=== PATIENT | female | born 1950 | race Caucasian/White ===

== ENCOUNTER 2018-02-08 23:45 | Emergency (ER) | payer MEDICARE ==
[~2018-02-08] VITALS: Ht 157.5 cm; Wt 74.8 kg
--- OUTSIDE RECORDS SUMMARY | 2018-02-08 23:47 | XMS REPORT | Clinical Summary ---
Author Author [facility] Organization [facility] Address Unknown Phone Unavailable Care Team Providers Care Configuration Release Manager Name Role Phone Asked, No Pcp PCP Unavailable Allergies No Known Allergies Medications End Date Status Medication Sig Dispensed Refills Start Date Active SYMBICORT 160-4.5 0 mcg/actuation inhaler 8 Active citalopram (CeleXA) 20 MG 0 tablet 8 Active DULoxetine (CYMBALTA) 60 0 MG capsule 8 Active gabapentin (NEURONTIN) 0 300 mg capsule 8 Active traMADol (ULTRAM) 50 mg 0 tablet 8 Active naproxen (NAPROSYN) 250 Take 250 mg 0 MG tablet by mouth 2 (two) times a day with meals. Active Problems No known active problems Encounters Care Team Description Date Type Specialty Fito Alvarez MD 05/27/2017 Anesthesia General Surgery Event Vladimir Schroeder MD Cholecystectomy, Laparoscopic, With Possible Cholangiography, 05/27/2017 Surgery General Surgery Vladimir Schroeder MD Acute calculous cholecystitis 05/27/2017 Hospital General Surgery Encounter Vladimir Schroeder MD Preoperative testing 05/23/2017 Hospital Radiology Encounter Vladimir Schroeder MD Preoperative testing (Primary Dx) 05/23/2017 Pre-Admit Pre-Admission Testing Testing Appointment after 02/07/2017 Family History Medical History Relation Name Comments Depression Brother Stroke Mother Arthritis Sister Relation Name Status Comments Brother Father Mother Sister Social History Date Tobacco Use Types Packs/Day Years Used Quit: 2004 Former Smoker Cigarettes 0.5 4 Smokeless Tobacco: Never Used Alcohol Use Drinks/Week oz/Week Comments No Sex Assigned at Date Recorded Not on file Industry Job Start Date Occupation Not on file Not on file Not on file Travel End Travel History Travel Start No recent travel history available. Last Filed Vital Signs Time Taken Vital Sign Reading 05/27/2017 1:59 PM CDT Blood Pressure 102/60 05/27/2017 1:59 PM CDT Pulse 72 05/27/2017 1:16 PM CDT Temperature 36.4 C (97.6 F) 05/27/2017 1:59 PM CDT Respiratory Rate 16 05/27/2017 1:59 PM CDT Oxygen Saturation 93% - Inhaled Oxygen - Concentration 05/27/2017 8:17 AM CDT Weight 70.8 kg (156 lb 1.6 oz) 05/27/2017 8:17 AM CDT Height 157.5 cm (5' 2") 05/27/2017 8:17 AM CDT Body Mass Index 28.55 Plan of Treatment Health Maintenance Due Date Last Done Comments BREAST CANCER SCREENING 11/09/2001 COLON CANCER SCREENING 11/09/2001 SHINGRIX VACCINE (1 of 2) 11/09/2001 ZOSTER VACCINE 2011 PNEUMOCOCCAL 11/09/2016 POLYSACCHARIDE VACCINE AGE 65 AND OVER PNEUMOCOCCAL-13 11/09/2016 INFLUENZA VACCINE 10/12/2017 Procedures Comments Procedure Name Priority Date/Time Associated Diagnosis SURGICAL PATHOLOGY Routine 05/27/2017 REQUEST 2:47 PM CDT FL CHOLANGIOGRAM Routine 05/27/2017 INTRAOPERATIVE 12:05 PM CDT MO AN ELECTIVE Routine 05/27/2017 ENDOTRACHEAL AIRWAY 10:51 AM CDT Procedure Note - Abner Hauser - 05/27/2017 10:51 AM CDT Airway Date/Time: 05/27/2017 10:45 AM Performed by: ABNER HAUSER Authorized by: ABNER HAUSER Location: OR Urgency: Elective Difficult Airway: No Anesthesio logist: ABNER HAUSER Performed by: anesthesio logist Preoxygena leigh ann with 100% O2: Yes C-spine Precaution s Maintained Throughout : Yes Mask Ventilatio n: Easy mask (with # 8 oral airway) Final Airway Type: Endotrache al airway Final Endotrache al Airway: ETT Cuffed: Yes Technique Used: Direct laryngosco py Devices/Me thods Used in Placement: Intubatin g stylet Insertion Site: Oral Blade Type: Rony Laryngosco pe Blade/Vide olaryngosc ope Blade Size: 3 ETT Size (mm): 6.5 Cuff at minimum occlusion pressure: Yes Measured from: Lips ETT to Lips (cm): 20 Placement Verified by: CO2 detection, direct visualizat ion and equal breath sounds Laryngosco pic view: Grade IIa - partial view of glottis Rapid Sequence Induction (RSI): No Modified RSI: No Number of Attempts at Approach: 1 XR CHEST 2 VW Routine 05/23/2017 Preoperative testing 4:03 PM CDT ZZESTIMATED GFR Routine 05/23/2017 3:40 PM CDT COMPREHENSIVE METABOLIC Routine 05/23/2017 Preoperative testing PANEL 3:40 PM CDT HC COMPLETE BLD COUNT Routine 05/23/2017 Preoperative testing W/AUTO DIFF 3:40 PM CDT ECG PRE/POST OP Routine 05/23/2017 Preoperative testing 2:36 PM CDT after 02/07/2017 Results * Surgical pathology request (05/27/2017 2:47 PM CDT) [facility] OF PATHOLOGY AND GENOMIC MEDICINE Surgical pathology report See link below for PDF Lab [facility] DEPARTMENT OF Report PATHOLOGY AND GENOMIC MEDICINE Result status This is Final Report to [facility] DEPARTMENT OF [id number] PATHOLOGY AND GENOMIC MEDICINE Performing Organization Address City/State/Zipcode Phone Number [facility] DEPARTMENT OF [facility] [place] [address] PATHOLOGY AND GENOMIC MEDICINE * FL Cholangiogram Intraoperative (05/27/2017 12:05 PM CDT) Narrative Performed At PROCEDURE:FL CHOLANGIOGRAM INTRAOPERATIVE [facility] CLINICAL HISTORY:Laparoscopic cholecystectomy COMPARISON:None. TECHNIQUE: 2 fluoroscopic spot images of the right upper quadrant to encompass the biliary tree in the AP projection were performed on the C-arm fluoroscopic device in the OR. A total kV of84, mA of 2.5, and fluoroscopic time of1 second was offered to for the procedure. Fluoroscopic assistance was offered for the procedure. The DAP (dose absorbed product) is: 0.01 mGy-cm^2 FINDINGS: A total of 6 mL of Omnipaque [address] Schroeder for the procedure. Opacification of the common bile duct and visualized common hepatic duct and intrahepatic biliary tree demonstrates no filling defects. Free flow of contrast is demonstrated into the duodenum. IMPRESSION: No evidence of retained stones. [id number] . Procedure Note Interface, Radiology Results Incoming - 05/27/2017 1:01 PM CDT PROCEDURE: FL CHOLANGIOGRAM INTRAOPERATIVE CLINICAL HISTORY: Laparoscopic cholecystectomy COMPARISON: None. TECHNIQUE: 2 fluoroscopic spot images of the right upper quadrant to encompass the biliary tree in the AP projection were performed on the C-arm fluoroscopic device in the OR. A total kV of 84, mA of 2.5, and fluoroscopic time of 1 second was offered to Dr. Schroeder for the procedure. Fluoroscopic assistance was offered for the procedure. The DAP (dose absorbed product) is: 0.01 mGy-cm^2 FINDINGS: A total of 6 mL of Omnipaque [address] Schroeder for the procedure. Opacification of the common bile duct and visualized common hepatic duct and intrahepatic biliary tree demonstrates no filling defects. Free flow of contrast is demonstrated into the duodenum. IMPRESSION: No evidence of retained stones. [id number] . Performing Organization Address City/State/[facility] Cent[facility] Phone Number [facility] [address] [place] [address] * XR Chest 2 Vw (05/23/2017 4:03 PM CDT) Narrative Performed At Examination:XR CHEST 2 VW [facility] Clinical history:"Z01.818 Encounter for other preprocedural examination, preop" Comparison:09/11/2005 Two radiographic views of the chest were evaluated. IMPRESSION: A right hilar mass is noted and measures nearly 4 cm in diameter.Left suprahilar fullness is also identified; please consider chest CT imaging for a more definitive evaluation.There are no apparent pleural effusions or pneumothoraces.The cardiomediastinal silhouette is not enlarged.The bones of the chest appear be within normal limits. [facility]-[id number] Procedure Note Interface, Radiology Results Incoming - 05/23/2017 4:19 PM CDT Examination: XR CHEST 2 VW Clinical history: "Z01.818 Encounter for other preprocedural examination, preop" Comparison: 09/11/2005 Two radiographic views of the chest were evaluated. IMPRESSION: A right hilar mass is noted and measures nearly 4 cm in diameter. Left suprahilar fullness is also identified; please consider chest CT imaging for a more definitive evaluation. There are no apparent pleural effusions or pneumothoraces. The cardiomediastinal silhouette is not enlarged. The bones of the chest appear be within normal limits. [facility]-[id number] Performing Organization Address City/[facility]/Zipcode Phone Number [facility] [address] [place] [address] * Estimated GFR (05/23/2017 3:40 PM CDT) GFR Non Af Amer 84 mL/min/1.73 m2 [facility] DEPARTMENT OF PATHOLOGY AND GENOMIC MEDICINE GFR Af Amer >90 mL/min/1.73 m2 [facility] DEPARTMENT OF Comment: PATHOLOGY AND Chronic kidney disease: <60 GENOMIC MEDICINE mL/min/1.73m2 Kidney failure: <15 mL/min/1.73m2 The estimated GFR is calculated from the IDMS-traceable Modification of Diet in Renal Disease Equation. The accuracy of the calculation is poor when the creatinine is normal. Calculated values >90 mL/min/1.73m2 are not reported. This equation has not been validated in children (<18 years), women, the elderly (>70 years), or ethnic groups other than Caucasians and Americans. Specimen Plasma specimen Performing Organization Address City/State/Zipcode Phone Number [facility] [address] [place] [address] PATHOLOGY AND GENOMIC MEDICINE * CBC with platelet and differential (05/23/2017 3:40 PM CDT) WBC 5.8 4.2 - 11.0 k/uL [facility] DEPARTMENT OF PATHOLOGY AND GENOMIC MEDICINE RBC 4.18 4.04 - 5.86 m/uL [facility] DEPARTMENT OF PATHOLOGY AND GENOMIC MEDICINE HGB 14.4 11.5 - 15.3 g/dL [facility] DE[facility]MENT OF PATHOLOGY AND GENOMIC MEDICINE HCT 42.1 34.0 - 45.0 % [facility]MENT OF PATHOLOGY AND GENOMIC MEDICINE MCV 100.7 (H) 80.0 - 98.0 fL [facility]MENT OF PATHOLOGY AND GENOMIC MEDICINE MCH 34.4 (H) 27.0 - 34.0 pg [facility] DEPARTMENT OF PATHOLOGY AND GENOMIC MEDICINE MCHC 34.2 31.5 - 36.5 g/dL [facility] DEPARTMENT OF PATHOLOGY AND GENOMIC MEDICINE RDW - SD 48.7 37.0 - 51.0 fL [facility] OF PATHOLOGY AND GENOMIC MEDICINE MPV 12.4 (H) 7.4 - 10.4 fL [facility]MENT OF PATHOLOGY AND GENOMIC MEDICINE Platelet count 53 (L) 150 - 400 k/uL [facility] OF PATHOLOGY AND GENOMIC MEDICINE Nucleated RBC 0.00 /100 WBC [facility] DE[facility]MENT OF PATHOLOGY AND GENOMIC MEDICINE Neutrophils 80.6 (H) 36.0 - 66.0 % [facility]MENT OF PATHOLOGY AND GENOMIC MEDICINE Lymphocytes 11.6 (L) 24.0 - 44.0 % [facility]MENT OF PATHOLOGY AND GENOMIC MEDICINE Monocytes 4.9 0.0 - 6.0 % [facility]MENT OF PATHOLOGY AND GENOMIC MEDICINE Eosinophils 2.1 0.0 - 6.0 % [facility]MENT OF PATHOLOGY AND GENOMIC MEDICINE Basophils 0.3 0.0 - 1.2 % [facility]MENT PATHOLOGY AND GENOMIC MEDICINE Immature granulocytes 0.5 0.0 - 1.0 % [facility]MENT OF PATHOLOGY AND GENOMIC MEDICINE Specimen Blood Performing Organization Address City/State/Zipcode Phone Number [place] [phone] [place] [address] PATHOLOGY AND GENOMIC MEDICINE * Comprehensive metabolic panel (05/23/2017 3:40 PM CDT) Sodium 141 135 - 150 mEq/L [facility]MENT OF PATHOLOGY AND GENOMIC MEDICINE Potassium 3.7 3.5 - 5.0 mEq/L [facility]MENT OF PATHOLOGY AND GENOMIC MEDICINE Chloride 105 100 - 109 mEq/L [facility]MENT OF PATHOLOGY AND GENOMIC MEDICINE CO2 29 24 - 32 mmol/L [facility] DEPARTMENT OF PATHOLOGY AND GENOMIC MEDICINE Anion gap 7 7 - 15 mEq/L [facility] OF Comment: PATHOLOGY AND Starting from June [employer] [facility] , anion gap calculation no longer incorporates potassium. Please note the change. BUN 19 (H) 7 - 18 mg/dL [facility]MENT OF PATHOLOGY AND [employer] [facility] Creatinine 0.7 (L) 0.8 - 1.5 mg/dL [facility]MENT OF PATHOLOGY AND GENOMIC MEDICINE Glucose 86 65 - 100 mg/dL [facility] DE[facility]MENT OF PATHOLOGY AND GENOMIC MEDICINE Calcium 8.7 8.6 - 10.7 mg/dL [facility]MENT OF PATHOLOGY AND GENOMIC MEDICINE Protein 7.3 6.3 - 8.2 g/dL [facility] DE[facility]MENT OF PATHOLOGY AND GENOMIC MEDICINE Albumin 3.5 3.2 - 5.0 g/dL [facility]MENT OF PATHOLOGY AND GENOMIC MEDICINE A/G ratio 0.9 0.7 - 3.8 [facility] DE[facility]MENT OF PATHOLOGY AND GENOMIC MEDICINE Alkaline phosphatase 71 30 - 120 U/L [facility]MENT OF PATHOLOGY AND GENOMIC MEDICINE AST 31 15 - 37 U/L [facility]MENT OF PATHOLOGY AND GENOMIC MEDICINE ALT 24 (L) 30 - 65 U/L [facility]MENT OF PATHOLOGY AND GENOMIC MEDICINE Total bilirubin 1.2 0.2 - 1.2 mg/dL [facility] DE[facility]MENT OF PATHOLOGY AND GENOMIC MEDICINE Specimen Plasma specimen Performing Organization Address City/State/[facility] Centercode Phone Number [place] [address] [place] [address] PATHOLOGY AND GENOMIC MEDICINE * ECG Pre/Post Op (05/23/2017 2:36 PM CDT) Ventricular rate 73 [facility] Atrial rate 73 [facility] MO interval 136 [facility] QRSD interval 84 [facility] QT interval 402 [facility] QTC interval 442 [facility] P axis 1 26 [facility] QRS axis 1 10 [facility] T wave axis 0 [facility] EKG impression Normal sinus rhythm-ST & T [facility] wave abnormality, consider anterolateral ischemia-Prolonged QT-Abnormal ECG-No previous ECGs available- Performing Organization Address City/State/Zipcode Phone Number [facility] MUSE [address] [place] [address] after 02/07/2017 Insurance Payer Benefit Subscriber ID Type Phone Address Plan / Group [employer] MEDICARE HUMANA xxxxxxxxx PPO MEDICARE PPO/PFFS/[place] [facility] [place] Advance Directives Patient has advance care planning documents on file. For more information, zacarias palumbo contact: Luis Morgan [address] [place] [address]
--- OUTSIDE RECORDS SUMMARY | 2018-02-08 23:48 | XMS REPORT | Summary of Care ---
Author Author [facility] Organization [facility] Address Unknown Phone Unavailable Encounter ISIDORO Tam(JUAN ANTONIO) [id number] Date(s): 09/01/15 - 09/01/15 [facility] [address] [place] [address]- [facility] [phone] Discharge Disposition: Home Attending Physician: Sharan Villar MD Referring Physician: Sharan Villar MD Vital Signs Most recent to 1 oldest [Reference Range]: Height 157.48 cm (09/01/15 11:29 AM) Temperature Oral 97.5 DegF [96.4-99.1 DegF] (09/01/15 11:29 AM) Blood Pressure 129/76 mmHg [90-140/60-90 mmHg] (09/01/15 11:29 AM) Peripheral Pulse 66 bpm Rate [60-100 bpm] (09/01/15 11:29 AM) Weight 70.17 kg (09/01/15 11:29 AM) Body Mass Index 28.29 m2 (09/01/15 11:29 AM) Problem List Condition Effective Dates Status Health Status Informant Cholelithiasis(Confi Active rmed) Cholelithiasis(Confi Active rmed) 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 Smoking Status Never smoker; Exposure to Tobacco Smoke None; Cigarette Smoking Last 365 Days No; Reg Smoking Cessation Counseling No Assessment and Plan No data available for this section
--- OUTSIDE RECORDS SUMMARY | 2018-02-08 23:48 | XMS REPORT | Summary of Care ---
Author Author [facility] Organization [facility] Address Unknown Phone Unavailable Encounter ISIDORO Tam(JUAN ANTONIO) [id number] Date(s): 10/10/14 - 10/10/[address] Discharge Disposition: Home Attending Physician: Sharan Villar MD Referring Physician: Sharan Villar MD Vital Signs Most recent to 1 oldest [Reference Range]: Height 157.4 cm (10/10/14 11:09 AM) Most recent to 1 oldest [Reference Range]: Blood Pressure 106/65 mmHg [90-140/60-90 mmHg] (10/10/14 11:09 AM) Most recent to 1 oldest [Reference Range]: Peripheral Pulse 67 bpm Rate [60-100 bpm] (10/10/14 11:09 AM) Most recent to 1 oldest [Reference Range]: Weight 73.182 kg (10/10/14 11:09 AM) Most recent to 1 oldest [Reference Range]: Body Mass Index 29.54 m2 (10/10/14 11:09 AM) Problem List Condition Effective Dates Status Health Status Informant Cholelithiasis(Confi Active rmed) 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
--- OUTSIDE RECORDS SUMMARY | 2018-02-08 23:48 | XMS REPORT | Summary of Care ---
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 Start Date: 05/23/14 Stop Date: 08/21/14 Status: Ordered hepatitis B adult vaccine 10 mcg/mL IM Susp (Recombivax HB) 10 microgram, 1 mL, Route: IM, ONCE, Dosing Weight 77.4, kg, Priority: STAT, Sta rt date: 05/23/14 11:13:00, Stop date: 05/23/14 11:13:00 Start Date: 05/23/14 Stop Date: 05/23/14 Status: Ordered Results No data available for this section Immunizations No data available for this section Procedures No data available for this section Social History Social History Type Response Alcohol Never, Previous treatment: None. Smoking Status Never smoker; Exposure to Tobacco Smoke None; Cigarette Smoking Last 365 Days No; Reg Smoking Cessation Counseling No Assessment and Plan No data available for this section
--- OUTSIDE RECORDS SUMMARY | 2018-02-08 23:48 | XMS REPORT | Summary of Care ---
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) COPD (chronic Active obstructive pulmonary disease)(Confirmed) Hepatitis Resolved C(Confirmed) HTN Active (hypertension)(Confi rmed) Osteopenia(Confirmed Active ) Postnecrotic Active cirrhosis of liver(Confirmed) Allergies, Adverse Reactions, Alerts Substance Reaction Severity Status NKDA Active Medications No data available for this section Results No data available for this section Immunizations No data available for this section Procedures Procedure Date Related Diagnosis Body Site Status Hysterectomy Completed Social History Social History Type Response Alcohol Never, Previous treatment: None. Smoking Status Never smoker; Exposure to Tobacco Smoke None; Cigarette Smoking Last 365 Days No; Reg Smoking Cessation Counseling No entered on: 09/01/15 Assessment and Plan No data available for this section
--- OUTSIDE RECORDS SUMMARY | 2018-02-08 23:48 | XMS REPORT | Summary of Care ---
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) COPD (chronic Active obstructive pulmonary disease)(Confirmed) HTN Active (hypertension)(Confi rmed) Osteopenia(Confirmed Active ) Postnecrotic Active cirrhosis of liver(Confirmed) Allergies, Adverse Reactions, Alerts Substance Reaction Severity Status NKDA Active Medications No data available for this section Medications Administered During Your Visit No data available for this section Immunizations No data available for this section Social History Social History Type Response Smoking Status Never smoker, Exposure to Tobacco Smoke None, Cigarette Smoking Last 365 Days No, Reg Smoking Cessation Counseling No
--- OUTSIDE RECORDS SUMMARY | 2018-02-08 23:48 | XMS REPORT | Summary of Care ---
Author Organization Unknown Address Unknown Phone Unavailable Encounter HQ Santiagontr_belkys([facility]) [id number] Date(s): 12/28/13 - 12/28/13 [facility] - [address] [address] [place] Discharge Disposition: Home Physician Attending: Feliciano Hanks MD Reason for Visit 490 - BRONCHITIS NOS Problem List No data available for this section Allergies, Adverse Reactions, Alerts No data available for this section Medications No data available for this section Medications Administered During Your Visit No data available for this section Immunizations No data available for this section
--- OUTSIDE RECORDS SUMMARY | 2018-02-08 23:48 | XMS REPORT | Summary of Care ---
Author Author [facility] Organization [facility] Address Unknown Phone Unavailable Encounter [facility] Anel(JUAN ANTONIO) [phone] Date(s): 03/03/15 - 03/03/[address] Discharge Disposition: Home Attending Physician: Sharan Villar MD Referring Physician: Sharan Villar MD Vital Signs Most recent to 1 oldest [Reference Range]: Height 157.48 cm (03/03/15 11:46 AM) Blood Pressure 107/67 mmHg [90-140/60-90 mmHg] (03/03/15 11:46 AM) Weight 73.239 kg (03/03/15 11:46 AM) Body Mass Index 29.53 m2 (03/03/15 11:46 AM) Problem List Condition Effective Dates Status Health Status Informant Cholelithiasis(Confi Active rmed) Cholelithiasis(Confi Active rmed) 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
--- OUTSIDE RECORDS SUMMARY | 2018-02-08 23:48 | XMS REPORT | Summary of Care ---
Author Author [facility] [place] Organization [facility] [place] Address Unknown Phone Unavailable Encounter ISIDORO Tam(FIN) [phone] Date(s): 07/15/17 - 07/15/17 [facility] [place] [address] [place] [phone] Discharge Disposition: Home or Self Care Attending [...]
--- OUTSIDE RECORDS SUMMARY | 2018-02-08 23:48 | XMS REPORT | Summary of Care ---
Author Author [facility] [place] Organization [facility] [place] Address Unknown Phone Unavailable Encounter [facility] Love[facility]belkys(FIN) [phone] Date(s): 05/13/15 - 05/13/15 [facility] [place] [address] [place] [phone] Discharge Disposition: Home Attending Physician: Sharan Villar MD Vital Signs No data available for [...]
--- OUTSIDE RECORDS SUMMARY | 2018-02-08 23:48 | XMS REPORT | Summary of Care ---
Author Organization Unknown Address Unknown Phone Unavailable Encounter [facility](JUAN ANTONIO) [phone] Date(s): 04/23/14 - 04/23/[address] Discharge Disposition: Home Physician Attending: Sharan Villar MD Physician_Referring: Sharan Villar MD Reason for Visit [facility]/ [facility] Problem List Condition Effective Dates Status Health [...]
--- OUTSIDE RECORDS SUMMARY | 2018-02-08 23:48 | XMS REPORT | Summary of Care ---
Author Author [facility] [place] Organization [facility] [place] Address Unknown Phone Unavailable Encounter [facility](FIN) [id number] Date(s): 04/22/16 - 04/22/16 [facility] [place] [address] [phone] Discharge Disposition: Home or Self Care Attending Physician: Hallie Chapman MD Vital Signs No data available for [...]
--- OUTSIDE RECORDS SUMMARY | 2018-02-08 23:48 | XMS REPORT | Continuity of Care Document ---
Author Author Thong jessee [facility] Interface Address Unknown Phone Unavailable Problems Problem Status Onset Date Classification Date Reported Comments Source R92.8 Active 08/26/2017 [facility] DD-6 MONTH F/U VISIT Active 03/03/2015 [facility] FOLLOW UP Active 01/29/2015 [facility] CIRRHOSIS HEP C Active 11/21/2014 [facility] 571.8 - CHRONIC LIVER D Active 11/13/2014 LLOYD Degrootann HEP C Active 07/11/2014 [facility] 379.91 - PAIN IN OR AROU Active 05/27/2014 LLOYD Shields HEP C Active 04/25/2014 [facility] FOLLWO UP Active 04/24/2014 [facility] DDC-HEP C VISIT Active 03/25/2014 [facility] BDDC/ ESOPHAGEAL VARICES Active 03/25/2014 [facility] NEW PATIENT/ CIRRHOSIS, HEP C/ REF. Active 02/21/2014 [facility] Cholelithiasis Active Problem 10/13/2014 [facility] [place] COPD (<span ID="[id number]">Confirmed</span>) Active Problem 10/13/2014 [facility] [place] HTN (<span ID="[id number]">Confirmed</span>) Active Problem 10/13/2014 [facility] [place] Postnecrotic cirrhosis of liver Active Problem 10/13/2014 [facility] [place] Cholelithiasis Active [facility]04[facility] Compens[facility] cirrhosis related to hepatitis C virus (<span ID="[id number]">Confirmed</span>) Active Problem 09/04/2017 L[facility]YD Shields,[facility] [place] COPD (<span ID="[id number]">Confirmed</span>) Active Problem 09/04/2017 [facility] [place] [facility] Hepatitis C Resolved Problem [facility]/04[facility] HTN (<span ID="[id number]">Confirmed</span>) Active Problem 09/04/2017 L[facility] [place] Osteopenia Active Problem 09/04/2017 [facility] Postnecrotic cirrhosis of liver Active Problem 09/04/2017 [facility] CIRRHOSIS OF LIVER NOS Active [facility] ROUTINE MEDICAL EXAM Active [facility] MEDICAL SERVICES NOT AVAILABLE IN HOME Active [facility] ENCNTR FOR GENERAL ADULT MEDICAL EXAM W/ Active [facility] Medications Medication Details Route Status Patient Instructions Ordering Provider Order Date Source Denisse See Instructions, 1 tab po daily, 0 Refill(s)Special Instructions: 1 tab po daily Active 10/10/2014 [facility] Famotidine 20 MG Oral Tablet 20 mg=1 tab, PO, QPM, Heartburn, ONLY TAKE NEEDED FOR HEARTBURN., X 30 day, # 30 tab, 2 Refill(s), Pharmacy: [facility] [id number] Instructions: ONLY TAKE NEEDED FOR HEARTBURN. Active 05/23/2014 [facility] Hepatitis B Surface Antigen Vaccine 0.01 MG/ML Injectable Suspension 10 microgram, 1 mL, Route: IM, ONCE, Dosing Weight 77.4, kg, Priority: STAT, Start date: 05/23/14 11:13:00, Stop date: 05/23/14 11:13:00 Inactive 05/23/2014 [facility] milk thistle oral capsule 0 Refill(s) Active 03/25/2014 [facility] carvedilol 3.125 mg oral tablet 3.125 mg=1 tab, PO, Q12H, # 60 tab, 0 Refill(s) Active 03/25/2014 [facility] spironolactone 50 mg oral tablet 50 mg=1 tab, PO, BID, # 60 tab, 0 Refill(s) Active 03/25/2014 [facility] citalopram 40 mg oral tablet 40 mg=1 tab, PO, Daily, # 30 tab, 0 Refill(s) Active 03/25/2014 [facility] cetirizine 10 mg oral tablet 10 mg=1 tab, PO, Daily, # 30 tab, 0 Refill(s) Active 03/25/2014 [facility] Allergies, Adverse Reactions, Alerts Substance Category Reaction Severity Reaction type Status Date Reported Comments Source Immunizations Immunization Date Given Site Status Last Updated Comments Source Results Order Name Results Value Reference Range Date Interpretation Comments Source Stereo Breast BX Uni Primary Side MA Stereo Breast BX Uni Primary Side MA STEREOTACTIC GUIDED BIOPSY RIGHT BREAST WITH MARKING DEVICE INSERTED AND POST DIGITAL MAMMOGRAPHIC IMAGIN09/01/2017 CLINICAL: Indeterminate right breast calcifications. PATIENT CONSENT: Oral and written informed consent was obtained. Risks, benefits, and alternatives were discussed with the patient. Risks include but are not limited to pain, infection, bleeding, incomplete procedure, repeat procedure, pneumothorax, damage to surrounding tissues, and allergic reaction. The patient understands the plan and wishes to proceed. A time out was performed immediately prior to the procedure to confirm the patient's identity (name/date of ) and correct procedure site. Correlation is made to exams dated: 07/28/2017 mammogram and 06/29/2017 mammogram - [facility]. A stereotactic guided biopsy was performed for the concerning area of clustered calcifications located in the right breast at 12 o'clock posterior depth. This was described on the previous mammography report. The skin was prepped in the usual manner. 10 ccs of 1% lidocaine was administered during the procedure. A skin stephen was made in the breast. The abnormality was approached from the crani ocaudal aspect using an upright digital mammography unit. A 9 gauge biopsy needle was placed adjacent to the abnormality under computer guidance and confirmatory stereotactic mammography images were obtained to document needle placement. Once the needle was documented to be in the correct location, multiple cores were obtained using the vacuum assisted Suros Eviva device. A SecurMark benjamin shaped biopsy clip was inserted into the biopsy cavity. A skin adhesive and a sterile dressing were applied to the access site. Post procedure digital mammographic imaging interpreted on a dedicated mammography workstation demonstrates the clip at the targeted area and complete removal of the calcifications. The specimens were sent to the laboratory for pathological analysis. IMPRESSION: STEREOTACTIC GUIDED BIOPSY BENIGN Stereotactic guided biopsy of the area of clustered calcifications in the right breast at 12 o'clock posterior depth was successful with no apparent post procedure complications. Pathology indicates benign results - "Fibroadenomatous nodules with calcifications; Columnar cell change, calcifications, no atypia". Pathology results are concordant with imaging findings. A follow-up right diagnostic mammogram and possible ultrasound in 6 months is recommended to demonstrate stability.(03/03/2018) This exam was interpreted at [id number] for [facility]. Juvencio valenzuelat/:09/05/2017 14:17:32 Weight Checker(s): Crystal Champion, [facility] letter sent: Post Bx Results 09/01/2017 - - Read by: Juvencio Patel MD Dictated Date/time: 09/05/17 14:17 Electronically Signed by: Juvencio Patel MD 09/05/17 14:17 FINAL REPORT [facility] Breast Mammo Diag YANI incl CAD AR Breast Mammo Diag YANI incl CAD AR BILATERAL DIGITAL DIAGNOSTIC MAMMOGRAM WITH CAD: 07/28/2017 CLINICAL: Other Abnormal And Inconclusive Findings On Diagnostic Imaging Of Breast/R92.8. Current study was evaluated with a Computer Aided Detection (CAD) system. COMPARISON:Comparison is made to exam dated: 06/29/2017 mammogram - [facility]. TECHNIQUE: Mammographic views were obtained using digital acquisition. Current study was also evaluated with a Computer Aided Detection (CAD) system. FINDINGS: The tissue of both breasts is heterogeneously dense, which could obscure detection of small masses. Additional evaluation was performed. There are 0.9 cm x 0.5 cm x 0.3 cm grouped linear calcifications in the right breast at 12 o'clock posterior depth 9 cm from the nipple. Scattered additional groups of similar-appearing grouped coarse calcifications are most likely related to degenerating fibroadenomas. This includes the previously decribed groups in the right breast 5 o'clock position, 6 cm from the nipple and in the left breast 2 o'clock, 13 cm position, from the nipple. No other significant masses, calcifications, or other findings are seen in either breast. IMPRESSION: SUSPICIOUS OF MALIGNANCY RECOMMENDATION:The 0.9 cm x 0.5 cm x 0.3 cm grouped linear calcifications in the right breast are at a low suspicion for malignancy. A stereotactic biopsy is recommended. Also recommend comparison to prior exams. Scattered additional groups of similar-appearing grouped coarse calcifications are most likely related to degenerating fibroadenomas. Management of these calcifications can be based on the biopsy results. This exam was interpreted at [id number] for TORRES Shields, SL 15. SUMMARY: These findings were discussed with the patient at the time of examination. The patient will attempt to obtain her prior exams. If received, an addendum will be issued. The patient also reports she may be on blood thinning medications. She was asked to verify this with her physician and potentially withhold these medications prior to her biopsy if clinically feasible. Professional services are provided by the [facility]. Jus Andujar M.D. rsl/:07/28/2017 11:30:49 Weight Checker(s): Paola Melton RT(R)(M), [facility] [place] letter sent: BI-RADS 4/5 Mammogram BI-RADS: 4a Suspicious abnormality - low suspicion for malignancy 07/28/2017 - - Read by: Jus Andujar MD Dictated Date/time: 07/28/17 11:30 Electronically Signed by: Jus Andujar MD 07/28/17 11:30 FINAL REPORT TORRES Shields Brain w/wo contrast MRI Brain w/wo contrast MRI Patient Name: HOLDEN ONEILL : 1950; Age: 66 years y/o Female MR: [id number] Study: Brain w/wo contrast MRI 07/15/2017 8:06 AM CDT Ordering Physician: Zoltan Hussein MD Clinical Indication: - R41.3 Other amnesia; Comparison: None TECHNIQUE : Multiplanar imaging of the brain was obtained both prior to and after uncomplicated IV administration of 15 cc Dotarem FINDINGS: BRAIN PARENCHYMA: There is mild to moderate diffuse cerebral atrophy, especially perisylvian and hippocampal volumes. There are moderate, punctate T2 hyperintensities involving the cerebral white matter and subinsular white matter without enhancement, blooming artifact nor diffusion restriction. These are nonspecific but likely represent small vessel ischemic change . Possible arachnoid cyst is noted in the region of the torcula, with slight thinning of the right paramedian occipital bone. No restricted diffusion is identified. There is no mass effect or midline shift. There is no extra- axial fluid collection or intraparenchymal hemorrhage. There is no abnormal enhancement. CEREBELLOPONTINE REGIONS AND SKULL BASE: The cerebellopontine angles appear unremarkable. No skull base abnormality is seen. VENTRICLES/SULCI/CISTERNS: The ventricles are normal in size and configuration. The basal cisterns are patent. VISUALIZED VESSELS: Major intracranial flow voids are preserved. ORBITS, VISUALIZED PARANASAL SINUSES AND MASTOIDS: Paranasal sinuses are clear. The mastoid air cells are clear. No orbital pathology is seen. IMPRESSION: 1. Mild to moderate cerebral volume loss more noticeable in the hippocampal regions. Correlate for neurodegenerative disorders. 2. Moderate probable small vessel ischemic change without acute intercranial abnormality. 07/15/2017 - - Read by: Jed Nj MD Dictated Date/time: 07/15/17 11:11 Electronically Signed by: Jed Nj MD 07/15/17 11:15 FINAL REPORT TORRES Shields Breast Mammo Scrn YANI incl CAD MA Breast Mammo Scrn YANI incl CAD MA BILATERAL DIGITAL SCREENING MAMMOGRAM WITH CAD: 06/29/2017 CLINICAL: Routine/Screening. Current study was evaluated with a Computer Aided Detection (CAD) system. COMPARISON:No prior exams were available for comparison. TECHNIQUE: Mammographic views were obtained using digital acquisition. Current study was also evaluated with a Computer Aided Detection (CAD) system. FINDINGS: The tissue of both breasts is almost entirely fat. There are grouped linear calcifications in the right breast at 12 o'clock posterior depth 9.5 cm from the nipple. There also are grouped round calcifications in the right breast at 5 o'clock middle depth 6 cm from the nipple. There are grouped heterogeneous calcifications in the left breast at 2 o'clock posterior depth 13 cm from the nipple. No other significant masses or calcifications are seen in either breast. IMPRESSION: INCOMPLETE: NEEDS ADDITIONAL IMAGING EVALUATION RECOMMENDATION:The grouped linear calcifications in the right breast at 12 o'clock posterior depth are indeterminate. Magnification views are recommended. The grouped round calcifications in the right breast at 5 o'clock middle depth are indeterminate. Magnification views are recommended. The grouped heterogeneous calcifications in the left breast at 2 o'clock posterior depth are indeterminate. Magnification views are recommended. This exam was interpreted at [id number] for KAROL Powell 15. Professional services are provided by the [facility]. Guillaume Casiano M.D., cm/andrei:07/13/2017 09:44:20 Weight Checker(s): RT Elvis(R)(M), [facility] letter sent: BI-RADS 0 Mammogram BI-RADS: 0 Indeterminate 06/29/2017 - - Read by: Donald Montano MD Dictated Date/time: 07/13/17 09:44 Electronically Signed by: Donald Montano MD 07/13/17 09:44 FINAL REPORT LLOYD Shields Chest 2 views DX Chest 2 views DX EXAM: Chest 2 views DX HISTORY: J44.9 Chronic obstructive pulmonary disease, unspecified COMPARISON: 12/28/2013 The heart size is normal and the lungs are clear. There is no pleural effusion or pneumothorax. No gross skeletal abnormality. IMPRESSION: No acute abnormality. 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 TECHNIQUE: Multiplanar grayscale, color Doppler and spectral Doppler ultrasound images of the abdomen, and spectral Doppler. FINDINGS: Liver: Craniocaudal length: 10.6 cm. Shrunken Echogenicity: Heterogeneous Surface: Nodular Mass (size and location): None. Hepatic and portal vasculature: Hepatic artery: Patent with antegrade pulsatile flow. Hepatic artery: Patent with antegrade pulsatile flow. Common hepatic artery Resistive index: 0.77 Right hepatic artery Resistive index: 0.74 Left hepatic artery Resistive index: 0.55 Portal veins: Patent with normal hepatopetal monophasic flow. Main portal vein: 9 mm with a velocity of 17.5 cm/s Portal veins: Patent with normal hepatopetal monophasic flow. Hepatic veins: Patent with normal hepatofugal multiphasic flow. Splenic artery: Patent with antegrade pulsatile flow. Splenic vein: Patent with normal flow. Bile ducts: Common bile duct diameter: 0.4 cm. Intrahepatic ducts: Nondilated Gallbladder: Gallstones: None. Gallbladder sludge: None. Gallbladder wall: 0.2 cm. Normal. Pericholecystic fluid: None. Sonographic Garcia sign: Absent. Pancreas: Head and uncinate process: Normal. Body and tail: Not seen. Spleen: Craniocaudal length: 15.1 cm. Normal. Mass or focal lesion (size and location): None. Abdominal aorta and IVC: Visualized portions are normal. Ascites: None. IMPRESSION: Patent hepatic vasculature. Morphological changes of cirrhosis and moderate splenomegaly. 05/13/2015 - - Read by: Jessie Martinez MD Dictated Date/time: 05/13/15 13:54 Electronically Signed by: Jessie Martinez MD 05/13/15 13:57 FINAL REPORT LLOYD Hooks Elastography US Elastography US EXAM: LIVER US EXAM: LIVER DOPPLER EXAM: HEPATIC Elastography DATE: 11/27/2014 at 1016 hours. INDICATION: Chronic hepatitis C ADDITIONAL INFORMATION: None. COMPARISON: Abdominal ultrasound on 12/26/2013. TECHNIQUE: Multiplanar grayscale, color Doppler and spectral Doppler ultrasound images of the abdomen and abdominal vasculature were obtained. ULTRASOUND FINDINGS: Liver demonstrates slightly coarsened echotexture with mild surface nodularity. Right hepatic lobe measures 13.2 cm at the midclavicular line. The portal vein is approximately 10 mm in diameter. Normal hepatopetal flow is demonstrated in the main portal vein as well as in the right and left branches. Pulsatile, hepatopetal flow is demonstrated in the hepatic artery. RI is 0.77. Abdominal aorta is of normal caliber. Normal hepatofugal flow is present in the right, middle, and left hepatic veins as well as the IVC. Spleen measures 14.9 cm. There are no focal splenic lesions. The splenic vein is patent. Splenic arterial waveform is normal. Gallbladder is normally distended with mobile calculus. Gallbladder wall thickness is 1.4 mm. No sonographic Garcia's sign or pericholecystic fluid. Visualized portions of the intrahepatic biliary tree are of normal caliber. Common duct is 3 mm. Pancreas is unremarkable where visualized. No free fluid identified. Elastography FINDINGS: Stiffness Average: 9.19 kPa Stiffness Standard Deviation: 2.24 kPa Stiffness Median: 10.07 kPa Assessment: Mild fibrosis. IMPRESSION: Slightly coarsened echotexture with mild surface nodularities, compatible with cirrhotic changes. Cholelithiasis without sonographic evidence of cholecystitis. Splenomegaly. Elastography findings correlate with mild hepatic fibrosis Metavir stage F2. 11/27/2014 - - This report was dictated by a Manager Dairy/Fellow. I have personally reviewed the images as well as the Resident's interpretation and agree with the findings. Read by: Rishi Shafer MD Resident: Rishi Shafer MD Dictated Date/time: 11/27/14 10:57 Electronically Signed by: Gerardo Rajput MD 11/27/14 14:31 FINAL REPORT [facility] Liver w Liver vessels Doppler US Liver w Liver vessels Doppler US EXAM: LIVER US EXAM: LIVER DOPPLER EXAM: HEPATIC Elastography DATE: 11/27/2014 at 1016 hours. INDICATION: Chronic hepatitis C ADDITIONAL INFORMATION: None. COMPARISON: Abdominal ultrasound on 12/26/2013. TECHNIQUE: Multiplanar grayscale, color Doppler and spectral Doppler ultrasound images of the abdomen and abdominal vasculature were obtained. ULTRASOUND FINDINGS: Liver demonstrates slightly coarsened echotexture with mild surface nodularity. Right hepatic lobe measures 13.2 cm at the midclavicular line. The portal vein is approximately 10 mm in diameter. Normal hepatopetal flow is demonstrated in the main portal vein as well as in the right and left branches. Pulsatile, hepatopetal flow is demonstrated in the hepatic artery. RI is 0.77. Abdominal aorta is of normal caliber. Normal hepatofugal flow is present in the right, middle, and left hepatic veins as well as the IVC. Spleen measures 14.9 cm. There are no focal splenic lesions. The splenic vein is patent. Splenic arterial waveform is normal. Gallbladder is normally distended with mobile calculus. Gallbladder wall thickness is 1.4 mm. No sonographic Garcia's sign or pericholecystic fluid. Visualized portions of the intrahepatic biliary tree are of normal caliber. Common duct is 3 mm. Pancreas is unremarkable where visualized. No free fluid identified. Elastography FINDINGS: Stiffness Average: 9.19 kPa Stiffness Standard Deviation: 2.24 kPa Stiffness Median: 10.07 kPa Assessment: Mild fibrosis. IMPRESSION: Slightly coarsened echotexture with mild surface nodularities, compatible with cirrhotic changes. Cholelithiasis without sonographic evidence of cholecystitis. Splenomegaly. Elastography findings correlate with mild hepatic fibrosis Metavir stage F2. 11/27/2014 - - This report was dictated by a Manager Dairy/Fellow. I have personally reviewed the images as well as the Resident's interpretation and agree with the findings. Read by: Rishi Shafer MD Resident: Rishi Shafer MD Dictated Date/time: 11/27/14 10:57 Electronically Signed by: Gerardo Rajput MD 11/27/14 14:31 FINAL REPORT [facility] Vital Signs Vital Sign Value Date Comments Source Weight 70.17 09/01/2015 [facility] BMI Calculated 28.29 09/01/2015 [facility] Systolic (mm Hg) 129 09/01/2015 [facility] Diastolic (mm Hg) 76 09/01/2015 [facility] Temperature Oral (F) 97.5 F 09/01/2015 [facility] Heart Rate 66 09/01/2015 [facility] Height 157.48 cm 09/01/2015 [facility] Systolic (mm Hg) 107 03/03/2015 [facility] Diastolic (mm Hg) 67 03/03/2015 [facility] Height 157.48 cm 03/03/2015 [facility] BMI Calculated 29.53 03/03/2015 [facility] Weight 73.239 03/03/2015 [facility] Height 157.4 cm 10/10/2014 [facility] Weight 73.182 10/10/2014 [facility] BMI Calculated 29.54 10/10/2014 [facility] Heart Rate 67 10/10/2014 [facility] Systolic (mm Hg) 106 10/10/2014 [facility] Diastolic (mm Hg) 65 10/10/2014 [facility] Systolic (mm Hg) 104 07/11/2014 [facility] Diastolic (mm Hg) 65 07/11/2014 [facility] Heart Rate 69 07/11/2014 [facility] Weight 74.205 07/11/2014 [facility] Height 157.48 cm 07/11/2014 [facility] BMI Calculated 29.92 07/11/2014 [facility] Weight 77.4 05/23/2014 [facility] Height 160 cm 05/23/2014 [facility] BMI Calculated 30.23 05/23/2014 [facility] Diastolic (mm Hg) 74 03/25/2014 [facility] Respitory Rate 15 03/25/2014 [facility] Heart Rate 75 03/25/2014 [facility] Systolic (mm Hg) 124 03/25/2014 [facility] Height 157.48 cm 03/25/2014 [facility] Weight 79.5 03/25/2014 [facility] BMI Calculated 32.06 03/25/2014 [facility] Encounters Location Location Details Encounter Type Encounter Number Reason For Visit Attending Provider ADM Date DC Date Status Source [facility] [place] [facility] [id number] Freeman Viola 12/26/2013 12/27/2013 [facility] [place] [facility] [id number] Feliciano Hanks 12/28/2013 12/29/2013 [facility] Outpatient [id number] Polo Brunson Chad 03/25/2014 03/26/2014 [facility] Phone Message [id number] 03/27/2014 03/29/2014 [facility] Bed[facility] Outpatient [id number] Sharan Villar 04/23/2014 04/23/2014 [facility] Outpatient [id number] Sharan Villar 05/23/2014 05/24/2014 [facility] [place] [facility] [id number] Sharan Villar 05/27/2014 05/28/2014 [facility] Outpatient [id number] Sharan Villar 07/11/2014 07/12/2014 [facility] Outpatient [id number] Sharan Villar 10/10/2014 10/11/2014 [facility] Outpatient [id number] Sharan Villar 03/03/2015 03/04/2015 [facility] [place] [facility] [id number] Sharan Villar 05/13/2015 05/14/2015 [facility] Outpatient [id number] Sharan Villar 09/01/2015 09/02/2015 [facility] [place] [facility] [id number] Hallie [place] 04/22/2016 04/23/2016 [facility] [id number] Zoltan Hussein 06/29/2017 06/30/2017 [facility] [id number] [facility] 07/15/2017 07/16/2017 [facility] [place] [facility] [id number] [facility] 07/28/2017 07/29/2017 [facility] [place] [facility] Outpatient [id number] [facility] 09/01/2017 09/02/2017 [facility] Procedures Procedure Code Date Perfomer Comments Source Hysterectomy [id number] [facility] [place] Hysterectomy [id number] [facility] Hysterectomy [id number] [facility] [id number] [facility] DegrootJessee
--- OUTSIDE RECORDS SUMMARY | 2018-02-08 23:48 | XMS REPORT | Summary of Care ---
Author Organization Unknown Address Unknown Phone Unavailable Encounter HQ Caitlynr_belkys([facility]) [id number] Date(s): 12/26/13 - 12/26/13 [facility] Outpatient Imaging - [address] [address]- [place] Discharge Disposition: Home Physician Attending: Freeman Rod MD Reason for Visit 401.9 - HYPERTENSION NO Problem List No data available for this section Allergies, Adverse Reactions, Alerts No data available for this section Medications No data available for this section Medications Administered During Your Visit No data available for this section Immunizations No data available for this section
--- OUTSIDE RECORDS SUMMARY | 2018-02-08 23:48 | XMS REPORT | Summary of Care ---
Author Organization Unknown Address Unknown Phone Unavailable Encounter HQ Anel(JUAN ANTONIO) [id number] Date(s): 07/11/14 - 07/11/[address] Discharge Disposition: Home Physician Attending: Sharan Villar MD Physician_Referring: Sharan Villar MD Vital Signs Most recent to 1 oldest [Reference Range]: Height 157.48 cm (07/11/14 11:49 AM) Blood Pressure 104/65 mmHg [90-140/60-90 mmHg] (07/11/14 11:49 AM) Peripheral Pulse 69 bpm Rate [60-100 bpm] (07/11/14 11:49 AM) Weight 74.205 kg (07/11/14 11:49 AM) Body Mass Index 29.92 m2 (07/11/14 11:49 AM) Problem List Condition Effective Dates Status [...]
--- OUTSIDE RECORDS SUMMARY | 2018-02-08 23:48 | XMS REPORT | Summary of Care ---
Author Organization Unknown Address Unknown Phone Unavailable Encounter ISIDORO Tam([facility] ANTON[facility]) [id number] Date(s): 03/25/14 - 03/25/[address] Discharge Disposition: Home Physician Attending: Sharan Villar MD Physician_Referring: Polo Meza MD Reason for Visit NEW PATIENT/ CIRRHOSIS, HEP C/ REF. DR. 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)(Confirmed) COPD (chronic Active obstructive pulmonary disease)(Confirmed) HTN Active (hypertension)(Confi rmed) Osteopenia(Confirmed Active ) Postnecrotic Active cirrhosis of liver(Confirmed) Allergies, Adverse Reactions, Alerts Substance Reaction Severity Status NKDA Active Medications carvedilol 3.125 mg oral tablet 3.125 mg=1 tab, PO, Q12H, # 60 tab, 0 Refill(s) Start Date: 03/25/14 Status: Ordered cetirizine 10 mg oral tablet 10 mg=1 tab, PO, Daily, # 30 tab, 0 Refill(s) Start Date: 03/25/14 Status: Ordered citalopram 40 mg oral tablet 40 mg=1 tab, PO, Daily, # 30 tab, 0 Refill(s) Start Date: 03/25/14 Status: Ordered milk thistle oral capsule 0 Refill(s) Start Date: 03/25/14 Status: Ordered spironolactone 50 mg oral tablet 50 mg=1 tab, PO, BID, # 60 tab, 0 Refill(s) Start Date: 03/25/14 Status: Ordered Medications Administered During Your Visit No data available for this section Immunizations No data available for this section Procedures Procedure Type Body Site Date of Procedure Related Diagnosis Hysterectomy Social History Social History Type Response Smoking Status Never smoker, Exposure to Tobacco Smoke None, Cigarette Smoking Last 365 Days No, Reg Smoking Cessation Counseling No
--- OUTSIDE RECORDS SUMMARY | 2018-02-08 23:48 | XMS REPORT | Summary of Care ---
Author Author [facility] Organization [facility] Address Unknown Phone Unavailable Encounter ISIDORO Tam(JUAN ANTONIO) [id number] Date(s): 09/01/17 - 09/01/17 [facility] [address] [place] [address]- [phone] Discharge Disposition: Home or Self Care Attending Physician: Zoltan Hussein MD Referring Physician: Zoltan Hussein MD Vital Signs No [...]
--- OUTSIDE RECORDS SUMMARY | 2018-02-08 23:48 | XMS REPORT | Summary of Care ---
Author Author [facility] [place] Organization [facility] [place] Address Unknown Phone Unavailable Encounter ISIDORO Tam(FIN) [id number] Date(s): 07/28/17 - 07/28/17 [facility] Outpatient Imaging - [place] [address] [place] [address]- [phone] Discharge Disposition: Home or Self Care Attending [...]
--- OUTSIDE RECORDS SUMMARY | 2018-02-08 23:48 | XMS REPORT | Summary of Care ---
Author Organization Unknown Address Unknown Phone Unavailable Encounter HQ Love_belkys(FIN) [id number] Date(s): 05/27/14 - 05/27/14 [facility] Outpatient Imaging - [place] [address] [place] [address]- [facility] [phone] Discharge Disposition: Home Physician Attending: Sharan Villar MD Vital Signs No data [...]
[2018-02-09] MEDS ORDERED: ALBUTEROL SULF 0.083% NEB SOLN 3 ML NEB NEB STA (00:21)
[2018-02-09] MEDS ORDERED: IPRATROPIUM BROMIDE 0.02% 2.5 ML NEB NEB ONE (00:30)
[2018-02-09] MEDS ORDERED: METHYLPREDNISOLONE SOD SUCC 125 MG/2ML VIAL IV ONE (00:30)
--- NOTE | 2018-02-09 01:04 | Diagnostic Imaging Report ---
EXAM: CHEST SINGLE (PORTABLE), AP 1 view INDICATION: Shortness of breath COMPARISON: None FINDINGS: LINES/TUBES: None LUNGS: No consolidations or edema. PLEURA: No effusions or pneumothorax. HEART AND MEDIASTINUM: The heart is within normal size limits for technique. Enlarged central pulmonary arteries. BONES AND SOFT TISSUES: No acute findings. IMPRESSION: Enlarged central pulmonary arteries. No pulmonary edema or consolidations. Signed by: Dr. Yoly Rubi M.D. on 02/09/2018 1:00 AM
[2018-02-09 01:09] LABS: BASOPHILS % 0.8 % (0.0-1.0); EOSINOPHILS # (AUTO) 0.1 (0.0-0.4); HEMATOCRIT 38.5 % (34.2-44.1); LYMPHOCYTES # (AUTO) 0.8 (1.0-3.2); LYMPHOCYTES % 15.8 % (18.0-39.1); MEAN CORPUSCULAR HEMOGLOBIN 34.1 pg (28-32); MEAN CORPUSCULAR HGB CONC 33.8 g/dL (31-35); MONOCYTES # (AUTO) 0.3 (0.2-0.8); MONOCYTES % 6.5 % (4.4-11.3); NEUTROPHILS # (AUTO) 3.7 (2.1-6.9); NEUTROPHILS % 74.5 % (38.7-80.0); PLATELET COUNT 63 x10e3/uL (140-360); RED BLOOD COUNT 3.81 x10e6/uL (3.6-5.1); RED CELL DISTRIBUTION WIDTH 13.5 % (11.7-14.4)
[2018-02-09 01:22] LABS: ALBUMIN/GLOBULIN RATIO 1.5 (0.8-2.0); ANION GAP 16.1 mmol/L (8-16); CALCIUM 9.3 mg/dL (8.4-10.2); CREATININE, SERUM 0.93 mg/dL (0.57-1.11); POTASSIUM 4.1 mmol/L (3.5-5.1)
[2018-02-09 01:29] LABS: CREATINE KINASE MB 4.1 ng/mL (0-5.0)
[2018-02-09 02:29] VITALS: BP 120/82
== END 2018-02-09 02:43 | disposition home or self-care (01) ==
LOC: ER 23:45
DX: R06.09 Other forms of dyspnea (principal); R05 Cough; J20.9 Acute bronchitis, unspecified; J44.1 Chronic obstructive pulmonary disease with (acute) exacerbation; I10 Essential (primary) hypertension; K21.9 Gastro-esophageal reflux disease without esophagitis; F32.9 Major depressive disorder, single episode, unspecified; M54.2 Cervicalgia; G89.29 Other chronic pain; Z87.891 Personal history of nicotine dependence
CPT/HCPCS: 36415; 71045; 80053; 82550; 82553; 83880; 84484; 85025; 93005; 94644; 99284; J2930

== ENCOUNTER 2018-03-06 14:07 | Inpatient (IN) | payer MEDICARE ==
[~2018-03-06] VITALS: Ht 157.5 cm; Wt 70.8 kg
--- OUTSIDE RECORDS SUMMARY | 2018-03-06 14:10 | XMS REPORT | Continuity of Care Document ---
Author Author Thong hooks [facility] Interface Address Unknown Phone Unavailable Problems Problem Status Onset Date Classification Date Reported Comments Source R92.8 Active 08/26/2017 [facility] DD-6 MONTH F/U VISIT Active 03/03/2015 [facility] FOLLOW UP Active 01/29/2015 [facility] CIRRHOSIS HEP C Active 11/21/2014 [facility] 571.8 - CHRONIC LIVER D Active 11/13/2014 L[facility] Hooks HEP C Active 07/11/2014 [facility] 379.91 - PAIN IN OR AROU Active 05/27/2014 L[facility]YD Israela HEP C Active 04/25/2014 [facility] FOLLWO UP Active 04/24/2014 [facility] DDC-HEP C VISIT Active 03/25/2014 [facility] BDDC/ ESOPHAGEAL VARICES Active 03/25/2014 [facility] NEW PATIENT/ CIRRHOSIS, HEP C/ REF. Active 02/21/2014 [facility] Cholelithiasis Active Problem 10/13/2014 [facility] [place] COPD (<span ID="[id number]">Confirmed</span>) Active Problem 10/13/2014 [facility] [place] HTN (<span ID="[id number]">Confirmed</span>) Active Problem 10/13/2014 [facility] [place] Postnecrotic cirrhosis of liver Active Problem 10/13/2014 [facility] [place] Compensated cirrhosis related to hepatitis C virus (<span ID="[id number]">Confirmed</span>) Active Problem 07/31/2017 [facility] EDVT, LLOYD Hooks, [facility] [place] Osteopenia Active Problem 07/31/2017 [facility], ED[facility], L[facility]YD Hooks, [facility] [place] Cholelithiasis Active Problem 09/04/2015 LLOYD Hooks,[facility] COPD (<span ID="[id number]">Confirmed</span>) Active Problem 09/04/2015 LLOYD Hooks,[facility] Hepatitis C Resolved Problem 09/04/2015 LLOYD Hooks,[facility] HTN (<span ID="[id number]">Confirmed</span>) Active Problem 09/04/2015 LLOYD Hooks,[facility] Postnecrotic cirrhosis of liver Active Problem 09/04/2015 L[facility] Hooks,[facility] Cholelithiasis Active Problem 07/31/2017 [facility] [place] COPD (<span ID="[id number]">Confirmed</span>) Active Problem 07/31/2017 [facility] [place] Hepatitis C Resolved Problem 07/31/2017 [facility] [place] HTN (<span ID="[id number]">Confirmed</span>) Active Problem 07/31/2017 [facility] [place] Postnecrotic cirrhosis of liver Active Problem 07/31/2017 [facility] [place] Cholelithiasis Active Problem 09/04/2017 [facility] Compensated cirrhosis related to hepatitis C virus (<span ID="[id number]">Confirmed</span>) Active Problem 09/04/2017 [facility], [facility] COPD (<span ID="[id number]">Confirmed</span>) Active Problem 09/04/2017 [facility] Hepatitis C Resolved Problem 09/04/2017 [facility] HTN (<span ID="[id number]">Confirmed</span>) Active Problem 09/04/2017 [facility] Osteopenia Active Problem 09/04/2017 [facility], ED[facility], [facility] Hooks, [place] Postnecrotic cirrhosis of liver Active Problem 09/04/2017 [facility] CIRRHOSIS OF LIVER NOS Active [facility] ROUTINE MEDICAL EXAM Active [facility] MEDICAL SERVICES NOT AVAILABLE IN HOME Active [facility] ENCNTR FOR GENERAL ADULT MEDICAL EXAM W/ Active [facility] Medications Medication Details Route Status Patient Instructions Ordering Provider Order Date Source Denisse See Instructions, 1 tab po daily, 0 Refill(s)Special Instructions: 1 tab po daily Active 10/10/2014 [facility] Famotidine 20 MG Oral Tablet 20 mg=1 tab, PO, QPM, Heartburn, ONLY TAKE NEEDED FOR HEARTBURN., X 30 day, # 30 tab, 2 Refill(s), Pharmacy: [facility] [id number] Instructions: ONLY TAKE NEEDED FOR HEARTBURN. Active 05/23/2014 [facility] Hepatitis B Surface Antigen Vaccine 0.01 MG/ML Injectable Suspension 10 microgram, 1 mL, Route: IM, ONCE, Dosing Weight 77.4, kg, Priority: STAT, Start date: 05/23/14 11:13:00, Stop date: 05/23/14 11:13:00 Inactive 05/23/2014 [facility] milk thistle oral capsule 0 Refill(s) Active 03/25/2014 [facility] carvedilol 3.125 mg oral tablet 3.125 mg=1 tab, PO, Q12H, # 60 tab, 0 Refill(s) Active 03/25/2014 [facility] spironolactone 50 mg oral tablet 50 mg=1 tab, PO, BID, # 60 tab, 0 Refill(s) Active 03/25/2014 [facility] citalopram 40 mg oral tablet 40 mg=1 tab, PO, Daily, # 30 tab, 0 Refill(s) Active 03/25/2014 [facility] cetirizine 10 mg oral tablet 10 mg=1 tab, PO, Daily, # 30 tab, 0 Refill(s) Active 03/25/2014 [facility] Allergies, Adverse Reactions, Alerts Substance Category Reaction [...] dated: 07/28/2017 mammogram and 06/29/2017 mammogram - [facility]. A stereotactic guided biopsy was performed for [...] demonstrate stability.(03/03/2018) This exam was interpreted at [id number] for [facility]. Juvencio valenzuelat/:09/05/2017 14:17:32 Brand Marketing Intern(s): Crystal Champion, [facility] letter sent: Post Bx Results 09/01/2017 - - Read by: Juvencio Patel MD Dictated Date/time: 09/05/17 14:17 Electronically Signed by: Juvencio Patel MD 09/05/17 14:17 FINAL REPORT [facility] Breast Mammo Diag YANI incl CAD OR Breast Mammo Diag YANI incl CAD MA BILATERAL DIGITAL DIAGNOSTIC MAMMOGRAM WITH CAD: 07/28/2017 CLINICAL: Other Abnormal And Inconclusive Findings On Diagnostic Imaging Of Breast/R92.8. Current study was evaluated with a Computer Aided Detection (CAD) system. COMPARISON:Comparison is made to exam dated: 06/29/2017 mammogram - [facility]. TECHNIQUE: Mammographic views were obtained using digital [...] biopsy results. This exam was interpreted at [id number] for Alyson, 15. SUMMARY: These findings were discussed with [...] Diagnostic Imaging. Jus Andujar M.D. rsl/:07/28/2017 11:30:49 Brand Marketing Intern(s): Paola Melton, RT(R)(M), [facility] letter sent: BI-RADS 4/5 Mammogram BI-RADS: 4a Suspicious abnormality - low suspicion for malignancy 07/28/2017 - - Read by: Jus Andujar MD Dictated Date/time: 07/28/17 11:30 Electronically Signed by: Jus Andujar MD 07/28/17 11:30 FINAL REPORT [facility] Shields Brain w/wo contrast MRI Brain w/wo contrast MRI Patient Name: HOLDEN ONEILL : 1950; Age: 66 years y/o Female MR: [id number] Study: Brain w/wo contrast MRI 07/15/2017 8:06 [...] Date/time: 07/15/17 11:11 Electronically Signed by: Jed jN MD 07/15/17 11:15 FINAL REPORT TORRES Shields [...] are recommended. This exam was interpreted at [id number] for TORRES Downs, SL 15. Professional services are provided by the [facility]. Guillaume Casiano M.D. cm/penrad:07/13/2017 09:44:20 Brand Marketing Intern(s): RT Elvis(R)(M), [facility] letter sent: BI-RADS 0 Mammogram BI-RADS: 0 Indeterminate 06/29/2017 - - Read by: Donald Montano MD Dictated Date/time: 07/13/17 09:44 Electronically Signed by: Donald Montano MD 07/13/17 09:44 FINAL REPORT TORRES Shields Chest 2 views DX Chest 2 views DX EXAM: Chest 2 views DX HISTORY: J44.9 Chronic obstructive pulmonary disease, unspecified COMPARISON: 12/28/2013 The heart size is normal and the lungs are clear. There is no pleural effusion or pneumothorax. No gross skeletal abnormality. IMPRESSION: No acute abnormality. 04/22/2016 - - Read by: Eliud Ncihole MD Dictated Date/time: 04/22/16 16:44 Electronically Signed by: Eliud Nichole MD 04/22/16 16:45 FINAL REPORT LLOYD Alyson Liver w Liver vessels Doppler US Liver w Liver vessels Doppler US EXAM: US ABDOMEN COMPLETE WITH DOPPLER DATE: 05/13/2015 11:14 AM DIRECTOR BUSINESS INTELLIGENCE INDICATION: B18.2 Chronic viral hepatitis C COMPARISON: [...] - This report was dictated by a District Loss Prevention Manager/Fellow. I have personally reviewed the images as well as the Resident's interpretation and agree with the findings. Read by: Rishi Shafer MD Resident: Rishi Shafer MD Dictated Date/time: 11/27/14 10:57 Electronically Signed by: Gerardo Rajput MD 11/27/14 14:31 FINAL REPORT [facility] Liver w Liver vessels Doppler US Liver [...] - This report was dictated by a District Loss Prevention Manager/Fellow. I have personally reviewed the images as well as the Resident's interpretation and agree with the findings. Read by: Rishi Shaefr MD Resident: Rishi Shafer MD Dictated Date/time: 11/27/14 10:57 Electronically Signed by: Gerardo Rajput MD 11/27/14 14:31 FINAL REPORT [facility] Vital Signs Vital Sign Value Date Comments Source Weight 70.17 09/01/2015 [facility] BMI Calculated 28.29 09/01/2015 [facility] Systolic (mm Hg) 129 09/01/2015 [facility] Diastolic (mm Hg) 76 09/01/2015 [facility] Temperature Oral (F) 97.5 F 09/01/2015 [facility] Heart Rate 66 09/01/2015 [facility] Height 157.48 cm 09/01/2015 [facility] Systolic (mm Hg) 107 03/03/2015 [facility] Diastolic (mm Hg) 67 03/03/2015 [facility] Height 157.48 cm 03/03/2015 [facility] BMI Calculated 29.53 03/03/2015 [facility] Weight 73.239 03/03/2015 [facility] Height 157.4 cm 10/10/2014 [facility] Weight 73.182 10/10/2014 [facility] BMI Calculated 29.54 10/10/2014 [facility] Heart Rate 67 10/10/2014 [facility] Systolic (mm Hg) 106 10/10/2014 [facility] Diastolic (mm Hg) 65 10/10/2014 [facility] Systolic (mm Hg) 104 07/11/2014 [facility] Diastolic (mm Hg) 65 07/11/2014 [facility] Heart Rate 69 07/11/2014 [facility] Weight 74.205 07/11/2014 [facility] Height 157.48 cm 07/11/2014 [facility] BMI Calculated 29.92 07/11/2014 [facility] Weight 77.4 05/23/2014 [facility] Height 160 cm 05/23/2014 [facility] BMI Calculated 30.23 05/23/2014 [facility] Diastolic (mm Hg) 74 03/25/2014 [facility] Respitory Rate 15 03/25/2014 [facility] Heart Rate 75 03/25/2014 [facility] Systolic (mm Hg) 124 03/25/2014 [facility] Height 157.48 cm 03/25/2014 [facility] Weight 79.5 03/25/2014 [facility] BMI Calculated 32.06 03/25/2014 [facility] Encounters Location Location Details Encounter Type Encounter Number Reason For Visit Attending Provider ADM Date DC Date Status Source [facility] Out[facility] [place] [facility] [id number] Freeman Rod 12/26/2013 12/27/2013 LLOYD Shields [facility] Outpatient Imaging - [place] [facility] [id number] Feliciano Hanks 12/28/2013 12/29/2013 [facility] Outpatient [id number] Polo Bonilla 03/25/2014 03/26/2014 [facility] Phone Message [id number] 03/27/2014 03/29/2014 [facility] Outpatient [id number] Sharan Villar 04/23/2014 04/23/2014 [facility] Outpatient [id number] Sharan Villar 05/23/2014 05/24/2014 [facility] Outpatient Imaging - [place] [facility] [id number] Sharan Villar 05/27/2014 05/28/2014 [facility] Outpatient [id number] Sharan Villar 07/11/2014 07/12/2014 [facility] Outpatient [id number] Sharan Villar 10/10/2014 10/11/2014 [facility] Outpatient [id number] Sharan Villar 03/03/2015 03/04/2015 [facility] Outpatient Imaging [place] Out[facility] Diag Services [id number] Sharan Villar 05/13/2015 05/14/2015 [facility] [id number] Sharan Villar 09/01/2015 09/02/2015 [facility] Outpatient Imaging - [place] [facility] [id number] Hallie Chapman 04/22/2016 04/23/2016 [facility] [place] [facility] Outpatient Imaging - [place] [facility] [id number] Zoltan Hussein 06/29/2017 06/30/2017 [facility] [place] [facility] Outpatient Imaging - [place] [facility] [id number] Zoltan Hussein 07/15/2017 07/16/2017 [facility] [place] [facility] Outpatient Imaging - [place] [facility] [id number] Zoltan Hussein 07/28/2017 07/29/2017 [facility] [place] [facility] Outpatient [id number] Zoltan Hussein 09/01/2017 09/02/2017 [facility] Procedures Procedure Code Date Perfomer Comments Source Hysterectomy [id number] [facility] Hysterectomy [id number] LLOYD Jessee Hysterectomy [id number] [facility] [place] Hysterectomy [id number] [facility]
--- OUTSIDE RECORDS SUMMARY | 2018-03-06 14:10 | XMS REPORT ---
Author Author [facility] Address Unknown Phone Unavailable Care Team Providers Care Tin Cutter Name Role Phone Brooks VÁSQUEZ Unavailable Unavailable Problems This patient has no known problems. Allergies, Adverse Reactions, Alerts This patient has no known allergies or adverse reactions. Medications This patient has no known medications. Results Test Description Test Time Test Comments Text Results Atomic Results Result Comments CHEST SINGLE (PORTABLE) 2018-02-09 01:00:00 [place] [address] Patient Name: HOLDEN ONEILL I MR #: [id number] : 1950 Age/Sex: 67/F Req #: [id number] [facility] Physician: Ordered by: BELA VÁQSUEZ MD Report #: [id number] Location: ER Room/Bed: Procedure: [id number] DX/CHEST SINGLE (PORTABLE) Exam Date: 02/09/18 Exam Time: 0050 REPORT STATUS: Signed EXAM: CHEST SINGLE (PORTABLE), AP 1 view INDICATION: Shortness of breath COMPARISON: None FINDINGS: LINES/TUBES: None LUNGS: No consolidations or edema. PLEURA: No effusions or pneumothorax. HEART AND MEDIASTINUM: The heart is within normal size limits for technique. Enlarged central pulmonary arteries. BONES AND SOFT TISSUES: No acute findings. IMPRESSION: Enlarged central pulmonary arteries. No pulmona ry edema or consolidations. Signed by: Dr. Ganga Knox M.D. on 02/09/2018 1:00 AM Dictated By: GANGA KNOX MD Transcribed By: BELLE on COPY TO: BELA VÁSQUEZ MD
--- OUTSIDE RECORDS SUMMARY | 2018-03-06 14:10 | XMS REPORT | Clinical Summary ---
Author Author [employer] Organization [employer] Address Unknown Phone Unavailable Care Team Providers Care Wind Energy Technician Name Role Phone Asked, No Pcp PCP [...] 05/23/2017 Pre-Admit Pre-Admission Testing Testing Appointment after 03/05/2017 Family History Medical History Relation Name Comments [...] CANCER SCREENING 11/09/2001 COLON CANCER SCREENING 11/09/2001 SHINGLES VACCINES (1 of 11/09/2001 2) PNEUMOCOCCAL 11/09/2016 POLYSACCHARIDE VACCINE AGE 65 AND OVER PNEUMOCOCCAL-13 11/09/2016 INFLUENZA VACCINE 10/12/2017 Procedures Comments Procedure Name Priority Date/Time Associated Diagnosis SURGICAL PATHOLOGY Routine 05/27/2017 REQUEST 2:47 PM CDT [place] CHOLANGIOGRAM Routine 05/27/2017 INTRAOPERATIVE 12:05 PM CDT [place] AN ELECTIVE Routine 05/27/2017 ENDOTRACHEAL AIRWAY 10:51 [...] 05/23/2017 Preoperative testing 2:36 PM CDT after 03/05/2017 Results * Surgical pathology request (05/27/2017 2:47 PM CDT) [facility] [place] OF PATHOLOGY AND GENOMIC MEDICINE Surgical pathology report See link below for PDF Lab [facility] [place] DE[place] OF Report PATHOLOGY AND GENOMIC MEDICINE Result status This is Final Report to [facility] [place] DEPARTMENT OF [id number] PATHOLOGY AND GENOMIC MEDICINE Performing Organization Address City/State/Zipcode Phone Number [facility] [place] OF [address] [place] [address] PATHOLOGY AND GENOMIC MEDICINE * [place] Cholangiogram [...] duodenum. IMPRESSION: No evidence of retained stones. [id number] . Procedure Note Interface, Radiology Results Incoming [...] duodenum. IMPRESSION: No evidence of retained stones. [id number] . Performing Organization Address City/State/[facility] [place] [facility] Cent[facility]ode Phone Number [facility] [address] [place] [address] * XR Chest 2 Vw (05/23/2017 4:03 [...] the chest appear be within normal limits. [facility]-[id number] Procedure Note Interface, Radiology Results Incoming - [...] the chest appear be within normal limits. [facility]-[id number] Performing Organization Address City/[facility]/Zipcode Phone Number [facility] [address] [place] [address] * Estimated GFR (05/23/2017 3:40 PM CDT) GFR Non Af Amer 84 mL/min/1.73 m2 [facility] [place] OF PATHOLOGY AND GENOMIC MEDICINE GFR Af Amer >90 mL/min/1.73 m2 [facility] [place] DE[place] OF Comment: PATHOLOGY AND Chronic kidney [...] specimen Performing Organization Address City/State/Zipcode Phone Number [facility] [place] [address] [place] [address] PATHOLOGY AND GENOMIC MEDICINE * CBC with platelet and differential (05/23/2017 3:40 PM CDT) WBC 5.8 4.2 - 11.0 k/uL [facility] [place] OF PATHOLOGY AND GENOMIC MEDICINE RBC 4.18 4.04 - 5.86 m/uL [facility] [place] OF PATHOLOGY AND GENOMIC MEDICINE HGB 14.4 11.5 - 15.3 g/dL [facility] [place] OF PATHOLOGY AND GENOMIC MEDICINE HCT 42.1 34.0 - 45.0 % [facility] [place] OF PATHOLOGY AND GENOMIC MEDICINE MCV 100.7 (H) 80.0 - 98.0 fL [facility] [place] OF PATHOLOGY AND GENOMIC MEDICINE MCH 34.4 (H) 27.0 - 34.0 pg [facility] [place] OF PATHOLOGY AND GENOMIC MEDICINE MCHC 34.2 31.5 - 36.5 g/dL [facility] [place] OF PATHOLOGY AND GENOMIC MEDICINE RDW - SD 48.7 37.0 - 51.[address] [facility] OF PATHOLOGY AND GENOMIC MEDICINE MPV 12.4 (H) 7.4 - 10.[address] [facility] OF PATHOLOGY AND GENOMIC MEDICINE Platelet count 53 (L) 150 - 400 k/uL [facility] [place] PATHOLOGY AND GENOMIC MEDICINE Nucleated RBC 0.00 /100 WBC [facility] [place] OF PATHOLOGY AND GENOMIC MEDICINE Neutrophils 80.6 (H) 36.0 - 66.0 % [facility] [place] PATHOLOGY AND GENOMIC MEDICINE Lymphocytes 11.6 (L) 24.0 - 44.0 % [facility] [place] OF PATHOLOGY AND GENOMIC MEDICINE Monocytes 4.9 0.0 - 6.0 % [facility] [place] OF PATHOLOGY AND GENOMIC MEDICINE Eosinophils 2.1 0.0 - 6.0 % [facility] PATHOLOGY AND GENOMIC MEDICINE Basophils 0.3 0.0 - 1.2 % [facility] PATHOLOGY AND GENOMIC MEDICINE Immature granulocytes 0.5 0.0 - 1.0 % [facility] [place] OF PATHOLOGY AND GENOMIC MEDICINE Specimen Blood Performing Organization Address City/State/Zipcode Phone Number [place] [phone] [place] [address] PATHOLOGY AND [employer] MEDICINE * Comprehensive metabolic panel (05/23/2017 3:40 PM CDT) Sodium 141 135 - 150 mEq/L [facility] [place] OF PATHOLOGY AND GENOMIC MEDICINE Potassium 3.7 3.5 - 5.0 mEq/L [facility] [place] DE[place]MENT OF PATHOLOGY AND GENOMIC MEDICINE Chloride 105 100 - 109 mEq/L [facility] [place] DE[place]MENT OF PATHOLOGY AND GENOMIC MEDICINE CO2 29 24 - 32 mmol/L [facility] [place] [facility]MENT OF PATHOLOGY AND GENOMIC MEDICINE Anion gap 7 7 - 15 mEq/L [facility] [place] DE[place] OF Comment: PATHOLOGY AND Starting from June [facility] , anion gap calculation no longer incorporates potassium. Please note the change. BUN 19 (H) 7 - 18 mg/dL [facility] [place] DE[place]MENT OF PATHOLOGY AND GENOMIC MEDICINE Creatinine 0.7 (L) 0.8 - 1.5 mg/dL [facility] [place]MENT OF PATHOLOGY AND GENOMIC MEDICINE Glucose 86 65 - 100 mg/dL [facility] [place] DE[place]MENT OF PATHOLOGY AND GENOMIC MEDICINE Calcium 8.7 8.6 - 10.7 mg/dL [facility] [place] OF PATHOLOGY AND GENOMIC MEDICINE Protein 7.3 6.3 - 8.2 g/dL [facility] [place] OF PATHOLOGY AND GENOMIC MEDICINE Albumin 3.5 3.2 - 5.0 g/dL [facility] [place] OF PATHOLOGY AND GENOMIC MEDICINE A/G ratio 0.9 0.7 - 3.8 [facility] [place] DE[place]MENT OF PATHOLOGY AND GENOMIC MEDICINE Alkaline phosphatase 71 30 - 120 U/L [facility] [place]MENT OF PATHOLOGY AND GENOMIC MEDICINE AST 31 15 - 37 U/L [facility] [place] DE[place]MENT OF PATHOLOGY AND GENOMIC MEDICINE ALT 24 (L) 30 - 65 U/L [facility] [place] DE[place]MENT OF PATHOLOGY AND GENOMIC MEDICINE Total bilirubin 1.2 0.2 - 1.2 mg/dL [facility] [place] OF PATHOLOGY AND GENOMIC MEDICINE Specimen Plasma specimen Performing Organization Address City/[facility]/[place] [facility] Centercode Phone Number [address] [address] PATHOLOGY AND GENOMIC MEDICINE * ECG Pre/Post Op (05/23/2017 2:36 PM CDT) Ventricular rate 73 [facility] Atrial rate 73 [facility] WA interval 136 [facility] QRSD interval 84 [facility] QT interval 402 [facility] QTC interval 442 [facility] P axis 1 26 [facility] QRS axis 1 10 [facility] T wave axis 0 [facility] EKG impression Normal sinus rhythm-ST & T [facility] wave abnormality, consider anterolateral ischemia-Prolonged QT-Abnormal ECG-No previous ECGs available- Performing Organization Address City/State/[place] [facility] Centercode Phone Number [facility] MUSE [address] [place] [address] after 03/05/2017 Insurance Payer Benefit Subscriber ID Type Phone Address Plan / Group HUMANA MEDICARE HUMANA xxxxxxxxx PPO MEDICARE PPO/PFFS/E [facility] Advance Directives Patient has advance care planning documents on file. For more information, zacarias palumbo contact: Luis Morgan [address] [place] [address]
[2018-03-06] MEDS ORDERED: MORPHINE SULFATE INJ 4 MG/ML INJ IV STA (14:49)
[2018-03-06] MEDS ORDERED: ONDANSETRON HCL INJ 2 MG/ML VIAL IV STA (14:49)
[2018-03-06] MEDS ORDERED: SODIUM CHLORIDE 0.9% 1000ML 1,000 ML IV STA (14:49)
[2018-03-06] MEDS ORDERED: VANCOMYCIN 1GM/NS 250 ML 250 ML IV ONE (15:00)
[2018-03-06 15:04] LABS: BASOPHILS % 0.8 % (0.0-1.0); EOSINOPHILS # (AUTO) 0.1 (0.0-0.4); EOSINOPHILS % 2.3 % (0.0-6.0); HEMATOCRIT 41.2 % (34.2-44.1); HEMOGLOBIN 13.9 g/dL (12.0-16.0); LYMPHOCYTES # (AUTO) 1.2 (1.0-3.2); LYMPHOCYTES % 23.8 % (18.0-39.1); MEAN CORPUSCULAR HEMOGLOBIN 34.2 pg (28-32); MEAN CORPUSCULAR HGB CONC 33.7 g/dL (31-35); MEAN CORPUSCULAR VOLUME 101.2 fL (81-99); MONOCYTES # (AUTO) 0.6 (0.2-0.8); MONOCYTES % 10.7 % (4.4-11.3); NEUTROPHILS # (AUTO) 3.2 (2.1-6.9); RED BLOOD COUNT 4.07 x10e6/uL (3.6-5.1); RED CELL DISTRIBUTION WIDTH 15.2 % (11.7-14.4)
[2018-03-06 15:05] LABS: PLATELET COUNT 72 x10e3/uL (140-360)
[2018-03-06 15:20] LABS: ALANINE AMINOTRANSFERASE 20 IU/L (0-55); ALBUMIN 4.1 g/dL (3.5-5.0); ALBUMIN/GLOBULIN RATIO 1.5 (0.8-2.0); ALKALINE PHOSPHATASE 52 IU/L (40-150); ANION GAP 17.9 mmol/L (8-16); BLOOD UREA NITROGEN 21 mg/dL (7-26); BUN/CREATININE RATIO 25 (6-25); CALCIUM 9.3 mg/dL (8.4-10.2); CARBON DIOXIDE 28 mmol/L (22-29); CHLORIDE 94 mmol/L (98-107); CREATININE, SERUM 0.84 mg/dL (0.57-1.11); EST GLOMERULAR FILTRATION RATE > 60 ML/MIN (60-); GLUCOSE 94 mg/dL (74-118); SODIUM 137 mmol/L (136-145)
[2018-03-06 15:23] LABS: POTASSIUM 2.9 mmol/L (3.5-5.1)
[2018-03-06] MEDS ORDERED: POTASSIUM CHLORIDE 20 MEQ TAB CR PO STA (15:23)
[2018-03-06] MEDS ORDERED: POTASSIUM CHLORIDE 10MEQ/100ML 100 ML IV ONE (15:30)
--- NOTE | 2018-03-06 15:40 | Diagnostic Imaging Report ---
FOOT LEFT COMPLETE - 3 views . HISTORY: Pain. COMPARISON: None available. FINDINGS: Bones: No acute displaced fracture. Osseous alignment is within normal limits. Joints: Minimal degenerative changes of DIP joints and of the first metatarsophalangeal joint. Soft tissues: Soft tissue swelling in the dorsum of the forefoot. IMPRESSION: No acute osseous abnormality. If clinical concern for osteomyelitis remains, consider further evaluation with MRI of foot. Signed by: Dr. Lisbeth Cancino M.D. on 03/06/2018 3:37 PM
--- NOTE | 2018-03-06 16:06 | NUR ---
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
[2018-03-06] MEDS ORDERED: SPIRONOLACTONE50 MG PO (16:17)
[2018-03-06] MEDS ORDERED: ARICEPT5 MG PO (16:17)
[2018-03-06] MEDS ORDERED: OMEPRAZOLE40 MG PO (16:17)
[2018-03-06] MEDS ORDERED: FUROSEMIDE40 MG PO (16:17)
[2018-03-06] MEDS ORDERED: CARVEDILOL3.125 MG PO (16:25)
[2018-03-06] MEDS ORDERED: CYMBALTA30 MG PO (16:25)
--- NOTE | 2018-03-06 17:00 | NUR ---
REPORT TO IRMA Fabian
--- NOTE | 2018-03-06 17:00 | NUR ---
ASSUMED CARE AT THIS TIME. PATIENT AWAKE AND ALERT LAYING IN BED. RESP EVEN AND UNLABORED. SKIN WARM AND DRY. NO SIGNS OF ACUTE DISTRESS NOTED AT THIS TIME. DENIES ANY C/O AT THIS TIME.
--- NOTE | 2018-03-06 18:48 | NUR ---
VERBAL REPORT GIVEN TO AJ SANCHEZ.
[2018-03-06] MEDS ORDERED: VANCOMYCIN 1GM/NS 250 ML 250 ML IV SCH (19:00)
--- NOTE | 2018-03-06 21:00 | NUR ---
PT SATS 91% ON RA, PLACED ON 2L NC SATS INCREASED TO 98%. WILL CONTINUE TO MONITOR
[2018-03-06] MEDS ORDERED: CEFEPIME 1GM/NS 0.9% 50 ML 50 ML IV ONE (21:32)
--- OUTSIDE RECORDS SUMMARY | 2018-03-06 21:57 | XMS REPORT | Clinical Summary ---
Author Author [employer] [facility] Address Unknown Phone Unavailable Care Team Providers Care Lifestyle Consultant Name Role Phone Asked, No Pcp PCP [...] CHOLANGIOGRAM Routine 05/27/2017 INTRAOPERATIVE 12:05 PM CDT [place] AN ELECTIVE Routine 05/27/2017 ENDOTRACHEAL AIRWAY 10:51 [...] Surgical pathology request (05/27/2017 2:47 PM CDT) [facility] DEPARTMENT OF PATHOLOGY AND GENOMIC MEDICINE Surgical pathology report See link below for PDF Lab [facility] DEPARTMENT OF Report PATHOLOGY AND GENOMIC MEDICINE Result status This is Final Report to [facility] DEPARTMENT OF [id number] PATHOLOGY AND GENOMIC MEDICINE Performing Organization Address City/State/Zipcode Phone Number [facility] DEPARTMENT OF [address] [place] [address] PATHOLOGY AND GENOMIC MEDICINE * [place] Cholangiogram [...] duodenum. IMPRESSION: No evidence of retained stones. [id number] . Procedure Note Interface, Radiology Results Incoming [...] duodenum. IMPRESSION: No evidence of retained stones. [id number] . Performing Organization Address City/State/[facility] Centerbcode Phone Number [facility] [address] [place] [address] * XR Chest 2 Vw (05/23/2017 4:03 [...] the chest appear be within normal limits. [facility]-[id number] Procedure Note Interface, Radiology Results Incoming - [...] the chest appear be within normal limits. [facility]-[id number] Performing Organization Address City/[facility]/Zipcode Phone Number [facility] [address] [place] [address] * Estimated GFR (05/23/2017 3:40 PM CDT) GFR Non Af Amer 84 mL/min/1.73 m2 [facility] DEPARTMENT OF PATHOLOGY AND GENOMIC MEDICINE GFR Af Amer >90 mL/min/1.73 m2 [facility] DEPARTMENT OF Comment: PATHOLOGY AND Chronic kidney [...] specimen Performing Organization Address City/State/Zipcode Phone Number [facility] DEPARTMENT [place] [address] [place] [address] PATHOLOGY AND GENOMIC MEDICINE * CBC with platelet and differential (05/23/2017 3:40 PM CDT) WBC 5.8 4.2 - 11.0 k/uL [facility] DEPARTMENT OF PATHOLOGY AND GENOMIC MEDICINE RBC 4.18 4.04 - 5.86 m/uL [facility] DEPARTMENT OF PATHOLOGY AND GENOMIC MEDICINE HGB 14.4 11.5 - 15.3 g/dL [facility] DEPARTMENT OF PATHOLOGY AND GENOMIC MEDICINE HCT 42.1 34.0 - 45.0 % [facility] DEPARTMENT OF PATHOLOGY AND GENOMIC MEDICINE MCV 100.7 (H) 80.0 - 98.0 fL [facility] DEPARTMENT OF PATHOLOGY AND GENOMIC MEDICINE MCH 34.4 (H) 27.0 - 34.0 pg [facility] DEPARTMENT OF PATHOLOGY AND GENOMIC MEDICINE MCHC 34.2 31.5 - 36.5 g/dL [facility] DEPARTMENT OF PATHOLOGY AND GENOMIC MEDICINE RDW - SD 48.7 37.0 - 51.0 fL [facility] OF PATHOLOGY AND GENOMIC MEDICINE MPV 12.4 (H) 7.4 - 10.4 fL [facility] OF PATHOLOGY AND GENOMIC MEDICINE Platelet count 53 (L) 150 - 400 k/uL [facility] DEPARTMENT PATHOLOGY AND GENOMIC MEDICINE Nucleated RBC 0.00 /100 WBC [facility] DEPARTMENT OF PATHOLOGY AND GENOMIC MEDICINE Neutrophils 80.6 (H) 36.0 - 66.0 % [facility] DEPARTMENT PATHOLOGY AND GENOMIC MEDICINE Lymphocytes 11.6 (L) 24.0 - 44.0 % [facility] DEPARTMENT OF PATHOLOGY AND GENOMIC MEDICINE Monocytes 4.9 0.0 - 6.0 % [facility] DEPARTMENT OF PATHOLOGY AND GENOMIC MEDICINE Eosinophils 2.1 0.0 - 6.0 % [facility] PATHOLOGY AND GENOMIC MEDICINE Basophils 0.3 0.0 - 1.2 % [facility] PATHOLOGY AND GENOMIC MEDICINE Immature granulocytes 0.5 0.0 - 1.0 % [facility] DEPARTMENT OF PATHOLOGY AND GENOMIC MEDICINE Specimen Blood Performing Organization Address City/State/Zipcode Phone Number [place] [phone] [place] [address] PATHOLOGY AND [employer] MEDICINE * Comprehensive metabolic panel (05/23/2017 3:40 PM CDT) Sodium 141 135 - 150 mEq/L [facility] DEPARTMENT OF PATHOLOGY AND GENOMIC MEDICINE Potassium 3.7 3.5 - 5.0 mEq/L [facility] DEPARTMENT OF PATHOLOGY AND GENOMIC MEDICINE Chloride 105 100 - 109 mEq/L [facility] DEPARTMENT OF PATHOLOGY AND GENOMIC MEDICINE CO2 29 24 - 32 mmol/L [facility] DEPARTMENT OF PATHOLOGY AND GENOMIC MEDICINE Anion gap 7 7 - 15 mEq/L [facility] DEPARTMENT OF Comment: PATHOLOGY AND Starting from June [facility] , anion gap calculation no longer incorporates potassium. Please note the change. BUN 19 (H) 7 - 18 mg/dL [facility] DEPARTMENT OF PATHOLOGY AND GENOMIC MEDICINE Creatinine 0.7 (L) 0.8 - 1.5 mg/dL [facility] DEPARTMENT OF PATHOLOGY AND GENOMIC MEDICINE Glucose 86 65 - 100 mg/dL [facility] DEPARTMENT OF PATHOLOGY AND GENOMIC MEDICINE Calcium 8.7 8.6 - 10.7 mg/dL [facility] DEPARTMENT OF PATHOLOGY AND GENOMIC MEDICINE Protein 7.3 6.3 - 8.2 g/dL [facility] DEPARTMENT OF PATHOLOGY AND GENOMIC MEDICINE Albumin 3.5 3.2 - 5.0 g/dL [facility] DEPARTMENT OF PATHOLOGY AND GENOMIC MEDICINE A/G ratio 0.9 0.7 - 3.8 [facility] DEPARTMENT OF PATHOLOGY AND GENOMIC MEDICINE Alkaline phosphatase 71 30 - 120 U/L [facility] DEPARTMENT OF PATHOLOGY AND GENOMIC MEDICINE AST 31 15 - 37 U/L [facility] DEPARTMENT OF PATHOLOGY AND GENOMIC MEDICINE ALT 24 (L) 30 - 65 U/L [facility] DEPARTMENT OF PATHOLOGY AND GENOMIC MEDICINE Total bilirubin 1.2 0.2 - 1.2 mg/dL [facility] DEPARTMENT OF PATHOLOGY AND GENOMIC MEDICINE Specimen Plasma specimen Performing Organization Address City/[facility] Centerbcode Phone Number [address] [address] PATHOLOGY AND GENOMIC MEDICINE * ECG Pre/Post Op (05/23/2017 2:36 PM CDT) Ventricular rate 73 [facility] MUSE Atrial rate 73 [facility] MA interval 136 [facility] QRSD interval 84 [facility] QT interval 402 [facility] QTC interval 442 [facility] P axis 1 26 [facility] QRS axis 1 10 [facility] T wave axis 0 [facility] EKG impression Normal sinus rhythm-ST & T [facility] wave abnormality, consider anterolateral ischemia-Prolonged QT-Abnormal ECG-No previous ECGs available- Performing Organization Address City/State/[facility] Centerbcode Phone Number [facility] MUSE [address] [place] [address] after 03/05/2017 Insurance Payer Benefit Subscriber ID Type Phone Address Plan / Group HUMANA MEDICARE HUMANA xxxxxxxxx PPO MEDICARE PPO/PFFS/E [facility] Advance Directives Patient has advance care planning documents on file. For more information, zacarias palumbo contact: Luis Morgan [address] [facility] [place] [address]
[2018-03-06] MEDS ORDERED: MORPHINE SULFATE INJ 4 MG/ML INJ IV PRN (22:00)
[2018-03-06] MEDS ORDERED: CEFEPIME HCL 1 GM VIAL IV SCH (22:00)
[2018-03-06] MEDS ORDERED: ONDANSETRON HCL INJ 2 MG/ML VIAL IV PRN (22:00)
[2018-03-06 22:25] VITALS: BP 118/76
[2018-03-06 22:37] VITALS: BP 118/76
[2018-03-07] VITALS (8 sets, daily range): BP systolic 98–120; BP diastolic 63–88
[2018-03-07 05:56] LABS: BASOPHILS % 0.9 % (0.0-1.0); EOSINOPHILS # (AUTO) 0.2 (0.0-0.4); EOSINOPHILS % 3.4 % (0.0-6.0); HEMATOCRIT 40.8 % (34.2-44.1); HEMOGLOBIN 13.4 g/dL (12.0-16.0); LYMPHOCYTES # (AUTO) 1.1 (1.0-3.2); LYMPHOCYTES % 22.8 % (18.0-39.1); MEAN CORPUSCULAR HEMOGLOBIN 34.1 pg (28-32); MEAN CORPUSCULAR HGB CONC 32.8 g/dL (31-35); MEAN CORPUSCULAR VOLUME 103.8 fL (81-99); MONOCYTES # (AUTO) 0.5 (0.2-0.8); MONOCYTES % 11.1 % (4.4-11.3); NEUTROPHILS # (AUTO) 2.9 (2.1-6.9); NEUTROPHILS % 61.4 % (38.7-80.0); PLATELET COUNT 67 x10e3/uL (140-360); RED BLOOD COUNT 3.93 x10e6/uL (3.6-5.1); RED CELL DISTRIBUTION WIDTH 15.7 % (11.7-14.4)
[2018-03-07 06:29] LABS: ALANINE AMINOTRANSFERASE 17 IU/L (0-55); ALBUMIN 3.6 g/dL (3.5-5.0); ALBUMIN/GLOBULIN RATIO 1.6 (0.8-2.0); ALKALINE PHOSPHATASE 45 IU/L (40-150); ANION GAP 16.6 mmol/L (8-16); BLOOD UREA NITROGEN 22 mg/dL (7-26); BUN/CREATININE RATIO 28 (6-25); CALCIUM 8.5 mg/dL (8.4-10.2); CARBON DIOXIDE 26 mmol/L (22-29); CHLORIDE 98 mmol/L (98-107); EST GLOMERULAR FILTRATION RATE > 60 ML/MIN (60-); GLUCOSE 111 mg/dL (74-118); POTASSIUM 3.6 mmol/L (3.5-5.1); SODIUM 137 mmol/L (136-145)
[2018-03-07] MEDS ORDERED: NON-FORMULARY MEDICATION (Spironolactone 50 MG) PO SCH (09:00)
[2018-03-07] MEDS ORDERED: FUROSEMIDE 40 MG TAB PO SCH (09:00)
[2018-03-07] MEDS ORDERED: CEFEPIME HCL 1 GM VIAL IV SCH (09:00)
[2018-03-07] MEDS: DULOXETINE HCL 30 MG DELAYED RELEASE PO SCH (09:10)
[2018-03-07] MEDS: CARVEDILOL 3.125 MG TAB PO SCH ×2 (09:10→17:00)
[2018-03-07] MEDS: PANTOPRAZOLE SOD 40 MG TABEC PO SCH (09:10)
[2018-03-07] MEDS: SPIRONOLACTONE 25 MG TAB PO SCH (09:10)
--- NOTE | 2018-03-07 11:00 | NUR ---
SPOKE TO DR.MCKINNEY GONZALEZ TO SEE PATIENT TORREY.
[2018-03-07] MEDS ORDERED: KCL 20MEQ/.9 SOD CHL 1,000 ML IV ONE (12:45)
[2018-03-07] MEDS: POTASSIUM CHLORIDE 20 MEQ TAB CR PO SCH (12:46)
--- NOTE | 2018-03-07 15:58 | History and Physical ---
LOCATION: Room #179. CHIEF PRESENTING COMPLAINT: Intense right ankle and foot pain with swelling and redness and got worsened for one day. HISTORY OF PRESENT ILLNESS: A 67-year-old female who was admitted from ER. The patient was brought to ER by her from home last night. Patient does state she had a small pimple in the dorsum of her right foot more than one week. She was seen by her PCP, Dr. Zoltan Hussein at his office. The patient was treated with some oral antibiotic, but her symptom did not improve. She called office of Dr. Hussein on Tuesday, but could not get an appointment at that time. Her foot get more red with swelling along with blackening of the area about dorsum of the foot. The patient told that the pain got injectable yesterday. At that time, her decided to bring her to the ER. The patient denied any fever at home. She told that the foot area got gradually swollen and erythematous without any discharge. Patient denied any other complains. She is now lying in bed and feeling better today. She was ambulatory at home prior to this foot infection as per her statement. REVIEW OF SYSTEMS CONSTITUTIONAL: No fever, chills, or rigor. ENT: No nasal congestion. No sore throat. No visual disturbance. CARDIOVASCULAR: No chest pain or shortness of breath. No palpitation. PULMONARY: No cough. No hemoptysis. GI: No abdominal pain, nausea, vomiting, . : No dysuria. No hematuria. MUSCULOSKELETAL: Significant for radicular right ankle and foot pain as per HPI. No other joint pain. No other skin rash. No swelling or pain. NEUROLOGIC: No loss of consciousness, seizure, or headache. PAST MEDICAL HISTORY 1. Hypertension. 2. COPD. 3. Anxiety. 4. Depression. 5. No history of diabetes mellitus, CAD, stroke, or cancer as patient's statement. 6. History of hepatitis C with cirrhosis status post treatment as per patient's statement. PAST SURGICAL HISTORY: The patient had hysterectomy, liver biopsy, and cholecystectomy as per her statement. ALLERGIES: NO KNOWN MEDICATION ALLERGY. HOME MEDICATIONS: As per med reconciled sheet. SOCIAL HISTORY: The patient lives at home with her . She is not working. HABITS: The patient quit smoking in the remote past. Denies drinking alcohol or any substance abuse at the present time. FAMILY HISTORY: Positive for hypertension. PHYSICAL EXAMINATION VITAL SIGNS: At presentation, BP 120/86, pulse 89, temperature 98.7, respirations 20, SpO2 94 % on room air. GENERAL: Alert, lying in bed without any distress now. HEENT: No pallor. No icterus. Pupils are equally reacting. Oral mucosa moist. NECK: No JVD. No carotid bruits. No lymphadenopathy. No thyromegaly. CARDIOVASCULAR: S1, S2 regular. No murmur. LUNGS: Clear to auscultation. ABDOMEN: Soft, nontender. No palpable mass. Bowels sounds active in all quadrants. EXTREMITIES: Right ankle 1+ pitting edema, Left ankle, no edema and no cyanosis. No clubbing. NEUROLOGIC: Motor grossly equal on both sides. MUSCULOSKELETAL: Examination of the right foot dorsum close to ankle area hyperpigmented area. No discharge with surrounding erythema and tenderness. No crepitus. No fluctuation noted. Movements of the joints intact. LABORATORY DATA: CBC; White blood cell count 5.13, hemoglobin 13, hematocrit 41, platelet count 72,000. MCV 101. Neutrophil 62, lymphocyte 23. Chemistry panel; sodium 137, potassium 2.9 it came up to 3.6 today, chloride 94, CO2 of 28, anion gap 15, BUN 21, creatinine 0.84, glucose 94. Lactic acid 23.1 last night, calcium 9.3, total bilirubin 3.0. AST 29, ALT 20, alkaline phosphatase 52, total protein 6.8, albumin 2.41, globulin 2.7. MICROBIOLOGY: Urine and blood culture in progress. RADIOLOGICAL DATA: X-ray right foot, no acute osseous abnormality. Minimal degenerative changes of the DIP joints and first metatarsophalangeal joint. Soft tissue swelling present dorsum of the forefoot. EKG, normal sinus rhythm at the rate of 75 beats per minute, incomplete right bundle-branch block. No significant ST-T changes. ASSESSMENT 1. Injectable pain right foot and ankle due to cellulitis with small ulceration on the dorsum of the right foot. The patient failed treatment as an outpatient with oral antibiotic. The patient is started on IV cefepime and vancomycin from ER. We would continue antibiotic. Podiatry consult is requested, will follow his recommendations for need of any intervention. Chest x-ray is negative for any osteomyelitis. The patient is afebrile. We will follow the blood culture report. 2. Thrombocytopenia. The patient has still hepatitis C cirrhosis. She is status post treatment for hepatitis C with interferon in the past as per her statement. She had also liver biopsy in the past as per her statement. We would monitor for now. The patient is not actively bleeding. We would hold any anticoagulation unless needed. 3. Right lower leg and ankle swelling. We would request a Venous Doppler. 4. Hypertension. Continue her regular medication. 5. Anxiety depression. Continue patient's regular medication. 6. COPD by history. The patient does not have any shortness of breath, though to keep on nebulizer p.r.n. 7. Discharge plan. We would discharge patient with oral antibiotic once clear by the network pricing consultant. PLAN 1. Continue current antibiotics. 2. Croft-culture patient. 3. Infectious disease consultation. 4. Continue immunosuppressive therapy for renal transplant. Job#: [id number] [place]
[2018-03-07] MEDS: CEFEPIME 1GM/NS 0.9% 50 ML 50 ML IV SCH (16:21)
[2018-03-07] MEDS: FUROSEMIDE INJ 10 MG/ML 2 ML VIAL IV SCH (18:13)
[2018-03-07] MEDS: DONEPEZIL HCL 5 MG TAB PO SCH (20:03)
--- NOTE | 2018-03-07 21:42 | NUR ---
Elevated patient's left leg to help bring down some swelling. Patient states it only hurts when she attempts to ambulate and does not need pain medication at this time.
[2018-03-08] MEDS: CEFEPIME 1GM/NS 0.9% 50 ML 50 ML IV SCH ×3 (00:01→18:00)
[2018-03-08 04:32] VITALS: BP 108/78
[2018-03-08 05:19] LABS: BASOPHILS % 0.6 % (0.0-1.0); EOSINOPHILS # (AUTO) 0.1 (0.0-0.4); EOSINOPHILS % 2.5 % (0.0-6.0); HEMATOCRIT 38.7 % (34.2-44.1); HEMOGLOBIN 12.7 g/dL (12.0-16.0); LYMPHOCYTES # (AUTO) 1.2 (1.0-3.2); LYMPHOCYTES % 22.8 % (18.0-39.1); MEAN CORPUSCULAR HEMOGLOBIN 33.9 pg (28-32); MEAN CORPUSCULAR HGB CONC 32.8 g/dL (31-35); MEAN CORPUSCULAR VOLUME 103.2 fL (81-99); MONOCYTES # (AUTO) 0.6 (0.2-0.8); MONOCYTES % 12.3 % (4.4-11.3); NEUTROPHILS # (AUTO) 3.2 (2.1-6.9); NEUTROPHILS % 61.4 % (38.7-80.0); PLATELET COUNT 60 x10e3/uL (140-360); RED BLOOD COUNT 3.75 x10e6/uL (3.6-5.1); RED CELL DISTRIBUTION WIDTH 15.7 % (11.7-14.4)
[2018-03-08 05:36] LABS: INR 1.26; PROTHROMBIN TIME 16.9 seconds (11.9-14.5)
[2018-03-08 05:48] LABS: ALANINE AMINOTRANSFERASE 17 IU/L (0-55); ALBUMIN 3.7 g/dL (3.5-5.0); ALBUMIN/GLOBULIN RATIO 1.5 (0.8-2.0); ALKALINE PHOSPHATASE 45 IU/L (40-150); ANION GAP 17.8 mmol/L (8-16); B-TYPE NATRIURETIC PEPTIDE2 1113.4 pg/mL (0-100); BLOOD UREA NITROGEN 18 mg/dL (7-26); BUN/CREATININE RATIO 22 (6-25); CARBON DIOXIDE 27 mmol/L (22-29); CHLORIDE 96 mmol/L (98-107); CREATININE, SERUM 0.83 mg/dL (0.57-1.11); EST GLOMERULAR FILTRATION RATE > 60 ML/MIN (60-); GLUCOSE 106 mg/dL (74-118); MAGNESIUM 1.5 MG/DL (1.3-2.1); POTASSIUM 3.8 mmol/L (3.5-5.1); SODIUM 137 mmol/L (136-145)
[2018-03-08 06:01] LABS: THYROID STIMULATING HORMONE 1.647 uIU/mL (0.350-4.940)
[2018-03-08] MEDS: FUROSEMIDE INJ 10 MG/ML 2 ML VIAL IV SCH ×2 (06:06→18:00)
--- NOTE | 2018-03-08 06:55 | NUR ---
Rounded with the installation manager nurse, patient aware of change. Patient in no distress, bed in lowest position, call huynh within reach.
[2018-03-08 07:18] LABS: ERYTHROCYTE SEDIMENTATION RATE 11 mm/hr (0-20)
[2018-03-08 07:45] VITALS: BP 127/86
[2018-03-08] MEDS: DULOXETINE HCL 30 MG DELAYED RELEASE PO SCH (09:05)
[2018-03-08] MEDS: SPIRONOLACTONE 25 MG TAB PO SCH (09:05)
[2018-03-08] MEDS: POTASSIUM CHLORIDE 20 MEQ TAB CR PO SCH (09:05)
[2018-03-08] MEDS: PANTOPRAZOLE SOD 40 MG TABEC PO SCH (09:05)
[2018-03-08] MEDS: CARVEDILOL 3.125 MG TAB PO SCH ×2 (09:05→18:00)
[2018-03-08 13:15] VITALS: BP 128/81
[2018-03-08] MEDS ORDERED: MORPHINE SULFATE INJ 4 MG/ML INJ IV PRN (14:00)
--- NOTE | 2018-03-08 14:23 | Consultation ---
DATE OF CONSULTATION: March 08, 2018 CARDIOLOGY CONSULTATION REFERRING PHYSICIAN: Dr. Zoltan Hussein. REASON FOR CONSULTATION: Evaluation for edema and erythema to the left lower extremity, evaluation for possible heart failure. HISTORY OF PRESENT ILLNESS: Ms. Small is a pleasant 67-year-old woman with a past history significant for hepatitis B viral infection, a presumed history of liver cirrhosis, hypertension, COPD, anxiety and depression, who presents to [facility] for left foot erythema and edema associated to initially vesicular wounds that developed after patient was self-bandaging her left lower extremity for leg edema, developing skin breakdown at the bandage pressure level, now developed into a scar after initial blister breakdown. She has been initiated on antibiotics and admitted to the hospital for further care. She denies any chest pain or any syncope, orthopnea, paroxysmal nocturnal dyspnea. She does elicit leg edema ongoing for various months and has also noted some mild dyspnea to moderate exertion. REVIEW OF SYSTEMS: A 12-system review is otherwise negative except for as noted above. ALLERGIES: NO KNOWN DRUG ALLERGIES. PAST MEDICAL HISTORY: Significant for hypertension per EMR, COPD, ESLD and hepatitis B viral infection. SOCIAL HISTORY: Lives at home with . Currently unemployed. Former smoker, has quit. Denies alcohol or drug use. FAMILY HISTORY: Significant for hypertension. PHYSICAL EXAMINATION VITAL SIGNS: Temperature is 97.1, heart rate 112, blood pressure 127/86, respiratory rate 18, O2 sat 92% room air. BMI is 29.2. GENERAL: Is in no acute distress. Alert, active. NECK: No JVD. CHEST: Decreased breath sounds in bilateral bases. CARDIOVASCULAR: Regular rate and rhythm. Normal S1 and S2. No S3, no S4. No murmurs or rubs. ABDOMEN: Soft, nontender. EXTREMITIES: Trace edema to the left lower extremity with erythema at the proximal to medial forefoot and wound bed is superficial with black eschar and approximately half an inch by 1-1/2 to 2 inches in diameter. Pedal and dorsalis pedis pulses are decreased bilaterally. CARDIOVASCULAR MEDICATIONS: Reviewed. 1. Furosemide 20 mg b.i.d. 2. Spironolactone 50 mg daily. 3. Potassium chloride 40 mEq daily. STUDIES: Reviewed. Sodium 147, potassium 3.8, chloride 96, bicarbonate 27, BUN 18, creatinine 0.83, glucose 106. White blood cells 5.13, hemoglobin 12.7, platelets 60. INR 1.6. AST 24, ALT 17, total bilirubin is 3.4, alk phos 45. ASSESSMENT 1. Volume overload in the setting of suspected liver disease. Per report patient with history of liver cirrhosis. Differential diagnosis includes heart failure, liver disease, and nephrotic-range proteinuria. 2. Hypertension, history of, currently normotensive off antihypertensives. Continue to monitor. 3. Reported history of chronic obstructive pulmonary disease and former smoking. 4. Left foot cellulitis and blister and skin breakdown without normal pedal pulses. RECOMMENDATIONS 1. Arterial Doppler of lower extremities to assess or screen PAD. 2. Venous ultrasound for the left lower extremity to rule out a DVT. 3. Obtain echocardiogram to further assess for evidence of systolic heart failure or diastolic dysfunction given patient's presentation. 4. Continue diuretics. I thank Dr. Hussein and Dr. Baugh for the opportunity to participate in the care of Ms. Small. Please feel free to call with any questions or concerns. Will follow closely. Job#: [id number] EV RUFUS
--- NOTE | 2018-03-08 14:40 | Consultation ---
DATE OF CONSULTATION: CHIEF COMPLAINT AND HISTORY OF THE CHIEF COMPLAINT: Ms. Small is a most pleasant, 67-year-old female who is in the hospital today complaining of intense swelling and pain in the right foot and ankle. She stated that she had this lesion for approximately a week, which she started by scratching herself when she was pulling off a sock on the anterior aspect of the ankle. She stated it got worse and worse up until her time of admission Wanda day here in the hospital. She stated that she noted once she got in the hospital and got on the IV antibiotics, the foot is already improving. The patient denies any other complaints. She states that she was ambulatory and able to drive prior to her admission and in her normal state of health. She is and lives with her . REVIEW OF SYSTEMS CONSTITUTIONAL: Patient denies nausea, vomiting, fever or chills. ENT: She does not have a sore throat or any other complaints in that area. CARDIOVASCULAR: The patient is complaining of no chest pain. PULMONARY: No cough. GI: No abdominal pain. : No noted dysuria. MUSCULOSKELETAL: The left ankle has an intense redness with a central ulceration. PREVIOUS MEDICAL HISTORY: The patient does have a history of hypertension as well as COPD, anxiety, depression. She denies diabetes or stroke. ALLERGIES: NO KNOWN MEDICAL ALLERGIES. PAST SURGICAL HISTORY: Patient has had a hysterectomy, liver biopsy and cholecystectomy. HOME MEDICATIONS: Please see med rec sheet. SOCIAL HISTORY: The patient denies drinking alcohol or substance abuse at the present time. She also states she is a nonsmoker. PHYSICAL EVALUATION OF LOWER EXTREMITIES VASCULAR STATUS: The patient has nonpalpable pedal pulses in either dorsalis pedis or posterior tibial. Skin temperature is, however, warm. Capillary refill is adequate. MUSCULOSKELETAL: Evaluation appears to be grossly intact and symmetrical. DERMATOLOGIC: There is an intense redness with a central lesion which is approximately 5 cm x 2 cm and has a darkened, necrotic wound base. RADIOGRAPHS: No acute osseous anomalies at this time. MICROBIOLOGY: The wound cultures and urine cultures and blood cultures are currently in progress. LABS: Reviewed. The white count was 5.13 on admission. ASSESSMENT AT THIS TIME: Cellulitis with no obvious abscessing to the right foot and ankle. Patient failed a course of oral antibiotics and has been admitted for IV antibiotics. There is no reason to believe this is a deeper wound infection at this time or that bone may be involved as radiographs are negative. The patient is afebrile and otherwise stable and in her normal state of health. I do recommend following with wound cultures and continuing with IV antibiotics. Topical wound dressings with Silvadene wet-to-dry and Kerlix will be prescribed. Otherwise, follow on an as-needed basis. Thank you very much for asking us to see this most pleasant patient. Job#: [id number]
[2018-03-08] MEDS: VANCOMYCIN 1GM/NS 250 ML 250 ML IV SCH (15:30)
[2018-03-08] MEDS ORDERED: LACTULOSE SYRUP 20 GM/30 ML UDC PO PRN (15:45)
--- NOTE | 2018-03-08 17:02 | Consultation ---
DATE OF CONSULTATION: March 08, 2018 GASTROENTEROLOGY CONSULTATION REFERRING PHYSICIAN: Dr. Baugh. REASON FOR CONSULTATION: Cirrhosis. HISTORY OF PRESENT ILLNESS: Patient is a 67-year-old female with past medical history of hypertension, COPD, anxiety/depression, presumed liver cirrhosis, presumed hep C, and dementia, who presented to the emergency room for evaluation of left foot erythema and edema along with scar and blister on the left lower extremity. Patient has been given antibiotics and admitted to the hospital. GI has been consulted for cirrhosis. Patient is not able to give me a good history of when she was diagnosed with cirrhosis, but she states she had had hepatitis C in the past and had been treated for it in the hospital. She denies any overt signs of bleeding and has never reported any history of alcoholism. She denies any chest pain, shortness of breath, fevers or chills. Currently there is no abdominal imaging on the EMR to prove any cirrhosis, and hepatitis panels are pending. REVIEW OF SYSTEMS: No chest pain, no shortness of breath, no dysphagia, no abdominal pain, no nausea, no vomiting, no hematochezia, no melena, no hematemesis. ALLERGIES: NO KNOWN DRUG ALLERGIES. PAST MEDICAL HISTORY: Significant for hypertension, COPD, hepatitis C per patient, and cirrhosis per records. SOCIAL HISTORY: Patient is living at home with her , and she is currently on disability and unemployed. She states she used to be a smoker in the past and occasionally drinks alcohol. FAMILY HISTORY: Diabetes. PHYSICAL EXAMINATION VITALS: Currently 96.9 temperature, pulse 98, respiratory rate 12, blood pressure is 128/81, and pulse ox is 92. GENERAL: No acute distress. Alert, active, oriented. NECK: No JVD. RESPIRATORY: Decreased breath sounds. CARDIOVASCULAR: Normal S1, S2. No murmurs or rubs. ABDOMEN: Soft, nontender, and bowel sounds are active. EXTREMITIES: Left lower extremity erythema and edema with black eschar. IMAGING AND LABS: White count is 5.13, hemoglobin 13.9, MCV 101.2, platelet count is 72. Coags: PT 16.9, INR 1.26. Sodium 137, creatinine 0.83. AST 24, ALT 17. Total protein 6.1 BNP 1113. ASSESSMENT 1. History of hepatitis C per patient. 2. History of presumed cirrhosis per records. 3. Thrombocytopenia. 4. Left foot cellulitis. PLAN 1. I will go ahead and order an abdominal ultrasound to screen for cirrhosis since history is quite questionable based on patient. 2. I will go ahead and order acute hepatitis panel. 3. We will put patient on low-dose lactulose to monitor stooling. 4. Continue diuretics per Cardiology. 5. Low-sodium diet and no NSAIDs. Thank you, Dr. Baugh, for consulting us. We will follow closely. Dictated by: Lorena Mosley PA-C Job#: [id number] EV
[2018-03-08 17:21] LABS: BILIRUBIN,URINE NEGATIVE (NEGATIVE); CLARITY,URINE CLEAR (CLEAR); COLOR,URINE YELLOW (YELLOW); KETONES,URINE NEGATIVE (NEGATIVE); LEUKOCYTE ESTERASE ,URINE NEGATIVE (NEGATIVE); NITRITE,URINE NEGATIVE (NEGATIVE); PROTEIN,URINE DIPSTICK NEGATIVE (NEGATIVE); URINE UROBILINOGEN 0.2 mg/dL (0.2 - 1)
[2018-03-08 17:29] LABS: EPITHELIAL CELLS,URINE FEW /LPF; RBC,URINE 0-5 /HPF (0-5); WBC,URINE (MAN) 0-5 /HPF (0-5)
[2018-03-08] MEDS: SILVER SULFADIAZINE 50GM CREAM TOP SCH (18:00)
--- NOTE | 2018-03-08 18:50 | NUR ---
rounded with the shift commander nurse, patient aware of change. Patient in no distress, call huynh within reach
[2018-03-08 19:19] VITALS: BP 140/60
[2018-03-08 20:00] VITALS: BP 100/57
[2018-03-08] MEDS: DONEPEZIL HCL 5 MG TAB PO SCH (20:28)
--- NOTE | 2018-03-08 20:49 | Diagnostic Imaging Report ---
EXAM: Complete Abdominal Ultrasound INDICATION: CIRRHOSIS COMPARISON: None. TECHNIQUE: Transverse and longitudinal images of the upper abdomen were obtained. FINDINGS: Liver: Size: 10.4 cm in the right midclavicular line, small Appearance: Coarse echogenicity, nodular contour Mass: No focal masses Spleen: Size: 12.8 cm in length, normal Echogenicity: Normal Mass: No focal masses Gallbladder: Not visualized Bile Ducts: Intrahepatic Ducts: No dilatation Extrahepatic Ducts: Common bile duct measures 0.3 cm, no dilatation Pancreas: Visualized portions of the pancreatic head, neck and proximal body are normal. Right Kidney: Size: 9.6 x 5.1 x 4.3 cm Echogenicity: Normal Parenchymal thickness: Normal Collecting System: No hydronephrosis Stone: None Cyst/Mass: None Left Kidney: Size: 9.4 x 3.8 x 4.6 cm Echogenicity: Normal Parenchymal thickness: Normal Collecting System: No hydronephrosis Stone: None Cyst/Mass: None Vessels: Aorta: Visualized portions are normal Inferior Vena Cava: Visualized portions are normal Main Portal Vein: 0.6 cm, normal size with hepatopetal flow. Free Fluid: Trace ascites in the right upper quadrant. IMPRESSION: 1. Coarse nodular liver, consistent with cirrhosis. No focal mass. 2. Trace ascites. 3. Gallbladder is not visualized. This may be related to patient's recent food ingestion. Signed by: Dr. Carlton Granger M.D. on 03/08/2018 8:46 PM
[2018-03-09] VITALS: BP 100/57
[2018-03-09] MEDS ORDERED: SODIUM CHLORIDE 0.9% 250ML 250 ML ONE (00:38)
[2018-03-09] MEDS: CEFEPIME 1GM/NS 0.9% 50 ML 50 ML IV SCH ×3 (00:49→17:00)
--- NOTE | 2018-03-09 01:00 | NUR ---
patient's IV has infiltrated. A new 22 gauge IV has been started on patient's left hand. will continue to monitor patient.
[2018-03-09] MEDS: VANCOMYCIN 1GM/NS 250 ML 250 ML IV SCH ×2 (02:02→15:17)
[2018-03-09 04:00] VITALS: BP 117/76
--- NOTE | 2018-03-09 06:00 | NUR ---
patient's 22 gauge IV on left hand has infiltrated. a new 22 gauge IV has been started on patient's right wrist. IV is patent, and blood is flowing. procedure tolerated well. Will continue to monitor patient.
[2018-03-09 06:04] LABS: BASOPHILS % 0.9 % (0.0-1.0); EOSINOPHILS # (AUTO) 0.1 (0.0-0.4); EOSINOPHILS % 1.4 % (0.0-6.0); HEMATOCRIT 36.9 % (34.2-44.1); HEMOGLOBIN 12.2 g/dL (12.0-16.0); LYMPHOCYTES # (AUTO) 0.9 (1.0-3.2); LYMPHOCYTES % 20.9 % (18.0-39.1); MEAN CORPUSCULAR HGB CONC 33.1 g/dL (31-35); MEAN CORPUSCULAR VOLUME 102.8 fL (81-99); MONOCYTES # (AUTO) 0.5 (0.2-0.8); MONOCYTES % 11.8 % (4.4-11.3); NEUTROPHILS # (AUTO) 2.7 (2.1-6.9); NEUTROPHILS % 64.5 % (38.7-80.0); PLATELET COUNT 50 x10e3/uL (140-360); RED BLOOD COUNT 3.59 x10e6/uL (3.6-5.1); RED CELL DISTRIBUTION WIDTH 15.3 % (11.7-14.4)
[2018-03-09] MEDS: FUROSEMIDE INJ 10 MG/ML 2 ML VIAL IV SCH ×2 (06:23→18:00)
[2018-03-09 06:27] LABS: ALANINE AMINOTRANSFERASE 17 IU/L (0-55); ALBUMIN 3.6 g/dL (3.5-5.0); ALBUMIN/GLOBULIN RATIO 1.6 (0.8-2.0); ALKALINE PHOSPHATASE 44 IU/L (40-150); ANION GAP 15.7 mmol/L (8-16); BILIRUBIN,DIRECT 1.8 mg/dL (0.0-0.5); BLOOD UREA NITROGEN 20 mg/dL (7-26); BUN/CREATININE RATIO 27 (6-25); CALCIUM 8.9 mg/dL (8.4-10.2); CARBON DIOXIDE 28 mmol/L (22-29); CHLORIDE 94 mmol/L (98-107); CREATININE, SERUM 0.75 mg/dL (0.57-1.11); EST GLOMERULAR FILTRATION RATE > 60 ML/MIN (60-); GLUCOSE 99 mg/dL (74-118); POTASSIUM 3.7 mmol/L (3.5-5.1); SODIUM 134 mmol/L (136-145)
[2018-03-09 07:02] LABS: ANISOCYTOSIS SLIGHT; PLATELET ESTIMATE MODERATELY DECREASED; PLATELET MORPHOLOGY COMMENT NORMAL; RBC MORPHOLOGY COMMENT NORMAL
[2018-03-09 08:10] VITALS: BP 120/82
--- NOTE | 2018-03-09 09:40 | NUR ---
SOCIAL WORK INITIAL ASSESSMENT Him Director to bedside to discuss plan of care with patient/family. CM/SW role and care transitions discussed. Anticipated discharge plan discussed along with duration of care. CM/SW discussed patients right to make decisions in care. CM/SW work hours given. Patient lives: IN OWN HOUSE WITH FAMILY Admit/Transfer: VIA HOME POA/Emergency contact: PREETI [phone] Current/Previous Home Health: NONE PCP/Follow-up Care: PLAN Current/Previous DME: HAS O2 AT HOME Other Services: NONE Employment Status: RETIRED Areas of Concerns: NONE Referral Needs: NONE Education Needs: NONE IMM/MCLEOD given and signed (if applicable): MCLEOD Goal for discharge: RETURN HOME INDEPENDENTLY CM/SW left business card at the bedside with contact information. Name and number was also written on the patients whiteboard. Patient verbalized understanding of discussion. CM will follow-up with ongoing discharge and transition of care needs. Addendum: 03/09/18 at 0942 by Rupali Wright CM PCP IS DARRIN
--- NOTE | 2018-03-09 09:42 | Progress Note ---
DATE: March 09, 2018 SUBJECTIVE: Patient at bedside. Denying any history of fever, chills, nausea, or vomiting. OBJECTIVE VITALS: Afebrile, pulse rate 91, respirations 20, blood pressure 120/82, O2 saturation 96%. EXTREMITIES: Has cellulitis to the left foot with open lesion/grade 1 ulcer, dorsal aspect of left lower extremity. Pedal pulses are palpable. White blood cell count of 4.22. ASSESSMENT: Grade 1 ulcer with cellulitis. PLAN: Continue Silvadene to the affected area. Continue IV vancomycin and cefepime. Will continue to follow. Job#: [id number] RI
--- NOTE | 2018-03-09 09:54 | NUR ---
DR. Curry CLIFFORD NOTIFIED AND AWARE PATIENT QUALIFIES FOR INPATIENT STATUS. PENDING HIS DECISION TO FLIP PATIENT INPATIENT OR LEAVE PATIENT OBSERVATION STATUS.
[2018-03-09] MEDS: POTASSIUM CHLORIDE 20 MEQ TAB CR PO SCH (10:20)
[2018-03-09] MEDS: DULOXETINE HCL 30 MG DELAYED RELEASE PO SCH (10:20)
[2018-03-09] MEDS: CARVEDILOL 3.125 MG TAB PO SCH ×2 (10:20→17:00)
[2018-03-09] MEDS: SPIRONOLACTONE 25 MG TAB PO SCH (10:20)
[2018-03-09] MEDS: SILVER SULFADIAZINE 50GM CREAM TOP SCH ×2 (10:20→14:40)
[2018-03-09] MEDS: PANTOPRAZOLE SOD 40 MG TABEC PO SCH (10:20)
[2018-03-09 12:42] VITALS: BP 125/72
--- NOTE | 2018-03-09 14:38 | Progress Note ---
DATE: March 09, 2018 PREVIOUS MEDICAL HISTORY: Ms. Small continues with open wound on anterior aspect of the left ankle. She is somewhat improved with regards to cellulitis. There is a decrease in the redness and swelling in the left lower extremity. I have recommended a sharp debridement today due to the wound base, which is markedly improved, but it continues at approximately a 4 cm x 2 cm wound of which approximately 50% is yellowish fibrin slough and 50% is granular tissue. The wound itself is treated today with a sharp excisional debridement for removal of all fibrin slough. With local anesthesia present, the area was treated with an excisional debridement of fibrin slough at the dorsal wound bed utilizing a #15 sharp instrument circumferentially and in the lateral aspect of the wound base itself. The fibrin slough was sharply debrided and excised. The area was irrigated with saline solution and redressed with Silvadene wet-to-dry dressings. Patient tolerated the procedure, prep and redress well with minimal discomfort. She is to continue with IV antibiotics through the weekend, and will likely be able to be discharged early next week. She continues with further medical workup in the interim. Job#: [id number] WO[place]
[2018-03-09 17:04] VITALS: BP 102/65
--- NOTE | 2018-03-09 19:05 | NUR ---
rounded with the net making supervisor nurse, patient aware of change. Patient in no distress, call huynh within reach.
[2018-03-09 20:00] VITALS: BP 102/70
--- NOTE | 2018-03-09 23:11 | Diagnostic Imaging Report ---
EXAM: CT CHEST W INDICATION: Wound and swelling to left foot, right ventricular failure, evaluate for pulmonary embolism COMPARISON: None TECHNIQUE: Multidetector CT scanning of the chest was performed. Coronal and sagittal multiplanar reformations were obtained. Dose modulation, iterative reconstruction, and/or weight based adjustment of the mA/kV was utilized to reduce the radiation dose to as low as reasonably achievable. P. E. protocol performed. IV Contrast: 100 cc Isovue-370 CTDIvol has been reviewed. It is below the limits set by the Radiation Protocol Committee (RPC). FINDINGS: LUNGS AND AIRWAYS: The trachea and major bronchi are unremarkable. Mild septal thickening. No consolidations. PLEURA: Trace left pleural effusion. HEART, MEDIASTINUM, VESSELS: The heart is enlarged. No abnormal pericardial effusion. Ectasia of the ascending thoracic aorta up to 4 cm. The main pulmonary artery is dilated to 4 cm. Limited contrast opacification of the pulmonary arteries past the segmental branches. UPPER ABDOMEN: Cirrhotic liver morphology. Cholecystectomy. Mild ascites. Splenic there are series. MUSCULOSKELETAL: No acute findings. IMPRESSION: 1. No evidence of a pulmonary embolism to the segmental level. 2. Cardiomegaly, mild interstitial edema, ectasia of the ascending thoracic aorta and dilation of the pulmonary arteries consistent with pulmonary hypertension. 3. Cirrhosis with portal hypertension and small volume ascites in the upper abdomen. Signed by: Dr. Yoly Rubi M.D. on 03/09/2018 11:08 PM
--- NOTE | 2018-03-09 23:12 | Progress Note ---
DATE: March 09, 2018 CARDIOLOGY PROGRESS NOTE SUBJECTIVE: Feels better today. Denies chest pain. Edema improving. Erythema to left foot improving. PHYSICAL EXAMINATION: VITAL SIGNS: Temperature 97.7, heart rate 100, blood pressure 102/70, respiratory rate 19, O2 sat 91% on nasal cannula. GENERAL: In no acute distress. NECK: JVD elevated. CHEST: With scattered rhonchi. CARDIOVASCULAR: Regular rate and rhythm. Normal S1 and S2. ABDOMEN: Soft. EXTREMITIES: 1+ edema to bilateral lower extremities. Left erythema and wound covered with dressings. CARDIOVASCULAR MEDICATIONS: Reviewed. Furosemide 20 mg b.i.d. IV, KCl 40 mEq daily, spironolactone 50 mg daily, on cefepime and vancomycin, carvedilol 3.125 mg b.i.d. STUDIES: Reviewed. Sodium 134, potassium 3.7, chloride 94, bicarbonate 28, BUN 20, creatinine 0.75, glucose 99. White blood cells 4.2, hemoglobin 12.2, platelets 50,000. INR 1.26. AST 23, ALT 17. Echocardiogram reviewed, has preserved left ventricular systolic function, however, has severe dilatation of the right ventricle and severe impairment in right ventricular systolic function with septal flattening concerning for elevated pressures. Tricuspid regurgitation seems severe. Ultrasound of the liver suggestive of liver cirrhosis. ASSESSMENT: 1. [id number] severe right ventricular systolic heart failure in the setting of tricuspid regurgitation and pulmonary hypertension. 2. Liver cirrhosis in the setting of hepatitis C and right-sided heart failure. 3. Hypertension and dyslipidemia. 4. Smoking history and reported history of chronic obstructive pulmonary disease. RECOMMENDATIONS: 1. Obtain CTA PE protocol to rule out pulmonary embolism versus thromboembolic pulmonary disease and further assess for other pulmonary vascular etiology for the right-sided heart failure and pulmonary hypertension. Otherwise, likely attributable to COPD. 2. Consider PFTs at some point, which can be done as outpatient. 3. Agree with diuretics, seems to be improving. 4. Arterial Doppler to left lower extremity is showing mild PAD. At this point, no additional invasive evaluation is advised. 5. Her lower extremities deep venous thrombosis. 6. Continue antibiotics and wound care. 7. Please feel free to call with any questions. Job#: [id number]
--- NOTE | 2018-03-09 23:25 | Progress Note ---
DATE: March 09, 2018 GI PROGRESS REPORT SUBJECTIVE: Patient reports no abdominal pain, on IV antibiotics for cellulitis. Probably she is not sure if she has had a bowel movement today. REVIEW OF SYSTEMS: GENERAL: No fever or chills. CVS: No chest pain, palpitation. RESPIRATORY: No cough or expectoration. MEDICATIONS: Reviewed the MAR. She is on vancomycin as well as cefepime intravenously for cellulitis. PHYSICAL EXAMINATION: VITAL SIGNS: Temperature 97.7, pulse ranging from 87 to 100, respiration 19 to 20, blood pressure 102/70, oxygen saturation 91% on room air. GENERAL: Not in any acute distress. HEENT: Oral mucosa is moist. Anicteric sclerae. ABDOMEN: Soft. Protuberant belly. No digitally appreciable shifting dullness. No palpable hepatosplenomegaly. Nontender. No palpable mass or hernia. Positive bowel sounds. LABS: WBC 4.22, hemoglobin 12.2, hematocrit 36.9, MCV 102.8, platelet count 50,000. Sodium 134, potassium 3.7, chloride 94, bicarb 28, BUN 20, creatinine 0.75. Liver enzymes showed a total bilirubin 3.5, a direct bilirubin 1.8, AST 23, ALT 17, alkaline phosphatase 44. Ultrasound of the abdomen showed nodular liver consistent with cirrhosis, no focal mass. Trace ascites. Gallbladder not visualized. Hepatitis C antibody is positive. IMPRESSION: Compensated hepatitis C liver cirrhosis, although patient has mild ascites. PLAN: Will check hepatitis C RNA as well as genotype. Lactulose to ensure 1 or 2 bowel movements daily. I have given patient my business card. She needs treatment for hepatitis C if the infection is confirmed. This can be electively done as an outpatient. Patient will follow in my office within 1 to 2 weeks after discharge. Job#: [id number] DR HOOPER
[2018-03-09] MEDS: DONEPEZIL HCL 5 MG TAB PO SCH (23:35)
[2018-03-09] MEDS ORDERED: SODIUM CHLORIDE 0.9% 50ML 50 ML ONE (23:57)
[2018-03-09] MEDS ORDERED: IOPAMIDOL 370 MG/ML 200 ML INFUS..BTL INJ ONE (23:57)
[2018-03-10] VITALS (7 sets, daily range): BP systolic 107–124; BP diastolic 62–84
[2018-03-10] MEDS: CEFEPIME 1GM/NS 0.9% 50 ML 50 ML IV SCH ×3 (02:44→18:15)
[2018-03-10] MEDS: VANCOMYCIN 1GM/NS 250 ML 250 ML IV SCH ×2 (02:56→14:37)
[2018-03-10] MEDS: FUROSEMIDE INJ 10 MG/ML 2 ML VIAL IV SCH ×2 (05:28→18:15)
[2018-03-10 05:29] LABS: BASOPHILS % 0.6 % (0.0-1.0); EOSINOPHILS # (AUTO) 0.1 (0.0-0.4); EOSINOPHILS % 2.6 % (0.0-6.0); HEMOGLOBIN 12.2 g/dL (12.0-16.0); LYMPHOCYTES # (AUTO) 1.1 (1.0-3.2); LYMPHOCYTES % 23.2 % (18.0-39.1); MEAN CORPUSCULAR HEMOGLOBIN 33.9 pg (28-32); MEAN CORPUSCULAR VOLUME 102.8 fL (81-99); MONOCYTES # (AUTO) 0.6 (0.2-0.8); MONOCYTES % 11.9 % (4.4-11.3); NEUTROPHILS # (AUTO) 2.9 (2.1-6.9); NEUTROPHILS % 61.1 % (38.7-80.0); PLATELET COUNT 65 x10e3/uL (140-360); RED CELL DISTRIBUTION WIDTH 15.5 % (11.7-14.4)
[2018-03-10 06:01] LABS: ALANINE AMINOTRANSFERASE 14 IU/L (0-55); ALBUMIN 3.6 g/dL (3.5-5.0); ALBUMIN/GLOBULIN RATIO 1.4 (0.8-2.0); ALKALINE PHOSPHATASE 47 IU/L (40-150); ANION GAP 13.9 mmol/L (8-16); BLOOD UREA NITROGEN 23 mg/dL (7-26); BUN/CREATININE RATIO 27 (6-25); CARBON DIOXIDE 29 mmol/L (22-29); CHLORIDE 96 mmol/L (98-107); CREATININE, SERUM 0.85 mg/dL (0.57-1.11); EST GLOMERULAR FILTRATION RATE > 60 ML/MIN (60-); GLUCOSE 109 mg/dL (74-118); POTASSIUM 3.9 mmol/L (3.5-5.1); SODIUM 135 mmol/L (136-145)
--- NOTE | 2018-03-10 06:55 | NUR ---
Walking rounds done. Patient instructed to call for assistance as needed and verbalized understanding. AM assessment done. Call huynh within reach.
--- NOTE | 2018-03-10 07:42 | Progress Note ---
DATE: March 10, 2018 SUBJECTIVE: Patient at bedside, doing somewhat better. Denies any history of fever, chills, nausea, or vomiting. Still having some pain to the left lower extremity. OBJECTIVE VITAL SIGNS: Afebrile. Pulse rate 83, respirations 16, blood pressure 108/67, O2 saturation 94%. SKIN: Ulceration to the dorsal aspect of left foot shows some improvement, some fibrin base noted. No tendon or bone exposed. Still positive edema and cellulitis to the dorsal aspect of left foot. LABS: Noted. White blood cell count 4.7, hemoglobin 12.2 with a platelet count of 65,000. ASSESSMENT: Cellulitis with a grade-2 ulcer of left foot. PLAN: Will continue local wound care with Silvadene. Continue IV antibiotics such as vancomycin and cefepime. Continue offloading. Will continue following. Job#: [id number] CHARO
--- NOTE | 2018-03-10 08:20 | NUR ---
CM ESCALATED LOC TO DIRECTOR OF CULTURE DR. EDINSON THOMASON PATIENT LEVEL OF CARE. PENDING RETURN EMAIL TO DETERMINE WHETHER PATIENT WILL BE FLIPPED INPATIENT OR REMAIN IN OBSERVATION STATUS.
--- NOTE | 2018-03-10 09:16 | NUR ---
Dr. Baugh saw pt this morning and wrote prescriptions. He documented pt could dc home today if okay with podiatry.
[2018-03-10] MEDS: PANTOPRAZOLE SOD 40 MG TABEC PO SCH (09:17)
[2018-03-10] MEDS: POTASSIUM CHLORIDE 20 MEQ TAB CR PO SCH (09:17)
[2018-03-10] MEDS: SPIRONOLACTONE 25 MG TAB PO SCH (09:17)
[2018-03-10] MEDS: CARVEDILOL 3.125 MG TAB PO SCH ×2 (09:17→18:15)
[2018-03-10] MEDS: DULOXETINE HCL 30 MG DELAYED RELEASE PO SCH (09:17)
[2018-03-10] MEDS: SILVER SULFADIAZINE 50GM CREAM TOP SCH ×2 (09:19→18:03)
--- NOTE | 2018-03-10 10:30 | NUR ---
Per Dr. Ayala patient needs to stay at least one more day for the redness to the left foot to subside.
--- NOTE | 2018-03-10 12:50 | Progress Note ---
DATE: March 10, 2018 CARDIOLOGY PROGRESS NOTE SUBJECTIVE: Left foot pain today. PHYSICAL EXAMINATION VITAL SIGNS: Temperature 97 degrees, heart rate 86, respiratory rate 14, blood pressure 107/69, O2 sat 95% on room air. GENERAL: In no acute distress. Alert. NECK: No JVD. CHEST: Clear to auscultation. CARDIOVASCULAR: Regular rate and rhythm. Normal S1 and S2. No S3 or S4, systolic ejection murmur. ABDOMEN: Soft, nontender. EXTREMITIES: No edema. Left foot wound covered with dressing. Erythema improving. CARDIOVASCULAR MEDICATIONS: Reviewed. On cefepime and vancomycin. Spironolactone, carvedilol, furosemide. STUDIES: White blood cells 4.7, hemoglobin 12.2, platelets 65, creatinine 0.8, potassium 3.9, bicarbonate 29. HCV RNA PCR is pending. Chest CT with no evidence of pulmonary embolism to segmental level. Cardiomegaly with mild interstitial edema, ectasia of the ascending thoracic aorta and dilatation of pulmonary arteries consistent with pulmonary arterial hypertension. Cirrhosis with portal hypertension and a small volume ascites in the upper abdomen noted. ASSESSMENTS 1. Pulmonary hypertension in the setting of reported history of chronic obstructive pulmonary disease. 2. Severe tricuspid regurgitation. 3. Right-sided systolic heart failure, [id number]. 4. Left foot wound with cellulitis. 5. History of hepatitis C virus infection with liver cirrhosis and ascites. 6. Hypertension. 7. Dyslipidemia. 8. Former smoker. RECOMMENDATIONS 1. Outpatient PFT is advised. 2. Can consider outpatient PFTs and agitated saline shunt evaluation for further assessment. Differential diagnosis includes hepatopulmonary syndrome secondary to pulmonary hypertension from COPD, leading to right-sided heart failure and dilatation, and tricuspid regurgitation associated to annular dilatation. 3. Continue diuretics. 4. Continue rest of cardiovascular medications. 5. Continue antibiotics. 6. Outpatient followup strongly encouraged. Job#: [id number] TAMMY
--- NOTE | 2018-03-10 19:15 | NUR ---
Report given to oncoming nurse. Call huynh within reach.
[2018-03-10] MEDS: DONEPEZIL HCL 5 MG TAB PO SCH (20:49)
[2018-03-11] VITALS (8 sets, daily range): BP systolic 91–118; BP diastolic 56–74
[2018-03-11] MEDS: CEFEPIME 1GM/NS 0.9% 50 ML 50 ML IV SCH ×3 (01:16→18:22)
[2018-03-11] MEDS: VANCOMYCIN 1GM/NS 250 ML 250 ML IV SCH ×2 (05:28→14:00)
[2018-03-11 06:20] LABS: BASOPHILS % 0.9 % (0.0-1.0); EOSINOPHILS # (AUTO) 0.1 (0.0-0.4); EOSINOPHILS % 2.3 % (0.0-6.0); HEMATOCRIT 35.7 % (34.2-44.1); HEMOGLOBIN 11.9 g/dL (12.0-16.0); LYMPHOCYTES # (AUTO) 0.7 (1.0-3.2); LYMPHOCYTES % 21.3 % (18.0-39.1); MEAN CORPUSCULAR HEMOGLOBIN 34.2 pg (28-32); MEAN CORPUSCULAR HGB CONC 33.3 g/dL (31-35); MEAN CORPUSCULAR VOLUME 102.6 fL (81-99); MONOCYTES # (AUTO) 0.4 (0.2-0.8); MONOCYTES % 11.7 % (4.4-11.3); NEUTROPHILS # (AUTO) 2.2 (2.1-6.9); NEUTROPHILS % 63.2 % (38.7-80.0); PLATELET COUNT 53 x10e3/uL (140-360); RED BLOOD COUNT 3.48 x10e6/uL (3.6-5.1); RED CELL DISTRIBUTION WIDTH 15.3 % (11.7-14.4)
[2018-03-11] MEDS: FUROSEMIDE INJ 10 MG/ML 2 ML VIAL IV SCH ×2 (06:24→18:22)
[2018-03-11 06:50] LABS: ALANINE AMINOTRANSFERASE 17 IU/L (0-55); ALBUMIN 3.4 g/dL (3.5-5.0); ALBUMIN/GLOBULIN RATIO 1.4 (0.8-2.0); ALKALINE PHOSPHATASE 45 IU/L (40-150); ANION GAP 15.7 mmol/L (8-16); BLOOD UREA NITROGEN 22 mg/dL (7-26); BUN/CREATININE RATIO 29 (6-25); CALCIUM 8.9 mg/dL (8.4-10.2); CARBON DIOXIDE 27 mmol/L (22-29); CHLORIDE 99 mmol/L (98-107); CREATININE, SERUM 0.76 mg/dL (0.57-1.11); EST GLOMERULAR FILTRATION RATE > 60 ML/MIN (60-); GLUCOSE 108 mg/dL (74-118); POTASSIUM 3.7 mmol/L (3.5-5.1); SODIUM 138 mmol/L (136-145)
--- NOTE | 2018-03-11 07:15 | NUR ---
HANDOFF REPORT AND WALKING ROUNDS WITH OUTGOING BENEFITS REPRESENTATIVE NURSE
[2018-03-11] MEDS: PANTOPRAZOLE SOD 40 MG TABEC PO SCH (09:30)
[2018-03-11] MEDS: SPIRONOLACTONE 25 MG TAB PO SCH (09:30)
[2018-03-11] MEDS: DULOXETINE HCL 30 MG DELAYED RELEASE PO SCH (09:30)
[2018-03-11] MEDS: POTASSIUM CHLORIDE 20 MEQ TAB CR PO SCH (09:30)
[2018-03-11] MEDS: CARVEDILOL 3.125 MG TAB PO SCH ×2 (09:30→18:22)
[2018-03-11] MEDS: SILVER SULFADIAZINE 50GM CREAM TOP SCH ×2 (10:24→18:38)
--- NOTE | 2018-03-11 13:55 | NUR ---
dr. dyan allen. okay to discharge per cardiac knight; she will be seen as outpatient.
--- NOTE | 2018-03-11 15:07 | NUR ---
Call placed to Dr. Baugh at this time to report critical vanc trough.
--- NOTE | 2018-03-11 15:10 | NUR ---
call back rec'd from Dr. Baugh, instructed to hold vanc, make Dr. Misty Hussein aware when he rounds.
--- NOTE | 2018-03-11 15:38 | Progress Note ---
DATE: March 11, 2018 SUBJECTIVE: Patient seen at bedside, doing better. Decreased swelling. Decreased pain to the left lower extremity. OBJECTIVE VITAL SIGNS: Afebrile, pulse rate 83, respiratory rate 16, blood pressure 115/71, O2 saturation 96%. EXTREMITIES: Still some moderate amount of swelling noted to the left lower extremity compared to right. Still has dorsal cellulitis ulceration to the dorsal aspect of left foot, less than 3 cm in diameter, healing slowly. Pedal pulses are palpable, but diminished. LABS: Noted. White blood cell count 3.4, hemoglobin 11.9, platelet count of 53. ASSESSMENT: Cellulitis with grade 2 ulcer dorsal aspect, left foot. PLAN: Will continue IV antibiotics for a couple more days. Continue local wound care. Continue elevation. Will continue following. Job#: [id number] CAYDEN
--- NOTE | 2018-03-11 16:14 | Progress Note ---
DATE: March 11, 2018 CARDIOLOGY PROGRESS NOTE SUBJECTIVE: No new complaints. Left wound discomfort improving. OBJECTIVE VITAL SIGNS: Temperature 97.3, heart rate 87, respiratory rate 16, blood pressure 115/71, O2 sat 96% on room air. GENERAL: In no acute distress. Alert. NECK: No JVD. CHEST: Clear to auscultation. CARDIOVASCULAR: Regular rate and rhythm. Normal S1, S2. No S3. No S4. ABDOMEN: Soft. EXTREMITIES: Left foot erythema and wound, seems to be decreasing in size. Edema resolved. CARDIOVASCULAR MEDICATIONS: Reviewed; 1. On cefepime and vancomycin. 2. Carvedilol 3.125 mg every 12 hours. 3. Furosemide 20 mg b.i.d. 4. Lactulose 20 mg daily. 5. KCl 40 mEq daily. 6. Spironolactone 50 mg daily. STUDIES: Reviewed. Potassium 3.7, chloride 127, bicarbonate 22, creatinine 0.76, glucose 108, white blood cell 3.4, hemoglobin 11.9, platelets 53, INR 1.26, AST 22, ALT 17. ASSESSMENT 1. Left foot wound cellulitis. 2. Severe oufyk-fk-vkqgnii systolic heart failure. 3. Severe tricuspid regurgitation. 4. Pulmonary hypertension. 5. Liver cirrhosis. 6. Suspected chronic obstructive pulmonary disease. RECOMMENDATIONS 1. Volume status has been optimized. 2. Continue current cardiovascular medications. 3. Outpatient workup discussed and advised to rule out hepatopulmonary syndrome and further confirm intrinsic lung disease/chronic obstructive pulmonary disease. Job#: [id number] OMAYRA
--- NOTE | 2018-03-11 17:34 | NUR ---
dr. kristine allen; consulted dr anderson and called dr anderson to inform of consultation.
--- NOTE | 2018-03-11 19:06 | NUR ---
Report received and walking rounds complete. Pt resting in bed and in no apparent distress. Pt on tele and 2LNC. Bedside commode used. All safety measures ensured, bed alarm on, and pt call huynh near. Pt encouraged to use call huynh for assistance.
[2018-03-11] MEDS: DONEPEZIL HCL 5 MG TAB PO SCH (21:25)
[2018-03-12] VITALS (7 sets, daily range): BP systolic 104–129; BP diastolic 63–75
[2018-03-12] MEDS: VANCOMYCIN 1GM/NS 250 ML 250 ML IV SCH ×2 (01:24→14:00)
[2018-03-12] MEDS: CEFEPIME 1GM/NS 0.9% 50 ML 50 ML IV SCH ×3 (01:24→16:58)
[2018-03-12 05:03] LABS: BASOPHILS % 0.9 % (0.0-1.0); EOSINOPHILS # (AUTO) 0.1 (0.0-0.4); HEMATOCRIT 38.2 % (34.2-44.1); HEMOGLOBIN 12.6 g/dL (12.0-16.0); LYMPHOCYTES # (AUTO) 0.9 (1.0-3.2); LYMPHOCYTES % 21.1 % (18.0-39.1); MEAN CORPUSCULAR HEMOGLOBIN 33.9 pg (28-32); MEAN CORPUSCULAR VOLUME 102.7 fL (81-99); MONOCYTES # (AUTO) 0.5 (0.2-0.8); MONOCYTES % 11.8 % (4.4-11.3); NEUTROPHILS # (AUTO) 2.8 (2.1-6.9); NEUTROPHILS % 63.7 % (38.7-80.0); PLATELET COUNT 56 x10e3/uL (140-360); RED BLOOD COUNT 3.72 x10e6/uL (3.6-5.1); RED CELL DISTRIBUTION WIDTH 15.2 % (11.7-14.4)
[2018-03-12 05:23] LABS: ANION GAP 17.6 mmol/L (8-16); BLOOD UREA NITROGEN 25 mg/dL (7-26); BUN/CREATININE RATIO 32 (6-25); CALCIUM 9.2 mg/dL (8.4-10.2); CARBON DIOXIDE 26 mmol/L (22-29); CHLORIDE 97 mmol/L (98-107); CREATININE, SERUM 0.79 mg/dL (0.57-1.11); EST GLOMERULAR FILTRATION RATE > 60 ML/MIN (60-); GLUCOSE 112 mg/dL (74-118); POTASSIUM 3.6 mmol/L (3.5-5.1); SODIUM 137 mmol/L (136-145)
[2018-03-12] MEDS: FUROSEMIDE INJ 10 MG/ML 2 ML VIAL IV SCH ×2 (06:14→17:20)
--- NOTE | 2018-03-12 06:54 | NUR ---
handoff report and walking rounds with outgoing retail shift leader nurse.
--- NOTE | 2018-03-12 06:57 | NUR ---
report given to oncoming nurse and walking rounds complete.
[2018-03-12] MEDS: DULOXETINE HCL 30 MG DELAYED RELEASE PO SCH (08:52)
[2018-03-12] MEDS: CARVEDILOL 3.125 MG TAB PO SCH ×2 (08:52→16:59)
[2018-03-12] MEDS: SPIRONOLACTONE 25 MG TAB PO SCH (08:52)
[2018-03-12] MEDS: PANTOPRAZOLE SOD 40 MG TABEC PO SCH (08:53)
[2018-03-12] MEDS: POTASSIUM CHLORIDE 20 MEQ TAB CR PO SCH (08:53)
[2018-03-12] MEDS: SILVER SULFADIAZINE 50GM CREAM TOP SCH ×2 (08:53→16:59)
--- NOTE | 2018-03-12 12:40 | NUR ---
Dr. Ayala rounding; per Dr. Ayala, she is okay to discharge tomorrow.
--- NOTE | 2018-03-12 13:03 | Progress Note ---
DATE: March 12, 2018 SUBJECTIVE: Patient seen at bedside. Doing better. Decreased pain and swelling to the left lower extremity. Denies any history of fever, chills, nausea, or vomiting. OBJECTIVE VITAL SIGNS: Afebrile, pulse rate 76, respirations 19, blood pressure 114/67, O2 saturation 97%. EXTREMITIES: Still a lot of swelling to the left lower extremity and cellulitis. Negative foul smell. Ulceration to the dorsal aspect of left foot seems to be healing. Still some fibrotic tissue. No tendon or bone exposed. LABS: Noted. White blood cell count 4.41. ASSESSMENT: Grade II ulcer left foot, with edema and cellulitis. PLAN: We will continue IV antibiotics such as vancomycin. Continue local wound care. Continue IV cefepime. Patient will be seen tomorrow morning. If better, she will be discharged if okay with Dr. Zoltan Hussein. Job#: [id number] KANE
--- NOTE | 2018-03-12 16:35 | Progress Note ---
DATE: March 12, 2018 CARDIOLOGY PROGRESS NOTE SUBJECTIVE: No new complaints. OBJECTIVE VITAL SIGNS: Temperature 97.2, heart rate 76, respiratory rate 19, blood pressure 114/67, O2 sat 97% on nasal cannula. GENERAL: No acute distress, alert. NECK: No JVD. CHEST: Clear to auscultation. CARDIOVASCULAR: Regular rate and rhythm. Normal S1 and S2. Holosystolic ejection murmur in left lower sternal border. ABDOMEN: Soft, nontender. EXTREMITIES: No edema. Left foot wound with improving erythema surrounding. CARDIOVASCULAR MEDICATIONS: Reviewed. Patient is on cefepime, spironolactone, furosemide, KCl, lactulose, and status post vancomycin, on hold for elevated levels. LABORATORY DATA: White blood cells 4.4, hemoglobin 12.6, platelets 56. Creatinine 0.7, potassium 3.6, vancomycin 26.8. ASSESSMENT 1. Left foot wound and cellulitis. 2. Severe sgfcw-zo-jadkdap right ventricular systolic heart failure. 3. Severe tricuspid regurgitation. 4. Pulmonary hypertension. 5. Liver cirrhosis. 6. Hepatitis C viral infection. 7. Suspected chronic obstructive pulmonary disease. RECOMMENDATIONS 1. Volume status euvolemic at this point. 2. Continue current cardiovascular medications. 3. Outpatient elevation for pulmonary hypertension in the setting of liver cirrhosis and possible intrinsic lung disease. Differential diagnosis includes hepatopulmonary syndrome versus COPD associated secondary pulmonary hypertension. 4. Antibiotics. Job#: [id number] ZAHRAA
--- NOTE | 2018-03-12 17:23 | Consultation ---
DATE OF CONSULTATION: March 12, 2018 REASON FOR CONSULTATION: Infection of the foot. HISTORY OF PRESENT ILLNESS: This patient who is a 67-year-old female. She was admitted on March 06, 2018. I was asked to see her today, February. The patient is a very pleasant 67-year-old white female, history of hepatitis C, perhaps also liver cirrhosis, COPD, and anxiety. She comes in with an ulcer on her foot that started a few days, so she came here after wearing tight socks. Patient was admitted, started on IV vancomycin and IV cefepime. She was seen by podiatry. I was asked to see her today for recommendations in terms of antibiotics. The patient who is currently lying in bed comfortably. The patient said that her foot is looking better since she came here. PAST MEDICAL HISTORY: Hepatitis B but her hepatitis C antibody came back positive. The viral load is still pending. PAST SURGICAL HISTORY: She denies. ALLERGIES: NKA. SOCIAL HISTORY: She denies smoking, drug abuse, alcohol abuse. She used to smoke. She also has history of COPD and hepatitis B according to the notes as I mentioned. Her cultures are negative. Her sodium 134, potassium 3.7, creatinine 0.75 but her bilirubin is 3.5. PHYSICAL EXAMINATION GENERAL: She is currently alert, oriented, does not seem to be in acute distress. VITALS: Stable. Afebrile. HEENT: She does not appear icteric. NECK: Supple. CHEST: Clear. HEART: S1 and S2. There is no murmur. ABDOMEN: Soft. EXTREMITIES: She does have some erythema and open ulcer noted on the dorsal aspect of the foot. IMPRESSION 1. Infection of the foot. Can switch to oral doxycycline and Cipro plus wound care. 2. Hepatitis C. To be followed as an outpatient. 3. History of hepatitis B. Follow up as an outpatient. 4. We will follow. Job#: [id number] LPA
[2018-03-12] MEDS: DONEPEZIL HCL 5 MG TAB PO SCH (21:27)
[2018-03-13] VITALS: BP 112/84
[2018-03-13] MEDS: CEFEPIME 1GM/NS 0.9% 50 ML 50 ML IV SCH ×2 (01:16→09:44)
[2018-03-13 04:00] VITALS: BP 115/63
[2018-03-13 05:24] LABS: BASOPHILS % 0.8 % (0.0-1.0); EOSINOPHILS # (AUTO) 0.1 (0.0-0.4); EOSINOPHILS % 1.4 % (0.0-6.0); HEMATOCRIT 39.6 % (34.2-44.1); HEMOGLOBIN 13.1 g/dL (12.0-16.0); LYMPHOCYTES % 19.2 % (18.0-39.1); MEAN CORPUSCULAR HEMOGLOBIN 34.2 pg (28-32); MEAN CORPUSCULAR HGB CONC 33.1 g/dL (31-35); MEAN CORPUSCULAR VOLUME 103.4 fL (81-99); MONOCYTES # (AUTO) 0.6 (0.2-0.8); MONOCYTES % 12.6 % (4.4-11.3); NEUTROPHILS # (AUTO) 3.3 (2.1-6.9); NEUTROPHILS % 65.4 % (38.7-80.0); PLATELET COUNT 58 x10e3/uL (140-360); RED BLOOD COUNT 3.83 x10e6/uL (3.6-5.1); RED CELL DISTRIBUTION WIDTH 15.4 % (11.7-14.4)
[2018-03-13 05:39] LABS: ANION GAP 15.7 mmol/L (8-16); BLOOD UREA NITROGEN 26 mg/dL (7-26); BUN/CREATININE RATIO 33 (6-25); CALCIUM 9.3 mg/dL (8.4-10.2); CARBON DIOXIDE 28 mmol/L (22-29); CHLORIDE 98 mmol/L (98-107); CREATININE, SERUM 0.78 mg/dL (0.57-1.11); EST GLOMERULAR FILTRATION RATE > 60 ML/MIN (60-); GLUCOSE 117 mg/dL (74-118); POTASSIUM 3.7 mmol/L (3.5-5.1); SODIUM 138 mmol/L (136-145)
[2018-03-13] MEDS: FUROSEMIDE INJ 10 MG/ML 2 ML VIAL IV SCH (06:15)
--- NOTE | 2018-03-13 07:27 | NUR ---
report given to oncoming nurse and walking rounds complete.
[2018-03-13 07:48] VITALS: BP 101/70
[2018-03-13 08:10] VITALS: BP 101/70
[2018-03-13] MEDS: SPIRONOLACTONE 25 MG TAB PO SCH (09:44)
[2018-03-13] MEDS: PANTOPRAZOLE SOD 40 MG TABEC PO SCH (09:44)
[2018-03-13] MEDS: POTASSIUM CHLORIDE 20 MEQ TAB CR PO SCH (09:44)
[2018-03-13] MEDS: DULOXETINE HCL 30 MG DELAYED RELEASE PO SCH (09:44)
[2018-03-13] MEDS: SILVER SULFADIAZINE 50GM CREAM TOP SCH (09:44)
--- NOTE | 2018-03-13 10:27 | Progress Note ---
DATE: March 13, 2018 SUBJECTIVE: Patient seen at bedside, doing significantly better. Decreased swelling and redness to the left lower extremity. Denying any history of fever, chills, nausea or vomiting. OBJECTIVE: Vitals: Afebrile. Pulse 80, respirations 21, blood pressure 101/70. O2 saturation 98%. Labs: White blood cells 5.06, hemoglobin 13.1, hematocrit 39.6 with a platelet count of 58. Ulceration to the dorsal aspect of left foot continues to improve. Decreased edema and decreased cellulitis. No foul smell. Ulcer is approximately 1 x 2 cm in diameter. ASSESSMENT: Grade-2 ulcer, left foot. Resolving cellulitis with edema. PLAN: Okay to be discharged on doxycycline orally. Continue applying Silvadene to the affected area. Patient is to follow up within a couple of days in the office. Job#: [id number]
[2018-03-13 11:42] VITALS: BP 110/72
--- NOTE | 2018-03-13 14:27 | Progress Note ---
DATE: March 13, 2018 CARDIOLOGY PROGRESS NOTE SUBJECTIVE: No new complaints. OBJECTIVE VITAL SIGNS: Temperature of 96.8, heart rate 88, respiratory rate 19, blood pressure 110/72, O2 sat 98% at room air. GENERAL: In no acute distress. Alert. NECK: No JVD. CHEST: Clear to auscultation. CARDIOVASCULAR: Regular rate and rhythm. Normal S1 and S2. Systolic ejection murmur. ABDOMEN: Soft, nontender. EXTREMITIES: No edema. Erythema to the left foot and wound continue to improve. CARDIOVASCULAR MEDICATIONS: Reviewed. 1. Furosemide 20 mg b.i.d. 2. KCl 40 mEq daily. 3. Spironolactone 50 mg daily. STUDIES: Reviewed. Creatinine is 0.70, potassium 3.7, bicarbonate 28. Hemoglobin 13.1, white blood cells 5.06, platelets 58. INR 1.26. AST 22, ALT 17, alk phos 45. ASSESSMENT 1. Severe tricuspid regurgitation. 2. Severe kjyyv-zt-kivktgs systolic right-sided heart failure. 3. Chronic obstructive pulmonary disease. 4. Pulmonary hypertension. 5. Left foot cellulitis and wound, improving. RECOMMENDATIONS 1. Continue current cardiovascular medications. 2. Outpatient followup from a cardiopulmonary standpoint. Job#: [id number] EV
[2018-03-13] MEDS ORDERED: DOXYCYCLINE HY100 MG PO (14:58)
[2018-03-13] MEDS ORDERED: CIPRO500 MG PO (14:58)
[2018-03-13] MEDS ORDERED: LASIX20 MG PO (15:01)
[2018-03-13] MEDS ORDERED: K DUR10 MEQ PO (15:02)
[2018-03-13] MEDS ORDERED: SILVADENE20 GM TOP (15:03)
[2018-03-13] MEDS ORDERED: PANTOPRAZOLE SO40 MG PO (15:04)
[2018-03-13] MEDS ORDERED: ULTRAM50 MG PO (15:05)
--- NOTE | 2018-03-13 15:14 | Discharge Summary ---
CONSULTATIONS: Dr. Holbrook, astronautical engineer, Dr. Kennedy, infectious disease, Dr. Cooper, etl lead, Dr. Giovanni Gaines, rn diabetes educator. PROCEDURE: Bedside incision and drainage for left foot cellulitis done by astronautical engineer. FINAL DIAGNOSIS: Left foot cellulitis with ulcer, improved. OTHER DIAGNOSES 1. Right ankle edema, resolved. 2. Chronic thrombocytopenia. 3. Hepatitis C virus infection with cirrhosis by history. 4. Hypertension by history. 5. Chronic obstructive pulmonary disease by history. 6. Right ventricular congestive heart failure on echocardiogram with normal left ventricular ejection fraction. 7. Anxiety and depression by history. HOSPITAL COURSE: A 67-year-old female was admitted from ER with complaints of unbearable pain in her left foot with ulceration and swelling on the dorsum. The patient reportedly was not on antibiotics as an outpatient by her PCP, Dr. Zoltan Hussein, and did not respond. She was afebrile. Did not have any leukocytosis, but her foot looked erythematous with overlying black eschar and ulcerated area. For that, a consult was requested with Dr. Ayala, and Dr. Holbrook was covering. He recommended continuation of IV antibiotics. X-ray did not show any bony involvement. The patient was planned for discharge, but the ulceration was persisting. Dr. Ayala, astronautical engineer, recommended continuation of IV antibiotics. The patient's discharge was kept on hold. Dr. Kennedy, infectious disease specialist was consulted. He recommended continuation of Zosyn and vancomycin, but vancomycin trough was high. He recommended discharging the patient with oral doxycycline and ciprofloxacin. The patient's ulceration and cellulitis is improved now. She was recommended an echocardiogram for leg swelling. Dr. Cooper was consulted. He found her left ventricular ejection fraction normal, but right ventricular ejection fraction is low likely secondary to her cirrhotic liver disease. He recommended followup as an outpatient. Dr. Giovanni Gaines, rn diabetes educator was consulted. He recommended followup as an outpatient. The patient has a history of hepatitis C virus infection. She reportedly was treated in the past, but had hep C virus antibody positive on an echo. CARLOS is still pending. The patient was otherwise uneventful. She was to go home today. The patient is discharged home with instructions. PHYSICAL EXAMINATION VITALS: BP 110/72, pulse 80, temp 96.8, respirations 19, SpO2 98% on room air. GENERAL: Alert and not in acute distress. HEENT: No pallor. No icterus. Oral mucosa moist. NECK: No JVD. No carotid bruit. No lymphadenopathy or thyromegaly. HEART: S1 and S2 regular. No murmurs. LUNGS: Clear to auscultation. ABDOMEN: Soft and nontender. No palpable mass. EXTREMITIES: Left foot ulceration improved. Edema is resolving. Right ankle edema has resolved. NEUROLOGICAL: Motor grossly good on both sides. LAB DATA: CBC: WBC 5.06, hemoglobin 13, hematocrit 39, and platelets 58,000. MCV 103, RDW 15. Neutrophils 65, lymphocytes 19. PT 16.9, INR 1.26. Chemistry panel: Sodium 138, potassium 3.7, chloride 90, CO2 28, anion gap 12, BUN 26, creatinine 0.78, glucose 117. Calcium 9.3. Total bilirubin 2.5, direct bilirubin 1.8, AST 22, ALT 17, alk phos 45, ammonia 36. CRP 12.1. BNP 1113. Total protein 5.8, albumin 3.4, globulin 2.4. Folate 19. TSH 1.64. Urinalysis negative for glucose, protein, ketones, leukocyte esterase, rbcs-0-5, wbcs 0-5. 3.1 on March 08, 2018. Went up to 26.8 on March 11, 2018. Hepatitis C antibody more than 11. Hepatitis C virus RNA in progress. MICROBIOLOGY DATA: Blood culture no growth in 5 days. RADIOLOGICAL DATA: X-ray of left foot with no fracture and no bony involvement. Ultrasound of the abdomen complete course noted liver consolidation or cirrhosis. No focal mass. Trace ascites. Gallbladder is not visualized. Venous Doppler of the lower extremity preliminary report not available. Arterial Doppler of bilateral lower extremities with mild peripheral vascular disease bilaterally. No stenosis. CT of chest with IV contrast with no evidence of pulmonary embolism. Cardiomegaly and interstitial edema. Cirrhosis with portal hypertension and mild volume ascites in the upper abdomen. Echocardiogram with left ventricular size normal. There is moderate concentric LVH. Left ventricular systolic function normal with ejection fraction of 65% to 70%. Diastolic filling pattern indicates impaired relaxation. Right ventricle is severely enlarged measuring more than 4.5 cm. Right ventricular systolic function is moderately impaired. The right ventricular septum is flattened in diastole and systole, which is consistent with right ventricular volume of lower lobes. Right ventricular systolic function is slightly impaired. Right atrium appears to be enlarged. Mild mitral valve prolapse. Severe tricuspid regurgitation present. Right ventricular systolic pressure is 50 mmHg. Small generalized pericardial effusion present. MEDICATIONS ON DISCHARGE: Please refer to the med reconciliation sheet. DIET: Heart-healthy diet. ACTIVITY: As tolerated. INSTRUCTIONS ON DISCHARGE: Continue with medications as per discharge recommendations. Follow up with astronautical engineer, rn diabetes educator, etl lead. Will follow up with Dr. Zoltan Hussein in 1 week. CBC and CMP in 1 week. Monitor BP, pulse at home. Wound care as per astronautical engineer's recommendation at home. MALLORY OKCH MD Job#: [id number] [place]
[2018-03-13 15:31] VITALS: BP 102/62
--- NOTE | 2018-03-13 16:05 | NUR ---
Discharge instructions given to patient and , both verbalized understanding. Patient alert and oriented. IV discontinued at this time, catheter in tact, and small dressing applied. Patient being escorted from floor in wheelchair to personal auto for to drive home.
== END 2018-03-13 16:11 | disposition home or self-care (01) | DRG 603 ==
LOC: ER 14:07 → ERHOLD 21:54 → IMCU 22:06 → OBSVTOIN 03-10 19:14
PROVIDERS: ADMIT Internal Medicine; ATTEND Internal Medicine
DX: L03.116 Cellulitis of left lower limb (principal); E87.6 Hypokalemia; L97.519 Non-pressure chronic ulcer of other part of right foot with unspecified severity; D69.6 Thrombocytopenia, unspecified; I10 Essential (primary) hypertension; B18.2 Chronic viral hepatitis C; I11.0 Hypertensive heart disease with heart failure; I50.814 Right heart failure due to left heart failure
CPT/HCPCS: 36415; 71260; 76700; 80048; 80053; 80202; 81001; 82140; 82248; 82746; 83605; 83735; 83880; 84443; 85025; 85610; 85651; 86140; 86803; 87040; 87521; 93005; 93306; 93926; 93970; 99284; G0378; J0692; J1940; J2270; J2405; J3370; J3480; J7030; J7050; Q9967

== ENCOUNTER 2018-03-18 20:18 | Emergency (ER) | payer MEDICARE ==
[~2018-03-18] VITALS: Ht 157.5 cm; Wt 70.8 kg
[~2018-03-18 20:18] MED LIST: ARICEPT5 MG PO; CARVEDILOL3.125 MG PO; CIPRO500 MG PO; CYMBALTA30 MG PO; DOXYCYCLINE HY100 MG PO; FUROSEMIDE40 MG PO; K DUR10 MEQ PO; LASIX20 MG PO; OMEPRAZOLE40 MG PO; PANTOPRAZOLE SO40 MG PO; SILVADENE20 GM TOP; SPIRONOLACTONE50 MG PO; ULTRAM50 MG PO
--- OUTSIDE RECORDS SUMMARY | 2018-03-18 20:21 | XMS REPORT | Clinical Summary ---
Author Author [employer] Organization [employer] Address Unknown Phone Unavailable Care Team Providers Care Patient Support Tech Name Role Phone Asked, No Pcp PCP [...] 05/23/2017 Pre-Admit Pre-Admission Testing Testing Appointment after 03/17/2017 Family History Medical History Relation Name Comments [...] CHOLANGIOGRAM Routine 05/27/2017 INTRAOPERATIVE 12:05 PM CDT VT AN ELECTIVE Routine 05/27/2017 ENDOTRACHEAL AIRWAY 10:51 [...] 05/23/2017 Preoperative testing 2:36 PM CDT after 03/17/2017 Results * Surgical pathology request (05/27/2017 2:47 PM CDT) [facility] DEPARTMENT OF PATHOLOGY AND GENOMIC MEDICINE Surgical pathology report See link below for PDF Lab [facility] DEPARTMENT OF Report PATHOLOGY AND GENOMIC MEDICINE Result status This is Final Report to [facility] DEPARTMENT OF [id number] PATHOLOGY AND GENOMIC MEDICINE Performing Organization Address City/State/Zipcode Phone Number [facility] DEPARTMENT OF [address] [place] [address] PATHOLOGY AND GENOMIC MEDICINE * [place] Cholangiogram [...] duodenum. IMPRESSION: No evidence of retained stones. [id number] . Procedure Note Interface, Radiology Results Incoming [...] duodenum. IMPRESSION: No evidence of retained stones. [id number] . Performing Organization Address City/State/[facility] Phone Number [facility] [address] [place] [address] * XR Chest 2 Vw (05/23/2017 4:03 [...] the chest appear be within normal limits. [facility]-[id number] Procedure Note Interface, Radiology Results Incoming - [...] the chest appear be within normal limits. [facility]-[id number] Performing Organization Address City/[facility]/Zipcode Phone Number [facility] [address] [place] [address] * Estimated GFR (05/23/2017 3:40 PM CDT) GFR Non Af Amer 84 mL/min/1.73 m2 [facility] DEPARTMENT OF PATHOLOGY AND GENOMIC MEDICINE GFR Af Amer >90 mL/min/1.73 m2 [facility] DEPARTMENT OF Comment: PATHOLOGY [...] specimen Performing Organization Address City/State/Zipcode Phone Number [facility] DEPARTMENT [place] [address] [place] [address] PATHOLOGY AND GENOMIC MEDICINE * CBC with platelet and differential (05/23/2017 3:40 PM CDT) WBC 5.8 4.2 - 11.0 k/uL [facility] DEPARTMENT OF PATHOLOGY AND GENOMIC MEDICINE RBC 4.18 4.04 - 5.86 m/uL [facility] DEPARTMENT OF PATHOLOGY AND GENOMIC MEDICINE HGB 14.4 11.5 - 15.3 g/dL [facility] DEPARTMENT OF PATHOLOGY AND GENOMIC MEDICINE HCT 42.1 34.0 - 45.0 % [facility] DEPARTMENT OF PATHOLOGY AND GENOMIC MEDICINE MCV 100.7 (H) 80.0 - 98.0 fL [facility] DEPARTMENT OF PATHOLOGY AND GENOMIC MEDICINE MCH 34.4 (H) 27.0 - 34.0 pg [facility] DEPARTMENT OF PATHOLOGY AND GENOMIC MEDICINE MCHC 34.2 31.5 - 36.5 g/dL [facility] DEPARTMENT OF PATHOLOGY AND GENOMIC MEDICINE RDW - SD 48.7 37.0 - 51.0 fL [facility] OF PATHOLOGY AND GENOMIC MEDICINE MPV 12.4 (H) 7.4 - 10.4 fL [facility] OF PATHOLOGY AND GENOMIC MEDICINE Platelet count 53 (L) 150 - 400 k/uL [facility] DEPARTMENT PATHOLOGY AND GENOMIC MEDICINE Nucleated RBC 0.00 /100 WBC [facility] DEPARTMENT OF PATHOLOGY AND GENOMIC MEDICINE Neutrophils 80.6 (H) 36.0 - 66.0 % [facility] DEPARTMENT PATHOLOGY AND GENOMIC MEDICINE Lymphocytes 11.6 (L) 24.0 - 44.0 % [facility] DEPARTMENT OF PATHOLOGY AND GENOMIC MEDICINE Monocytes 4.9 0.0 - 6.0 % [facility] DEPARTMENT OF PATHOLOGY AND GENOMIC MEDICINE Eosinophils 2.1 0.0 - 6.0 % [facility] PATHOLOGY AND GENOMIC MEDICINE Basophils 0.3 0.0 - 1.2 % [facility] PATHOLOGY AND GENOMIC MEDICINE Immature granulocytes 0.5 0.0 - 1.0 % [facility] DEPARTMENT OF PATHOLOGY AND GENOMIC MEDICINE Specimen Blood Performing Organization Address City/State/Zipcode Phone Number [place] [address] [place] [address] PATHOLOGY AND [email or web address] MEDICINE * Comprehensive metabolic panel (05/23/2017 3:40 PM CDT) Sodium 141 135 - 150 mEq/L [facility] DEPARTMENT OF PATHOLOGY AND GENOMIC MEDICINE Potassium 3.7 3.5 - 5.0 mEq/L [facility] DEPARTMENT OF PATHOLOGY AND GENOMIC MEDICINE Chloride 105 100 - 109 mEq/L [facility]PART[facility] OF PATHOLOGY AND GENOMIC MEDICINE CO2 29 24 - 32 mmol/L [facility] DEPARTMENT OF PATHOLOGY AND GENOMIC MEDICINE Anion gap 7 7 - 15 mEq/L [facility] DEPARTMENT OF Comment: PATHOLOGY AND Starting from June [facility] , anion gap calculation no longer incorporates potassium. Please note the change. BUN 19 (H) 7 - 18 mg/dL [facility] DEPARTMENT OF PATHOLOGY AND GENOMIC MEDICINE Creatinine 0.7 (L) 0.8 - 1.5 mg/dL [facility] DEPARTMENT OF PATHOLOGY AND GENOMIC MEDICINE Glucose 86 65 - 100 mg/dL [facility] DEPARTMENT OF PATHOLOGY AND GENOMIC MEDICINE Calcium 8.7 8.6 - 10.7 mg/dL [facility] DEPARTMENT OF PATHOLOGY AND GENOMIC MEDICINE Protein 7.3 6.3 - 8.2 g/dL [facility] DEPARTMENT OF PATHOLOGY AND GENOMIC MEDICINE Albumin 3.5 3.2 - 5.0 g/dL [facility] DEPARTMENT OF PATHOLOGY AND GENOMIC MEDICINE A/G ratio 0.9 0.7 - 3.8 [facility] DEPARTMENT OF PATHOLOGY AND GENOMIC MEDICINE Alkaline phosphatase 71 30 - 120 U/L [facility] DEPART[facility] OF PATHOLOGY AND GENOMIC MEDICINE AST 31 15 - 37 U/L [facility] DEPARTMENT OF PATHOLOGY AND GENOMIC MEDICINE ALT 24 (L) 30 - 65 U/L [facility] DEPARTMENT OF PATHOLOGY AND GENOMIC MEDICINE Total bilirubin 1.2 0.2 - 1.2 mg/dL [facility] DEPARTMENT OF PATHOLOGY AND GENOMIC MEDICINE Specimen Plasma specimen Performing Organization Address City/[facility] Cent[facility]ode Phone Number [place] [address] [place] [address] PATHOLOGY AND GENOMIC MEDICINE * ECG Pre/Post Op (05/23/2017 2:36 PM CDT) Ventricular rate 73 [facility] Atrial rate 73 [facility] VT interval 136 [facility] QRSD interval 84 [facility] QT interval 402 [facility] QTC interval 442 [facility] P axis 1 26 [facility] QRS axis 1 10 [facility] T wave axis 0 [facility] EKG impression Normal sinus rhythm-ST & T [facility] wave abnormality, consider anterolateral ischemia-Prolonged QT-Abnormal ECG-No previous ECGs available- Performing Organization Address City/State/[facility] Cent[facility] Phone Number [facility] [address] [place] [address] after 03/17/2017 Insurance Payer Benefit Subscriber ID Type Phone Address Plan / Group HUMANA MEDICARE HUMANA xxxxxxxxx PPO MEDICARE PPO/PFFS/[facility] Advance Directives Patient has advance care planning documents on file. For more information, zacarias palumbo contact: Luis Morgan [address] [place] [address]
[2018-03-18 22:26] LABS: BASOPHILS % 0.5 % (0.0-1.0); EOSINOPHILS # (AUTO) 0.1 (0.0-0.4); EOSINOPHILS % 1.1 % (0.0-6.0); HEMATOCRIT 39.7 % (34.2-44.1); HEMOGLOBIN 13.2 g/dL (12.0-16.0); MEAN CORPUSCULAR HEMOGLOBIN 34.3 pg (28-32); MEAN CORPUSCULAR HGB CONC 33.2 g/dL (31-35); MEAN CORPUSCULAR VOLUME 103.1 fL (81-99); MONOCYTES # (AUTO) 0.6 (0.2-0.8); MONOCYTES % 8.9 % (4.4-11.3); NEUTROPHILS # (AUTO) 4.7 (2.1-6.9); NEUTROPHILS % 72.9 % (38.7-80.0); PLATELET COUNT 60 x10e3/uL (140-360); RED BLOOD COUNT 3.85 x10e6/uL (3.6-5.1); RED CELL DISTRIBUTION WIDTH 15.6 % (11.7-14.4)
[2018-03-18 22:35] LABS: INR 1.16; PROTHROMBIN TIME 15.8 seconds (11.9-14.5)
[2018-03-18 22:36] LABS: PARTIAL THROMBOPLASTIN TIME 24.7 seconds (23.8-35.5)
[2018-03-18 22:45] LABS: ALANINE AMINOTRANSFERASE 24 IU/L (0-55); ALBUMIN 3.7 g/dL (3.5-5.0); ALBUMIN/GLOBULIN RATIO 1.3 (0.8-2.0); ALKALINE PHOSPHATASE 54 IU/L (40-150); ANION GAP 16.8 mmol/L (8-16); BLOOD UREA NITROGEN 31 mg/dL (7-26); BUN/CREATININE RATIO 36 (6-25); CALCIUM 9.2 mg/dL (8.4-10.2); CARBON DIOXIDE 20 mmol/L (22-29); CHLORIDE 103 mmol/L (98-107); CREATININE, SERUM 0.87 mg/dL (0.57-1.11); EST GLOMERULAR FILTRATION RATE > 60 ML/MIN (60-); GLUCOSE 103 mg/dL (74-118); POTASSIUM 3.8 mmol/L (3.5-5.1); SODIUM 136 mmol/L (136-145)
[2018-03-18 23:14] LABS: CREATINE KINASE 32 IU/L (29-168)
[2018-03-18] MEDS ORDERED: METHYLPREDNISOLONE SOD SUCC 125 MG/2ML VIAL IV ONE (23:15)
[2018-03-18] MEDS ORDERED: SODIUM CHLORIDE 0.9% 1000ML 1,000 ML IV SCH (23:15)
--- NOTE | 2018-03-18 23:17 | Diagnostic Imaging Report ---
EXAMINATION: CHEST 2 VIEWS INDICATION: Difficulty breathing. COPD. COMPARISON: Chest CT 03/09/2018 and chest x-ray 02/09/2018 FINDINGS: AP and lateral views TUBES and LINES: None. LUNGS: Lungs are well inflated. Lungs are clear. There is no evidence of pneumonia or pulmonary edema. PLEURA: No pleural effusion or pneumothorax. HEART AND MEDIASTINUM: Enlarged pulmonary arteries again noted. Stable mild cardiomegaly. BONES AND SOFT TISSUES: There are degenerative changes in the thoracic spine. Soft tissues are unremarkable. UPPER ABDOMEN: No free air under the diaphragm. There are cholecystectomy clips. IMPRESSION: No acute thoracic abnormality. Stable cardiomegaly and enlarged pulmonary arteries. Signed by: DR. Jules Vega MD on 03/18/2018 11:13 PM
--- NOTE | 2018-03-19 03:48 | Diagnostic Imaging Report ---
EXAM: CT CHEST W INDICATION: Difficulty breathing. COPD COMPARISON: Chest CT 03/09/2018 TECHNIQUE: Multidetector CT scanning of the chest was performed. Coronal and sagittal multiplanar reformations were obtained. Dose modulation, iterative reconstruction, and/or weight based adjustment of the mA/kV was utilized to reduce the radiation dose to as low as reasonably achievable. P. E. protocol performed. IV Contrast: 90 cc Isovue-370 CTDIvol has been reviewed. It is below the limits set by the Radiation Protocol Committee (RPC). FINDINGS: LUNGS AND AIRWAYS: The trachea and major bronchi are unremarkable. Mild septal thickening. No consolidations. PLEURA: Trace left pleural effusion. HEART, MEDIASTINUM, VESSELS: The heart is enlarged. No abnormal pericardial effusion. Ectasia of the ascending thoracic aorta up to 4 cm. The main pulmonary artery is dilated to 4 cm. Limited contrast opacification of the pulmonary arteries past the segmental branches. UPPER ABDOMEN: Cirrhotic liver morphology. Cholecystectomy. Mild ascites. Splenomegaly, incompletely visualized. Multiple perisplenic varices. MUSCULOSKELETAL: No acute findings. IMPRESSION: 1. No significant change from 03/09/2018. 2. No evidence of a pulmonary embolism to the segmental level. 2. Cardiomegaly, mild interstitial edema, ectasia of the ascending thoracic aorta and dilation of the pulmonary arteries consistent with pulmonary hypertension. 3. Cirrhosis with portal hypertension and small volume ascites in the upper abdomen. Signed by: DR. Jules Vega MD on 03/19/2018 3:44 AM
[2018-03-19] MEDS ORDERED: SODIUM CHLORIDE 0.9% 500ML 500 ML IV ONE (04:30)
[2018-03-19 05:55] LABS: CLARITY,URINE CLEAR (CLEAR); COLOR,URINE YELLOW (YELLOW)
[2018-03-19 05:56] LABS: BILIRUBIN,URINE NEGATIVE (NEGATIVE); KETONES,URINE NEGATIVE (NEGATIVE); LEUKOCYTE ESTERASE ,URINE NEGATIVE (NEGATIVE); NITRITE,URINE NEGATIVE (NEGATIVE); PROTEIN,URINE DIPSTICK NEGATIVE (NEGATIVE); URINE UROBILINOGEN 1 mg/dL (0.2 - 1)
[2018-03-19 06:09] LABS: EPITHELIAL CELLS,URINE FEW /LPF; RBC,URINE 0-5 /HPF (0-5)
[2018-03-19 06:29] VITALS: BP 124/97
[2018-03-19] MEDS ORDERED: IOPAMIDOL 370 MG/ML 200 ML INFUS..BTL INJ ONE (07:21)
[2018-03-19] MEDS ORDERED: SODIUM CHLORIDE 0.9% 100 ML 100 ML ONE (07:21)
== END 2018-03-19 06:45 | disposition home or self-care (01) ==
LOC: ER 20:18
DX: R06.09 Other forms of dyspnea (principal)
CPT/HCPCS: 36415; 71046; 71260; 80053; 81001; 82550; 82553; 83880; 84484; 85025; 85379; 85610; 85730; 93005; 94640; 99284; J2930; J7030; J7040; Q9967

== ENCOUNTER 2018-03-20 19:17 | Emergency (ER) | payer MEDICARE ==
[~2018-03-20] VITALS: Ht 157.5 cm; Wt 70.8 kg
--- OUTSIDE RECORDS SUMMARY | 2018-03-20 19:20 | XMS REPORT | Clinical Summary ---
Author Author [employer] Organization [employer] Address Unknown Phone Unavailable Care Team Providers Care Atmospheric Physicist Name Role Phone Asked, No Pcp PCP [...] 05/23/2017 Pre-Admit Pre-Admission Testing Testing Appointment after 03/19/2017 Family History Medical History Relation Name Comments [...] CHOLANGIOGRAM Routine 05/27/2017 INTRAOPERATIVE 12:05 PM CDT ME AN ELECTIVE Routine 05/27/2017 ENDOTRACHEAL AIRWAY 10:51 [...] 05/23/2017 Preoperative testing 2:36 PM CDT after 03/19/2017 Results * Surgical pathology request (05/27/2017 2:47 PM CDT) [facility] OF PATHOLOGY AND GENOMIC MEDICINE Surgical pathology report See link below for PDF Lab [facility] DEPART[facility] OF Report PATHOLOGY AND GENOMIC MEDICINE Result status This is Final Report to [facility] DEPARTMENT OF [id number] PATHOLOGY AND GENOMIC MEDICINE Performing Organization Address City/State/Zipcode Phone Number [facility] DEPARTMENT OF [address] [place] [address] PATHOLOGY AND GENOMIC MEDICINE * [place] Cholangiogram [...] duodenum. IMPRESSION: No evidence of retained stones. [id number] . Procedure Note Interface, Radiology Results Incoming [...] duodenum. IMPRESSION: No evidence of retained stones. [id number] . Performing Organization Address City/State/[facility] Phone Number [facility] [address] [place] [address] * XR Chest 2 Vw (05/23/2017 4:03 [...] the chest appear be within normal limits. [facility]-[id number] Procedure Note Interface, Radiology Results Incoming - [...] the chest appear be within normal limits. [facility]-[id number] Performing Organization Address City/[facility]/Zipcode Phone Number [facility] [address] [place] [address] * Estimated GFR (05/23/2017 3:40 PM CDT) GFR Non Af Amer 84 mL/min/1.73 m2 [facility] DE[facility] OF PATHOLOGY AND GENOMIC MEDICINE GFR Af Amer >90 mL/min/1.73 m2 [facility] DEPARTMENT OF Comment: PATHOLOGY AND Chronic kidney [...] specimen Performing Organization Address City/State/Zipcode Phone Number [facility]PARTMENT [place] [address] [place] [address] PATHOLOGY AND GENOMIC MEDICINE * CBC with platelet and differential (05/23/2017 3:40 PM CDT) WBC 5.8 4.2 - 11.0 k/uL [facility] DE[facility] OF PATHOLOGY AND GENOMIC MEDICINE RBC 4.18 4.04 - 5.86 m/uL [facility] DEPARTMENT OF PATHOLOGY AND GENOMIC MEDICINE HGB 14.4 11.5 - 15.3 g/dL [facility] OF PATHOLOGY AND GENOMIC MEDICINE HCT 42.1 34.0 - 45.0 % [facility] DE[facility]MENT OF PATHOLOGY AND GENOMIC MEDICINE MCV 100.7 (H) 80.0 - 98.0 fL [facility] DE[facility]MENT OF PATHOLOGY AND GENOMIC MEDICINE MCH 34.4 (H) 27.0 - 34.0 pg [facility] DE[facility]MENT OF PATHOLOGY AND GENOMIC MEDICINE MCHC 34.2 31.5 - 36.5 g/dL [facility] DEPARTMENT OF PATHOLOGY AND GENOMIC MEDICINE RDW - SD 48.7 37.0 - 51.0 fL [facility] OF PATHOLOGY AND GENOMIC MEDICINE MPV 12.4 (H) 7.4 - 10.4 fL [facility] OF PATHOLOGY AND GENOMIC MEDICINE Platelet count 53 (L) 150 - 400 k/uL [facility] DEPARTMENT PATHOLOGY AND GENOMIC MEDICINE Nucleated RBC 0.00 /100 WBC [facility] DE[facility]MENT OF PATHOLOGY AND GENOMIC MEDICINE Neutrophils 80.6 (H) 36.0 - 66.0 % [facility]MENT PATHOLOGY AND GENOMIC MEDICINE Lymphocytes 11.6 (L) 24.0 - 44.0 % [facility] DE[facility]MENT OF PATHOLOGY AND GENOMIC MEDICINE Monocytes 4.9 0.0 - 6.0 % [facility] DE[facility]MENT OF PATHOLOGY AND GENOMIC MEDICINE Eosinophils 2.1 0.0 - 6.0 % [facility] PATHOLOGY AND GENOMIC MEDICINE Basophils 0.3 0.0 - 1.2 % [facility] PATHOLOGY AND GENOMIC MEDICINE Immature granulocytes 0.5 0.0 - 1.0 % [facility] DEPARTMENT OF PATHOLOGY AND GENOMIC MEDICINE Specimen Blood Performing Organization Address City/State/Zipcode Phone Number [place] [id number] [place] [address] PATHOLOGY AND [employer] MEDICINE * Comprehensive metabolic panel (05/23/2017 3:40 PM CDT) Sodium 141 135 - 150 mEq/L [facility] DEPARTMENT OF PATHOLOGY AND GENOMIC MEDICINE Potassium 3.7 3.5 - 5.0 mEq/L [facility] DEPARTMENT OF PATHOLOGY AND GENOMIC MEDICINE Chloride 105 100 - 109 mEq/L [facility] OF PATHOLOGY AND GENOMIC MEDICINE CO2 29 24 - 32 mmol/L [facility] OF PATHOLOGY AND GENOMIC MEDICINE Anion gap 7 7 - 15 mEq/L [facility] DEPARTMENT OF Comment: PATHOLOGY AND Starting from June [facility] , anion gap calculation no longer incorporates potassium. Please note the change. BUN 19 (H) 7 - 18 mg/dL [facility] DEPARTMENT OF PATHOLOGY AND GENOMIC MEDICINE Creatinine 0.7 (L) 0.8 - 1.5 mg/dL [facility] DEPARTMENT OF PATHOLOGY AND GENOMIC MEDICINE Glucose 86 65 - 100 mg/dL [facility] DEPARTMENT OF PATHOLOGY AND GENOMIC MEDICINE Calcium 8.7 8.6 - 10.7 mg/dL [facility] DEPARTMENT OF PATHOLOGY AND GENOMIC MEDICINE Protein 7.3 6.3 - 8.2 g/dL [facility] DEPARTMENT OF PATHOLOGY AND GENOMIC MEDICINE Albumin 3.5 3.2 - 5.0 g/dL [facility] DEPARTMENT OF PATHOLOGY AND GENOMIC MEDICINE A/G ratio 0.9 0.7 - 3.8 [facility] DEPARTMENT OF PATHOLOGY AND GENOMIC MEDICINE Alkaline phosphatase 71 30 - 120 U/L [facility] OF PATHOLOGY AND GENOMIC MEDICINE AST 31 15 - 37 U/L [facility] DEPARTMENT OF PATHOLOGY AND GENOMIC MEDICINE ALT 24 (L) 30 - 65 U/L [facility] DEPARTMENT OF PATHOLOGY AND GENOMIC MEDICINE Total bilirubin 1.2 0.2 - 1.2 mg/dL [facility] DEPARTMENT OF PATHOLOGY AND GENOMIC MEDICINE Specimen Plasma specimen Performing Organization Address City/[facility] Phone Number [place] [address] [place] [address] PATHOLOGY AND GENOMIC MEDICINE * ECG Pre/Post Op (05/23/2017 2:36 PM CDT) Ventricular rate 73 [facility] Atrial rate 73 [facility] ME interval 136 [facility] QRSD interval 84 [facility] QT interval 402 [facility] QTC interval 442 [facility] P axis 1 26 [facility] QRS axis 1 10 [facility] T wave axis 0 [facility] EKG impression Normal sinus rhythm-ST & T [facility] wave abnormality, consider anterolateral ischemia-Prolonged QT-Abnormal ECG-No previous ECGs available- Performing Organization Address City/State/[facility] Phone Number [facility] [address] [place] [address] after 03/19/2017 Insurance Payer Benefit Subscriber ID Type Phone Address Plan / Group HUMANA MEDICARE HUMANA xxxxxxxxx PPO MEDICARE PPO/PFFS/E [facility] Advance Directives Patient has advance care planning documents on file. For more information, zacarias palumbo contact: Luis Morgan [address] [place] [address]
[2018-03-20 22:38] LABS: CREATINE KINASE MB 1.8 ng/mL (0-5.0)
== END 2018-03-21 06:17 | disposition home or self-care (01) ==
LOC: ER 19:17
DX: R06.09 Other forms of dyspnea (principal); I10 Essential (primary) hypertension; I27.20 Pulmonary hypertension, unspecified; K74.60 Unspecified cirrhosis of liver
CPT/HCPCS: 36415; 82550; 82553; 84484; 93005; 99283

== ENCOUNTER 2018-05-19 18:19 | Emergency (ER) | payer MEDICARE ==
[~2018-05-19] VITALS: Ht 157.5 cm; Wt 70.8 kg
--- OUTSIDE RECORDS SUMMARY | 2018-05-19 18:22 | XMS REPORT | Clinical Summary ---
Author Author [employer] Address Unknown Phone Unavailable Care Team Providers Care Morning Nanny Name Role Phone Asked, No Pcp PCP [...] 05/23/2017 Pre-Admit Pre-Admission Testing Testing Appointment after 05/18/2017 Family History Medical History Relation Name Comments [...] 11/09/2001 COLON CANCER SCREENING 11/09/2001 SHINGLES VACCINES (#1) 11/09/2001 65+ PNEUMOCOCCAL VACCINE 11/09/2016 (1 of 2 - PCV13) PNEUMOCOCCAL 11/09/2016 POLYSACCHARIDE VACCINE AGE 65 AND OVER INFLUENZA VACCINE 10/12/2017 Procedures Comments Procedure Name Priority Date/Time Associated Diagnosis SURGICAL PATHOLOGY Routine 05/27/2017 REQUEST 2:47 PM CDT [place] CHOLANGIOGRAM Routine 05/27/2017 INTRAOPERATIVE 12:05 PM CDT [place] AN ELECTIVE Routine 05/27/2017 ENDOTRACHEAL AIRWAY 10:51 [...] 05/23/2017 Preoperative testing 2:36 PM CDT after 05/18/2017 Results * Surgical pathology request (05/27/2017 2:47 PM CDT) [facility] DEPARTMENT OF PATHOLOGY AND GENOMIC MEDICINE Surgical pathology report See link below for PDF Lab [facility] DEPARTMENT OF Report PATHOLOGY AND GENOMIC MEDICINE Result status This is Final Report to [facility] DEPARTMENT OF [id number] PATHOLOGY AND GENOMIC MEDICINE Performing Organization Address City/State/Zipcode Phone Number [facility] DEPARTMENT OF [address] [place] [address] PATHOLOGY AND GENOMIC MEDICINE * [place] Cholangiogram [...] duodenum. IMPRESSION: No evidence of retained stones. [id number] . Procedure Note Interface, Radiology Results Incoming [...] duodenum. IMPRESSION: No evidence of retained stones. [id number] . Performing Organization Address City/State/[facility] Mexicocode Phone Number [facility] [address] [place] [address] * XR Chest 2 Vw (05/23/2017 4:03 [...] the chest appear be within normal limits. [id number] Procedure Note Interface, Radiology Results Incoming - [...] the chest appear be within normal limits. [facility]-[id number] Performing Organization Address City/[facility]/Zipcode Phone Number [facility] [address] [place] [address] * Estimated GFR (05/23/2017 3:40 PM CDT) GFR Non Af Amer 84 mL/min/1.73 m2 [facility] DEPARTMENT OF PATHOLOGY AND GENOMIC MEDICINE GFR Af Amer >90 mL/min/1.73 m2 [facility] DEPARTMENT OF Comment: PATHOLOGY AND Chronic kidney [...] specimen Performing Organization Address City/State/Zipcode Phone Number [facility] [address] [place] [address]. [place] [address] PATHOLOGY AND GENOMIC MEDICINE * CBC with platelet and differential (05/23/2017 3:40 PM CDT) WBC 5.8 4.2 - 11.0 k/uL [facility] DEPARTMENT OF PATHOLOGY AND GENOMIC MEDICINE RBC 4.18 4.04 - 5.86 m/uL [facility] DEPARTMENT OF PATHOLOGY AND GENOMIC MEDICINE HGB 14.4 11.5 - 15.3 g/dL [facility] DEPARTMENT OF PATHOLOGY AND GENOMIC MEDICINE HCT 42.1 34.0 - 45.0 % [facility] DEPARTMENT OF PATHOLOGY AND GENOMIC MEDICINE MCV 100.7 (H) 80.0 - 98.0 fL [facility] DEPARTMENT OF PATHOLOGY AND GENOMIC MEDICINE MCH 34.4 (H) 27.0 - 34.0 pg [facility] DEPARTMENT OF PATHOLOGY AND GENOMIC MEDICINE MCHC 34.2 31.5 - 36.5 g/dL [facility] DEPARTMENT OF PATHOLOGY AND GENOMIC MEDICINE RDW - SD 48.7 37.0 - 51.0 fL [facility] DEPARTMENT OF PATHOLOGY AND GENOMIC MEDICINE MPV 12.4 (H) 7.4 - 10.4 fL [facility] DEPARTMENT OF PATHOLOGY AND GENOMIC MEDICINE Platelet count 53 (L) 150 - 400 k/uL [facility] DEPARTMENT OF PATHOLOGY AND GENOMIC MEDICINE Nucleated RBC 0.00 /100 WBC [facility] DEPARTMENT OF PATHOLOGY AND GENOMIC MEDICINE Neutrophils 80.6 (H) 36.0 - 66.0 % [facility] DEPARTMENT OF PATHOLOGY AND GENOMIC MEDICINE Lymphocytes 11.6 (L) 24.0 - 44.0 % [facility] DEPARTMENT OF PATHOLOGY AND GENOMIC MEDICINE Monocytes 4.9 0.0 - 6.0 % [facility] DEPARTMENT OF PATHOLOGY AND GENOMIC MEDICINE Eosinophils 2.1 0.0 - 6.0 % [facility] DEPARTMENT OF PATHOLOGY AND GENOMIC MEDICINE Basophils 0.3 0.0 - 1.2 % [facility] DEPARTMENT OF PATHOLOGY AND GENOMIC MEDICINE Immature granulocytes 0.5 0.0 - 1.0 % [facility] DEPARTMENT OF PATHOLOGY AND GENOMIC MEDICINE Specimen Blood Performing Organization Address City/State/Zipcode Phone Number [place] [address] [place] [address] PATHOLOGY AND GENOMIC MEDICINE * Comprehensive metabolic panel (05/23/2017 3:40 PM CDT) Sodium 141 135 - 150 mEq/L [facility] DEPARTMENT OF PATHOLOGY AND GENOMIC MEDICINE Potassium 3.7 3.5 - 5.0 mEq/L [facility] DEPARTMENT OF PATHOLOGY AND GENOMIC MEDICINE Chloride 105 100 - 109 mEq/L [facility] DEPARTMENT OF PATHOLOGY AND GENOMIC MEDICINE CO2 29 24 - 32 mmol/L [facility] DEPARTMENT OF PATHOLOGY AND GENOMIC MEDICINE Anion gap 7 7 - 15 mEq/L [facility] DEPARTMENT OF Comment: PATHOLOGY AND Starting from June [employer] , anion gap calculation no longer incorporates potassium. Please note the change. BUN 19 (H) 7 - 18 mg/dL [facility] DEPARTMENT OF PATHOLOGY AND [employer] [facility]IC[facility] Creatinine 0.7 (L) 0.8 - 1.5 mg/dL [facility] DEPARTMENT OF PATHOLOGY AND GENOMIC MEDICINE Glucose 86 65 - 100 mg/dL [facility] DEPARTMENT OF PATHOLOGY AND GENOMIC MEDICINE Calcium 8.7 8.6 - 10.7 mg/dL [facility] DEPARTMENT OF PATHOLOGY AND GENOMIC MEDICINE Protein 7.3 6.3 - 8.2 g/dL [facility] DEPARTMENT OF PATHOLOGY AND GENOMIC MEDICINE Albumin 3.5 3.2 - 5.0 g/dL [facility] DEPARTMENT OF PATHOLOGY AND GENOMIC MEDICINE A/G ratio 0.9 0.7 - 3.8 [facility] DEPARTMENT OF PATHOLOGY AND GENOMIC MEDICINE Alkaline phosphatase 71 30 - 120 U/L [facility] DEPARTMENT OF PATHOLOGY AND GENOMIC MEDICINE AST 31 15 - 37 U/L [facility] DEPARTMENT OF PATHOLOGY AND GENOMIC MEDICINE ALT 24 (L) 30 - 65 U/L [facility] DEPARTMENT OF PATHOLOGY AND GENOMIC MEDICINE Total bilirubin 1.2 0.2 - 1.2 mg/dL [facility] DEPARTMENT OF PATHOLOGY AND GENOMIC MEDICINE Specimen Plasma specimen Performing Organization Address City/State/[facility] Mexicocode Phone Number [facility] DEPARTMENT [place] [address] [place] [address] PATHOLOGY AND GENOMIC MEDICINE * ECG Pre/Post Op (05/23/2017 2:36 PM CDT) Ventricular rate 73 [facility] Atrial rate 73 [facility] UT interval 136 [facility] QRSD interval 84 [facility] QT interval 402 [facility] QTC interval 442 [facility] P axis 1 26 [facility] QRS axis 1 10 [facility] T wave axis 0 [facility] EKG impression Normal sinus rhythm-ST & T [facility] wave abnormality, consider anterolateral ischemia-Prolonged QT-Abnormal ECG-No previous ECGs available- Performing Organization Address City/State/Zipcode Phone Number [facility] M[facility] [address] [place] [address] after 05/18/2017 Insurance Payer Benefit Subscriber ID Type Phone Address Plan / Group [employer] MEDICARE HUMANA xxxxxxxxx PPO MEDICARE PPO/PFFS/E [facility] Advance Directives Patient has advance care planning documents on file. For more information, zacarias palumbo contact: Luis Morgan [address] [facility] [place] [address]
--- OUTSIDE RECORDS SUMMARY | 2018-05-19 18:22 | XMS REPORT | Continuity of Care Document ---
Author Author Thong elaina [facility] Interface Address Unknown Phone Unavailable Problems Problem Status Onset Date Classification Date Reported Comments Source CHEST PAIN Active 03/25/2018 [place] KRUEGER, UTI Active 03/21/2018 [facility] UPPER ABDOMINAL PAIN Active 03/21/2018 [facility] R92.8 Active 08/26/2017 [facility] DDC-6 MONTH F/U VISIT Active 03/03/2015 [facility] FOLLOW UP Active 01/29/2015 [facility] CIRRHOSIS HEP C Active 11/21/2014 [facility] 571.8 - CHRONIC LIVER D Active 11/13/2014 [facility] Hook[facility] HEP C Active 07/11/2014 [facility] 379.91 - PAIN IN OR AROU Active 05/27/2014 LLOYD Shields HEP C Active 04/25/2014 [facility] FOLLWO UP Active 04/24/2014 [facility] DDC-HEP C VISIT Active 03/25/2014 [facility] BDDC/ ESOPHAGEAL VARICES Active 03/25/2014 [facility] NEW PATIENT/ CIRRHOSIS, HEP C/ REF. Active 02/21/2014 [facility] Cholelithiasis Active Problem 09/04[facility] Compensated cirrhosis related to hepatitis C virus (<span ID="[id number]">Confirmed</span>) Active Problem 09/04/2017 [facility] COPD (<span ID="[id number]">Confirmed</span>) Active Problem 09/04/2017 [facility] Hepatitis C Resolved Problem 09/04/2017 [facility] HTN (<span ID="[id number]">Confirmed</span>) Active Problem 09/04/2017 [facility] Osteopenia Active Problem 09/04/2017 [facility] Postnecrotic cirrhosis of liver Active Problem 09/04/2017 [facility] OPIBernice Shields,[facility] Cholelithiasis Active Problem 10/13/2014 [facility], L[facility]YD Shields, [place] COPD (<span ID="[id number]">Confirmed</span>) Active Problem 10/13/2014 [facility], [facility] Shields, [place] HTN (<span ID="[id number]">Confirmed</span>) Active Problem 10/13/2014 [facility], L[facility]YD Quitman, [place] Postnecrotic cirrhosis of liver Active Problem 10/13/2014 [facility], [place] Cellulitis Active Problem 03/21/2018 [facility] CIRRHOSIS OF LIVER NOS Active [facility] ROUTINE MEDICAL EXAM Active [facility] MEDICAL SERVICES NOT AVAILABLE IN HOME Active [facility] ENCNTR FOR GENERAL ADULT MEDICAL EXAM W/ Active [facility] Medications Medication Details Route Status Patient Instructions Ordering Provider Order Date Source Furosemide 40 Mg Tablet, 40 Mg Oral Daily Active 03/13/2018 [facility] Harvoni See Instructions, 1 tab po daily, 0 Refill(s)Special Instructions: 1 tab po daily Active 10/10/2014 [facility] Famotidine 20 MG Oral Tablet 20 mg=1 tab, PO, QPM, Heartburn, ONLY TAKE NEEDED FOR HEARTBURN., X 30 day, # 30 tab, 2 Refill(s), Pharmacy: [facility] [id number] Instructions: ONLY TAKE NEEDED FOR HEARTBURN. Active 05/23/2014 [facility] Hepatitis B Surface Antigen Vaccine 0.01 MG/ML Injectable Suspension 10 microgram, 1 mL, Route: IM, ONCE, Dosing Weight 77.4, kg, Priority: STAT, Start date: 05/23/14 11:13:00, Stop date: 05/23/14 11:13:00 Inactive 05/23/2014 [facility] milk thistle oral capsule 0 Refill(s) Active 03/25/2014 [facility] carvedilol 3.125 mg oral tablet 3.125 mg=1 tab, PO, Q12H, # 60 tab, 0 Refill(s) Active 03/25/2014 [facility] spironolactone 50 mg oral tablet 50 mg=1 tab, PO, BID, # 60 tab, 0 Refill(s) Active 03/25/2014 [facility] citalopram 40 mg oral tablet 40 mg=1 tab, PO, Daily, # 30 tab, 0 Refill(s) Active 03/25/2014 [facility] cetirizine 10 mg oral tablet 10 mg=1 tab, PO, Daily, # 30 tab, 0 Refill(s) Active 03/25/2014 [facility] Carvedilol 3.125 Mg Tablet Twice A Day [facility] Ciprofloxacin Hcl (Cipro) 500 Mg Tablet Every 12 Hours [facility] Donepezil Hcl (Aricept) 5 Mg Tablet Bedtime [facility] Doxycycline Hyclate 100 Mg Capsule Every 12 Hours [facility] Duloxetine Hcl (Cymbalta) 30 Mg Capsule.dr Long [facility] Furosemide (Lasix) 20 Mg Tablet Every Morning [facility] Omeprazole 40 Mg Capsule. Daily [facility] Pantoprazole Sodium (Protonix) 40 Mg Tablet. Every Morning [facility] Potassium Chloride (K Dur*) 10 Meq Tabcr Every Morning [facility] Silver Sulfadiazine (Silvadene) 20 Gm Cream..g. Twice A Day [facility] Spironolactone 50 Mg Tablet Daily [facility] Tramadol Hcl (Ultram) 50 Mg Tablet Every 8 Hours as needed for Pain [facility] Allergies, Adverse Reactions, Alerts Substance Category Reaction Severity Reaction type Status Date Reported Comments Source Immunizations Immunization Date Given Site Status Last Updated Comments Source Results Order Name Results Value Reference Range Date Interpretation Comments Source Chest 1view DX Chest 1view DX EXAM: XR CHEST 1 VIEW DATE: 03/25/2018 9:59 PM GEOSPATIAL EXTRACTOR ANALYSIS INDICATION: Shortness of breath. COMPARISON: 03/21/2018. TECHNIQUE: Frontal radiograph of the chest was obtained. FINDINGS: No focal consolidation or pneumothorax is identified. The cardiac silhouette is enlarged, with prominence of the central pulmonary vasculature. The costophrenic recesses are sharp and without effusion. No acute osseous abnormality is noted. IMPRESSION: No acute cardiopulmonary abnormality. SL: [id number] 03/25/2018 - - Read by: Tom Bunn MD Dictated Date/time: 03/25/18 22:42 Electronically Signed by: Tom Bunn MD 03/25/18 22:42 FINAL REPORT [facility] Chest Pulmonary Embolism CTA Chest Pulmonary Embolism CTA Clinical Indication: Bilateral rib pain when breathing. Shortness of breath; Comparison: None TECHNIQUE: Sequential trans-axial images were obtained thru the chest and upper abdomen after administration of iodinated contrast. CTA protocol was performed with 3-D postprocessing reconstruction MIPs and volume rendering. Coronal and sagittal reconstructions were obtained. 100 cc of nonionic contrast material was used for the exam. Dose: RQB=661.69 mGy-cm CT imaging performed at this location utilizes radiation dose optimization techniques which include one or more of the following: -Automated exposure control -Adjustment of the mA and/or kV according to patient size -Use of iterative reconstruction technique FINDINGS: LUNG PARENCHYMA AND PLEURA: There are no lung nodules. There is no evidence of any abnormal mass.. There is mild left basilar airspace disease along with mild bronchiectatic disease. There is no pneumothorax. AIRWAY: The central airway is normal. . MEDIASTINUM: No significant mediastinal lymphadenopathy. HEART: There is no evidence of RV strain. The cardiac chambers are moderately enlarged. There is no pericardial effusion. VASCULAR STRUCTURES: There are no segmental pulmonary emboli noted. The main, right and left pulmonary arteries are dilated.. The great vessels are unremarkable. The thoracic aorta is prominent with a maximum size of 3.9 cm. The superior vena cava is unremarkable. OSSEOUS STRUCTURES: There are no definite significant osseous abnormalities seen. VISUALIZED UPPER ABDOMEN: The visualized upper abdomen demonstrates cirrhosis of the liver along with multiple splenic varices IMPRESSION: 1. No evidence of pulmonary emboli. 2. Dilated pulmonary arteries suggestive of pulmonary hypertension. 3. Left basilar atelectasis. 4. Bilateral mild bronchiectatic disease. 5. Cirrhosis with splenic varices. 6. Ectasia of the ascending thoracic aorta. 7. Cardiomegaly SL: [id number] 03/21/2018 - - Read by: Sunny Gonsalez MD Dictated Date/time: 03/21/18 13:51 Electronically Signed by: Sunny Gonsalez MD 03/21/18 13:57 FINAL REPORT [facility] Chest wo contrast CT Chest wo contrast CT Patient Name: HOLDEN LEIGH FREEZE : 1950; Age: 67 years y/o Female MR: [id number] * COMPUTED TOMOGRAPHY SCAN OF THE CHEST -- without contrast HISTORY: Dyspnea Imaging studies reviewed: Chest radiographs from today and 12/28/2013.. TECHNIQUE: Helical CT images were obtained from the thoracic inlet to the upper abdomen. Intravenous contrast was not administered. Sagittal and coronal reconstructions were provided. CT imaging performed at this location utilizes radiation dose optimization techniques which include one or more of the following: -Automated exposure control. -Adjustment of the mA and/or kV according to patient size. -Use of iterative reconstruction technique. CT radiation dose DLP: 346 mGy-cm IMPRESSION: 1. No evidence for an active or acute process. There are no infiltrates or pleural effusions. 2. Mild chronic appearing nonspecific interstitial changes, predominantly in the lung bases. There is an 18 mm bulla and a 9 mm bulla in the left lung base. 3. Mild cardiomegaly. There is no pericardial effusion. 4. Dense left coronary artery calcifications. There are also mild right coronary artery calcifications. 5. Borderline aneurysmal dilatation of the ascending thoracic aorta (3.9 cm in maximal diameter). There are minimal atherosclerotic calcifications involving thoracic aorta. The remainder of the thoracic aorta is normal in caliber. 6. There is enlargement of the main pulmonary artery which measures approximately 4.3 cm in maximal diameter, suggestive of pulmonary arterial hypertension. 7. No suspicious mass or adenopathy is seen within the chest. 8. Findings consistent with cirrhosis. There is a nodular appearance the margin of the liver. The left lobe is enlarged. The right lobe is small. No focal lesions are seen within the liver on this limited noncontrast study. 9. Mild splenomegaly. The spleen measures approximately 11.9 cm in length and 8.9 x 5.6 cm in cross-section. 10. Prominent varices are noted in the left upper quadrant posterior to the spleen. No significant gastroesophageal varices are identified. 11. Trace amount of ascites is demonstrated in the upper abdomen. 10. There are postcholecystectomy changes. Surgical clips are noted in the right upper quadrant. 12. Mild anasarca. 13. There are mild scattered degenerative changes involving the thoracic spine. The regional skeleton is otherwise unremarkable. SL: [id number] 03/21/2018 - - Read by: Nima Becker MD Dictated Date/time: 03/21/18 10:33 Electronically Signed by: Nima Becker MD 03/21/18 10:40 FINAL REPORT [facility] Chest 1view DX Chest 1view DX Clinical Indication: - sob; Comparison: None FINDINGS: AP chest radiographs shows normal lung volumes without interstitial or airspace opacities, pleural effusions or pneumothorax. The heart size and pulmonary vasculature are normal. The trachea is midline. There are no clinically significant osseous abnormalities noted. IMPRESSION: No chest radiographic evidence of acute cardiopulmonary disease. SL: [id number] 03/21/2018 - - Read by: Sunny Gonsalez MD Dictated Date/time: 03/21/18 08:30 Electronically Signed by: Sunny Gonsalez MD 03/21/18 08:30 FINAL REPORT [facility] Serum or plasma creatine kinase measurement (enzymatic activity/volume) 38 29 - 168 03/20/2018 [facility] Serum or plasma creatine kinase MB measurement (mass/volume) 1.80 0 - 5.0 03/20/2018 [facility] Troponin I measurement by highly sensitive enzyme immunoassay 0.020 0 - 0.300 03/20/2018 [facility] Urine color determination YELLOW YELLOW 03/19/2018 [facility] Urine clarity CLEAR CLEAR 03/19/2018 [facility] Specific gravity of Urine by Test strip 1.010 1.010 - 1.025 03/19/2018 [facility] Urine pH measurement by automated test strip 5 5 - 7 03/19/2018 [facility] Urine leukocyte esterase detection by dipstick NEGATIVE NEGATIVE 03/19/2018 [facility] Urine nitrite detection NEGATIVE NEGATIVE 03/19/2018 [facility] Urine protein measurement by test strip (mass/volume) NEGATIVE NEGATIVE 03/19/2018 [facility] Urine glucose detection NEGATIVE NEGATIVE 03/19/2018 [facility] Urine ketones detection by automated test strip NEGATIVE NEGATIVE 03/19/2018 [facility] Urine urobilinogen measurement by test strip (mass/volume) 1 0.2 - 1 03/19/2018 [facility] Urine total bilirubin measurement (mass/volume) NEGATIVE NEGATIVE 03/19/2018 [facility] Urine erythrocytes detection TRACE NEGATIVE 03/19/2018 [facility] Automated urine sediment leukocyte count by microscopy (number/high power field) NONE 0 - 5 03/19/2018 [facility] Erythrocytes detection in urine sediment by light microscopy 0-5 0 - 5 03/19/2018 [facility] Bacteria detection in urine sediment by light microscopy NONE NONE 03/19/2018 [facility] Epithelial cells detection in urine sediment by light microscopy FEW NONE 03/19/2018 [facility] Fibrin D-dimer DDU measurement in platelet poor plasma (mass/volume) 2360 0 - 400 03/19/2018 [facility] Blood leukocytes automated count (number/volume) 6.50 4.8 - 10.8 03/18/2018 [facility] Blood erythrocytes automated count (number/volume) 3.85 3.6 - 5.1 03/18/2018 [facility] Blood hemoglobin measurement (moles/volume) 13.2 12.0 - 16.0 03/18/2018 [facility] Automated blood hematocrit (volume fraction) 39.7 34.2 - 44.1 03/18/2018 [facility] Automated erythrocyte mean corpuscular volume 103.1 81 - 99 03/18/2018 [facility] Automated erythrocyte mean corpuscular hemoglobin (mass per erythrocyte) 34.3 28 - 32 03/18/2018 [facility] Automated erythrocyte mean corpuscular hemoglobin concentration measurement (mass/volume) 33.2 31 - 35 03/18/2018 [facility] RDW BldCo-Rto 15.6 11.7 - 14.4 03/18/2018 [facility] Automated blood platelet count (count/volume) 60 140 - 360 03/18/2018 [facility] Automated blood segmented neutrophil count as percentage of total leukocytes 72.9 38.7 - 80.0 03/18/2018 [facility] Automated blood lymphocyte count as percentage ot total leukocytes 16.0 18.0 - 39.1 03/18/2018 [facility] Automated blood monocyte count as percentage of total leukocytes 8.9 4.4 - 11.3 03/18/2018 [facility] Automated blood eosinophil count as percentage of total leukocytes 1.1 0.0 - 6.0 03/18/2018 [facility] Automated blood basophil count as percentage of total leukocytes 0.5 0.0 - 1.0 03/18/2018 [facility] IM GRANULOCYTES % 0.6 0.0 - 1.0 03/18/2018 [facility] Automated blood neutrophil count 4.7 2.1 - 6.9 03/18/2018 [facility] Blood lymphocytes count (number/volume) 1.0 1.0 - 3.2 03/18/2018 [facility] Blood monocytes automated count (number/volume) 0.6 0.2 - 0.8 03/18/2018 [facility] Automated blood eosinophil count 0.1 0.0 - 0.4 03/18/2018 [facility] Automated blood basophil count (count/volume) 0.0 0.0 - 0.1 03/18/2018 [facility] Absolute Immature Granulocyte (auto 0.04 0 - 0.1 03/18/2018 [facility] Prothrombin time (PT) in platelet poor plasma by coagulation assay 15.8 11.9 - 14.5 03/18/2018 [facility] INR in Platelet poor plasma by Coagulation assay 1.16 03/18/2018 [facility] Activated partial thromboplastin time (aPTT) in platelet poor plasma bycoagulation assay 24.7 23.8 - 35.5 03/18/2018 [facility] Serum or plasma sodium measurement (moles/volume) 136 136 - 145 03/18/2018 [facility] Serum or plasma potassium measurement (moles/volume) 3.8 3.5 - 5.1 03/18/2018 [facility] Serum or plasma chloride measurement (moles/volume) 103 98 - 107 03/18/2018 [facility] Serum or plasma carbon dioxide, total measurement (moles/volume) 20 22 - 29 03/18/2018 [facility] Serum or plasma anion gap 16.8 8 - 16 03/18/2018 [facility] Serum or plasma urea nitrogen measurement (mass/volume) 31 7 - 26 03/18/2018 [facility] Serum or plasma creatinine measurement (mass/volume) 0.87 0.57 - 1.11 03/18/2018 [facility] Serum or plasma urea nitrogen/creatinine mass ratio 36 6 - 25 03/18/2018 [facility] Estimated glomerular filtration rate (GFR) determination > 60 60 03/18/2018 [facility] Glucose measurement 103 74 - 118 03/18/2018 [facility] Serum or plasma calcium measurement (mass/volume) 9.2 8.4 - 10.2 03/18/2018 [facility] Serum or plasma total bilirubin measurement (mass/volume) 2.5 0.2 - 1.2 03/18/2018 [facility] Aspartate Amino Transf (AST/SGOT) 34 5 - 34 03/18/2018 [facility] Serum or plasma alanine aminotransferase measurement (enzymatic activity/volume) 24 0 - 55 03/18/2018 [facility] Serum or plasma protein measurement (mass/volume) 6.6 6.5 - 8.1 03/18/2018 [facility] Serum or plasma albumin measurement (mass/volume) 3.7 3.5 - 5.0 03/18/2018 [facility] Plasma globulin measurement (mass/volume) 2.9 2.3 - 3.5 03/18/2018 [facility] Serum or plasma albumin/globulin mass ratio 1.3 0.8 - 2.0 03/18/2018 [facility] Serum or plasma alkaline phosphatase measurement (enzymatic activity/volume) 54 40 - 150 03/18/2018 [facility] BNP Bld-[facility] 529.1 0 - 100 03/18/2018 [facility] Serum or plasma trough vancomycin level at trough (mass/volume) 26.8 5.0 - 10.0 03/11/2018 [facility] Serum or plasma hepatitis C virus RNA detection by probe and target amplification method Negative Negative 03/10/2018 [facility] Blood platelets count by estimate (number/volume) MODERATELY DECREASED 03/09/2018 [facility] Platelet morphology NORMAL 03/09/2018 [facility] Blood anisocytosis detection by light microscopy SLIGHT 03/09/2018 [facility] RBC morphology NORMAL 03/09/2018 [facility] Serum or plasma conjugated bilirubin measurement (mass/volume) 1.8 0.0 - 0.5 03/09/2018 [facility] Serum or plasma folate measurement (mass/volume) 19.8 7.0 - 15.4 03/08/2018 [facility] Erythrocyte sedimentation rate by Westergren method 11 0 - 20 03/08/2018 [facility] Lactic Acid Level 12.0 4.5 - 19.8 03/08/2018 [facility] Serum or plasma magnesium measurement (mass/volume) 1.5 1.3 - 2.1 03/08/2018 [facility] Ammonia Ser-nc 36 31 - 123 03/08/2018 [facility] Serum or plasma thyrotropin measurement by detection limit <=0.005 miu/l (units/volume) 1.647 0.350 - 4.940 03/08/2018 [facility] Serum hepatitis C virus antibody detection >11.0 0.0 - 0.9 03/08/2018 [facility] Serum or plasma C reactive protein measurement (mass/volume) 12.1 0.0 - 4.9 03/08/2018 [facility] Blood culture NO GROWTH AFTER 5 DAYS, FINAL REPORT 03/06/2018 [facility] Stereo Breast BX Uni Primary Side MA [...] dated: 07/28/2017 mammogram and 06/29/2017 mammogram - [facility]. A stereotactic guided biopsy was [...] demonstrate stability.(03/03/2018) This exam was interpreted at [id number] for [facility]. Juvencio marsh/:09/05/2017 14:17:32 Manager Discovery(s): Crystal Champion, [facility] letter sent: Post Bx Results 09/01/2017 - - Read by: Juvencio Patel MD Dictated Date/time: 09/05/17 14:17 Electronically Signed by: Juvencio Patel MD 09/05/17 14:17 FINAL REPORT [facility] Breast Mammo Diag YANI incl CAD MA Breast Mammo Diag YANI incl CAD MA BILATERAL DIGITAL DIAGNOSTIC MAMMOGRAM WITH CAD: 07/28/2017 CLINICAL: Other Abnormal And Inconclusive Findings On Diagnostic Imaging Of Breast/R92.8. Current study was evaluated with a Computer Aided Detection (CAD) system. COMPARISON:Comparison is made to exam dated: 06/29/2017 mammogram - [facility]. TECHNIQUE: Mammographic views were obtained [...] biopsy results. This exam was interpreted at [id number] for [place], SL 15. SUMMARY: These findings were discussed [...] Diagnostic Imaging. Jus Andujar M.D. rsl/:07/28/2017 11:30:49 Manager Discovery(s): RT Elvis(R)(M), [facility] letter sent: BI-RADS 4/5 Mammogram BI-RADS: 4a Suspicious abnormality - low suspicion for malignancy 07/28/2017 - - Read by: Jus Andujar MD Dictated Date/time: 07/28/17 11:30 Electronically Signed by: Jus Andujar MD 07/28/17 11:30 FINAL REPORT [facility] Brain w/wo contrast MRI Brain w/wo contrast MRI Patient Name: HOLDEN ONEILL : 1950; Age: 66 years y/o Female MR: [id number] Study: Brain w/wo contrast MRI 07/15/2017 8:06 [...] are recommended. This exam was interpreted at [id number] for KAROL Powell 15. Professional services are provided by the [facility]. Guillaume Casiano M.D., cm/andrei:07/13/2017 09:44:20 Manager Discovery(s): RT Elvis(R)(M), [facility] letter sent: BI-RADS 0 Mammogram [...] COMPLETE WITH DOPPLER DATE: 05/13/2015 11:14 AM GEOSPATIAL EXTRACTOR ANALYSIS INDICATION: B18.2 Chronic viral hepatitis C COMPARISON: [...] - This report was dictated by a Clubhouse Manager/Fellow. I have personally reviewed the images as well as the Resident's interpretation and agree with the findings. Read by: Rishi Shafer MD Resident: Rsihi Shafer MD Dictated Date/time: 11/27/14 10:57 Electronically Signed by: Gerardo Rajput MD 11/27/14 14:31 FINAL REPORT [facility] Liver w Liver vessels Doppler US [...] - This report was dictated by a Clubhouse Manager/Fellow. I have personally reviewed the images as well as the Resident's interpretation and agree with the findings. Read by: Rishi Shafer MD Resident: Rishi Shafer MD Dictated Date/time: 11/27/14 10:57 Electronically Signed by: Gerardo Rajput MD 11/27/14 14:31 FINAL REPORT [facility] Vital Signs Vital Sign Value Date Comments Source Weight 70.17 09/01/2015 [facility] BMI Calculated 28.29 09/01/2015 [facility] Systolic (mm Hg) 129 09/01/2015 [facility] Diastolic (mm Hg) 76 09/01/2015 [facility] Temperature Oral (F) 97.5 F 09/01/2015 [facility] Heart Rate 66 09/01/2015 [facility] Height 157.48 cm 09/01/2015 [facility] Systolic (mm Hg) 107 03/03/2015 [facility] [facility] Diastolic (mm Hg) 67 03/03/2015 [facility] Height 157.48 cm 03/03/2015 [facility] BMI Calculated 29.53 03/03/2015 [facility] Weight 73.239 03/03/2015 [facility] Height 157.4 cm 10/10/2014 [facility] Weight 73.182 10/10/2014 [facility] BMI Calculated 29.54 10/10/2014 [facility] Heart Rate 67 10/10/2014 [facility] Systolic (mm Hg) 106 10/10/2014 [facility] Center Diastolic (mm Hg) 65 10/10/2014 [facility] Systolic (mm Hg) 104 07/11/2014 [facility] Center Diastolic (mm Hg) 65 07/11/2014 [facility] Heart Rate 69 07/11/2014 [facility] Weight 74.205 07/11/2014 [facility] Height 157.48 cm 07/11/2014 [facility] BMI Calculated 29.92 07/11/2014 [facility] Weight 77.4 05/23/2014 [facility] Height 160 cm 05/23/2014 [facility] BMI Calculated 30.23 05/23/2014 [facility] Center Diastolic (mm Hg) 74 03/25/2014 [facility] Respitory Rate 15 03/25/2014 [facility] Heart Rate 75 03/25/2014 [facility] Systolic (mm Hg) 124 03/25/2014 [facility] Height 157.48 cm 03/25/2014 [facility] Weight 79.5 03/25/2014 [facility] BMI Calculated 32.06 03/25/2014 [facility] Encounters Location Location Details Encounter Type Encounter Number Reason For Visit Attending Provider ADM Date DC Date Status Source [facility] [place] [facility] [id number] Freeman Marielatrellbimal 12/26/2013 12/27/2013 [facility] [place] [facility] [place] [facility] [id number] Feliciano Hanks 12/28/2013 12/29/2013 [facility] [place] [facility] Outpatient [id number] Polo Bonilla 03/25/2014 03/26/2014 [facility] Phone Message [id number] 03/27/2014 03/29/2014 [facility] Bedded Outpatient [id number] Sharan Villar 04/23/2014 04/23/2014 [facility] Outpatient [id number] Sharan Villar 05/23/2014 05/24/2014 [facility] [place] [facility] [id number] Sharan Villar 05/27/2014 05/28/2014 [facility] [place] [facility] Outpatient [id number] Sharan Villar 07/11/2014 07/12/2014 [facility] Outpatient [id number] Sharan Villar 10/10/2014 10/11/2014 [facility] Outpatient [id number] Sharan Villar 03/03/2015 03/04/2015 [facility] [place] [facility] [id number] Sharan Villar 05/13/2015 05/14/2015 [facility] Outpatient [id number] Sharan Villar 09/01/2015 09/02/2015 [facility] [place] [facility] [id number] Hallie Chapman 04/22/2016 04/23/2016 [facility] [place] [facility] [place] [facility] [id number] Zoltan Hussein 06/29/2017 06/30/2017 [facility] [place] [facility] [place] [facility] [id number] Zoltan Hussein 07/15/2017 07/16/2017 OPIBernice Shields [facility] [place] [facility] Di[facility] [id number] Zoltan Hussein 07/28/2017 07/29/2017 [place] [place] [facility] Outpatient [id number] Zoltan Hussein 09/01/2017 09/02/2017 [facility] Departed Emergency Room [id number] BELA VÁSQUEZ MD 02/08/2018 02/09/2018 [facility] Discharged Inpatient [id number] ZOLTAN HUSSEIN MD 03/10/2018 03/13/2018 [facility] Departed Emergency Room [id number] LUDWIN HINOJOSA MD 03/18/2018 03/19/2018 [facility] Departed Emergency Room [id number] LUDWIN HINOJOSA MD 03/20/2018 03/21/2018 [facility] Procedures Procedure Code Date Perfomer Comments Source Computed tomography of chest with contrast [id number] 03/19/[address] [facility] X-ray of chest, two views [id number] 03/18/[address] [facility] Computed tomography of chest with contrast [id number] 03/09/[address] [facility] US abdomen complete [id number] 03/08/2018 [facility] Hysterectomy [id number] [facility] [place] [facility]ste[facility] [id number] [facility] Hysterectomy [id number] [facility] Hysterectomy [id number] [facility]
[2018-05-19 19:43] LABS: BILIRUBIN,URINE NEGATIVE (NEGATIVE); CLARITY,URINE CLEAR (CLEAR); COLOR,URINE YELLOW (YELLOW); KETONES,URINE NEGATIVE (NEGATIVE); LEUKOCYTE ESTERASE ,URINE NEGATIVE (NEGATIVE); NITRITE,URINE NEGATIVE (NEGATIVE); PREGNANCY TEST, URINE NEGATIVE (NEGATIVE); PROTEIN,URINE DIPSTICK NEGATIVE (NEGATIVE); URINE UROBILINOGEN 1 mg/dL (0.2 - 1)
[2018-05-19 19:56] LABS: BACTERIA,URINE FEW /HPF; EPITHELIAL CELLS,URINE FEW /LPF; WBC,URINE (MAN) 0-5 /HPF (0-5)
[2018-05-19] MEDS ORDERED: KETOROLAC TROMETHAMINE 30 MG/ML VIAL IM ONE (20:30)
--- NOTE | 2018-05-19 21:54 | Diagnostic Imaging Report ---
EXAMINATION: CHEST 2 VIEWS INDICATION: ^EPIGASTRIC PAIN COMPARISON: CT chest 03/19/2018. Chest x-ray 03/18/2018. FINDINGS: PA and lateral views TUBES and LINES: None. LUNGS: Lungs are well inflated. Lungs are clear. There is no evidence of pneumonia or pulmonary edema. PLEURA: No pleural effusion or pneumothorax. HEART AND MEDIASTINUM: The cardiomediastinal silhouette is unremarkable. Pulmonary arterial hypertension. There are atherosclerotic calcifications within the aorta. BONES AND SOFT TISSUES: No acute osseous lesion. Soft tissues are unremarkable. UPPER ABDOMEN: No free air under the diaphragm. There are cholecystectomy clips. IMPRESSION: No acute thoracic abnormality. Pulmonary arterial hypertension. Signed by: Dr. Carlton Granger M.D. on 05/19/2018 9:51 PM
[2018-05-19] MEDS ORDERED: LIDOCAINE 5% PATCH TP ONE (23:15)
[2018-05-20 01:28] LABS: BASOPHILS % 0.8 % (0.0-1.0); EOSINOPHILS # (AUTO) 0.1 (0.0-0.4); HEMATOCRIT 38.8 % (34.2-44.1); HEMOGLOBIN 12.8 g/dL (12.0-16.0); LYMPHOCYTES # (AUTO) 0.8 (1.0-3.2); LYMPHOCYTES % 23.2 % (18.0-39.1); MEAN CORPUSCULAR HEMOGLOBIN 33.8 pg (28-32); MEAN CORPUSCULAR VOLUME 102.4 fL (81-99); MONOCYTES # (AUTO) 0.2 (0.2-0.8); MONOCYTES % 6.5 % (4.4-11.3); NEUTROPHILS # (AUTO) 2.3 (2.1-6.9); NEUTROPHILS % 65.2 % (38.7-80.0); PLATELET COUNT 59 x10e3/uL (140-360); RED BLOOD COUNT 3.79 x10e6/uL (3.6-5.1); RED CELL DISTRIBUTION WIDTH 13.6 % (11.7-14.4)
[2018-05-20 01:34] LABS: ALANINE AMINOTRANSFERASE 12 IU/L (0-55); ALKALINE PHOSPHATASE 78 IU/L (40-150); ANION GAP 12.4 mmol/L (8-16); BLOOD UREA NITROGEN 14 mg/dL (7-26); BUN/CREATININE RATIO 20 (6-25); CALCIUM 8.8 mg/dL (8.4-10.2); CARBON DIOXIDE 27 mmol/L (22-29); CHLORIDE 102 mmol/L (98-107); CREATINE KINASE 33 IU/L (29-168); CREATININE, SERUM 0.71 mg/dL (0.57-1.11); EST GLOMERULAR FILTRATION RATE > 60 ML/MIN (60-); GLUCOSE 104 mg/dL (74-118); POTASSIUM 3.4 mmol/L (3.5-5.1); SODIUM 138 mmol/L (136-145)
[2018-05-20 02:08] LABS: ALBUMIN 3.3 g/dL (3.5-5.0); ALBUMIN/GLOBULIN RATIO 1.1 (0.8-2.0)
[2018-05-20 02:36] VITALS: BP 107/83
== END 2018-05-20 02:37 | disposition home or self-care (01) ==
LOC: ER 18:19
DX: R30.0 Dysuria (principal); R10.2 Pelvic and perineal pain; R10.13 Epigastric pain; R07.89 Other chest pain; I10 Essential (primary) hypertension; J44.9 Chronic obstructive pulmonary disease, unspecified; I25.2 Old myocardial infarction
CPT/HCPCS: 36415; 71046; 80053; 81001; 81025; 82550; 82553; 84484; 85025; 93005; 99284; J1885

== ENCOUNTER → 2019-11-30 | Outpatient (CLI) | payer MEDICARE | LOC: MAMMO 10:02 | PROVIDERS: ATTEND Internal Medicine | DX: Z12.31 Encounter for screening mammogram for malignant neoplasm of breast (principal) | CPT/HCPCS: 77067 ==